=== PATIENT | female | born 1955 | race Caucasian/White ===

== ENCOUNTER 2022-02-05 | Outpatient (REF) | payer OTHER, MEDICARE, SELFPAY ==
--- NOTE | ~2022-02-05 | XR_ITS ---
EXAMINATION: XR HIP, LEFT CLINICAL INFORMATION: Hip pain COMPARISON: None TECHNIQUE: Two views of the left hip. Pelvis one view FINDINGS: Severe left hip arthritis, marked joint space loss, osteophytes, sclerosis. No fracture or dislocation. Right hip joint space is maintained. Bilateral greater trochanteric spurring. No acute pelvic fractures seen. Mild bilateral SI joint arthritis. Mild spondylosis in the visualized lower lumbar spine. No abnormal soft tissue calcification. XR/XR hip LT w PEL1V IMPRESSION: Severe left hip arthritis. Mild bilateral SI joint arthritis.
== END 2022-02-05 00:01 | disposition home or self-care (01) ==
LOC: HO.HOSX
PROVIDERS: Visit Provider Physician Assistant
DX: M25.552 Pain in left hip (principal)
CPT/HCPCS: 73502; 99202

== ENCOUNTER 2023-05-31 11:23 | Inpatient (IN) | payer MEDICARE, SELFPAY ==
--- NOTE | ~2023-05-31 | XR_ITS ---
EXAMINATION: XR CHEST CLINICAL INFORMATION: Shortness of breath COMPARISON: None available. TECHNIQUE: Frontal view of the chest was obtained. FINDINGS: Limited due to patient body habitus. Overall density in the mid to lower lung zone on the right may represent underlying infiltrate. The left lung is grossly clear. There is no convincing evidence for failure. Mild cephalization of the vasculature. No effusion. Cardiac silhouette is prominent but again this is a portable study. Calcification within the aortic arch. XR/XR chest 1V IMPRESSION: Limited exam from patient body habitus and portable study. Indistinct right hilum with opacity in the mid to lower lung zone on the right may represent evolving infiltrate. Follow-up films recommended
[2023-05-31 11:43] VITALS: BP 115/54; BP 122/72; PULSE 94; PULSE 95; RESP 20; TEMP 36.6; O2SAT 96; O2SAT 97; BMI 56.8
--- NOTE | 2023-05-31 13:12 | ECG_ITS ---
Test Reason : CP Blood Pressure : / mmHG Vent. Rate : 091 BPM Atrial Rate : 091 BPM P-R Int : 182 ms QRS Dur : 104 ms QT Int : 370 ms P-R-T Axes : 054 241 051 degrees QTc Int : 455 ms Normal sinus rhythm Right superior axis deviation Pulmonary disease pattern Incomplete right bundle branch block Right ventricular hypertrophy Septal infarct , age undetermined Abnormal ECG No previous ECGs available Referred By: Dona Ryder Electronically Signed By:KAELYN BOWERS MD
--- NOTE | 2023-05-31 13:35 | ED_ITS ---
HPI - General Adult General Chief complaint: General Medical Stated complaint: LOW O2 AND COUGH SINCE MAY 20 Time Seen by Provider: 05/31/23 13:35 Source: patient and family () Mode of arrival: EMS Limitations: no limitations History of Present Illness HPI narrative: 67-year-old female who had a follow-up appointment with her doctor today and was found to have an O2 saturation of 85% on room air, patient was transported by EMS, on 2 L O2 saturation was 97%. Patient states that she has not been feeling well since February of 2023. She states that over a 1 month. She went from 330 lb to 390 lb and had significant peripheral edema and edema of her abdomen. She was started on Lasix 80 mg daily and states that she lost 40 lb. She states that in April of 2023 she developed cellulitis of her lower extremity and was admitted for several days at [facility]. She states she was then in a rehab center and completed 2 weeks of antibiotics. She believes that she has had increased lower extremity peripheral edema as well as edema accumulating in her abdomen. She states that since being discharged from her prison facility, she has had a cough which is occasionally productive of galindo to yellow thick sputum. She initially had fevers but these resolved after 3-4 days and since then she has had no fever or chills. She has had rhinorrhea. She denied sore throat, myalgias arthralgias. She states she does have chest pain with coughing. She complains of shortness of breath and significant dyspnea on exertion. She denied nausea or vomiting. She states that yesterday she developed diarrhea and had 4 orange colored stools with no blood or dark stools. She denied frequency, urgency or dysuria. Related Data Home Medications Medication Instructions Recorded Confirmed bupropion HCl 150 mg 24 hr tablet, 150 mg PO DAILY PRN 02/05/22 02/05/22 extended release furosemide 40 mg tablet 40 mg PO BID 02/05/22 02/05/22 hydrocodone 5 mg-acetaminophen 325 1 tab PO Q6H PRN pain 02/05/22 02/05/22 mg tablet potassium chloride 10 mEq 10 meq PO BID 02/05/22 02/05/22 tablet,extended release(part/cryst) triamcinolone acetonide 0.1 % 1 appl topical BID-TID 02/05/22 02/05/22 topical cream Allergies Allergy/AdvReac Type Severity Reaction Status Date / Time Sulfa (Sulfonamide Allergy Anaphylaxis Verified 02/05/22 10:54 Antibiotics) Review of Systems 2 Review of Systems: Yes all other systems are reviewed and are negative [facility] Past Medical History [facility] Narrative: Past medical history: Cellulitis, peripheral edema-states he has not been worked up for congestive heart failure. Past surgical history: Appendectomy, cholecystectomy, tonsillectomy, uterine ablation. Social history: The patient is a former smoker and states she stop smoking 20 years ago. She states that she smoked 1 pack per day for 31 years. She rarely drinks alcohol. She denies drug use. Onset Date is defined in the Problem List Problems that require an onset date and time if occurred within 24 hrs of arrival to the ED Aortic Dissection and Rupture; Neurologic impairment; Cardiopulmonary Arrest; Endotracheal Intubation; Insertion or Replacement of Mechanical Circulatory Assist Device Medical History (Updated 05/31/23 @ 18:23 by Juan Luis Taveras MD) Degenerative disc disease, lumbar Scoliosis Surgical History (Updated 02/05/22 @ 10:56 by KELSY Peralta) History of cholecystectomy Social History Social History (Updated 02/05/22 @ 10:57 by KELSY Peralta) Patient Tobacco Use Status: Former Tobacco user Smoked in Last 30 Days: No Use of substances other than those prescribed or required for medical reasons: No Advance Directives: No Advance Directives Information Provided: No Current occupational status: unemployed Physical Exam ED Vital Signs: Vital Signs - 24 hr 05/31/23 11:43 05/31/23 14:36 05/31/23 16:29 Temperature 97.8 F Pulse Rate 94 89 94 Respiratory Rate 20 20 14 Blood Pressure 115/54 L 124/64 132/61 Pulse Oximetry 96 94 90 L Oxygen Delivery Method Nasal Cannula Room Air Nasal Cannula Oxygen Flow Rate 2 2 05/31/23 18:07 Temperature Pulse Rate 89 Respiratory Rate 14 Blood Pressure Pulse Oximetry 97 Oxygen Delivery Method Nasal Cannula Oxygen Flow Rate 2 BMI result Body Mass Index 56.8 Vital signs were normal with an O2 saturation of 96% on 3 L of oxygen via nasal cannula Exam: General: Awake, alert in no distress, elevated BMI 56.8. Head: Normocephalic, atraumatic EENT: PERRL, Lids normal, sclera normal, conjunctiva normal, nose normal , ears normal, throat without erythema or exudates Neck: Supple, no adenopathy, no trachea midline or C-spine tenderness Lung: Diffuse rales, vesicular sounds on the right compared to left, slight wheezing at the end of expiration Chest: symmetric movement, nontender Heart: regular rate and rhythm, normal S1, S2 no murmurs or rubs Abdomen: soft, non-tender, nondistended, obese, normal bowel sounds Back: no vertebral tenderness, no CVAT Extremities: no deformities, moves all extremities symmetrically, 1+ pitting edema, symmetric Neuro: Awake, alert, oriented, normal speech, cranial nerves intact, moves all extremities symmetrically Psych: Pleasant, cooperative Medications Administered Discontinued Medications Generic Name Dose Route Start Last Admin Trade Name Freq PRN Reason Stop Dose Admin Furosemide 80 mg 05/31/23 14:11 05/31/23 14:44 Furosemide 100 Mg/10 Ml Vial IVPUSH 05/31/23 14:12 80 mg ONCE ONE Administration Protocol Furosemide 80 mg 05/31/23 16:57 05/31/23 17:59 Furosemide 100 Mg/10 Ml Vial IVPUSH 05/31/23 16:58 80 mg ONCE ONE Administration Protocol Ceftriaxone Sodium 1 gm/ 50 mls @ 100 mls/hr 05/31/23 14:11 05/31/23 15:23 Sodium Chloride IV 05/31/23 14:40 Infused ONCE ONE Infusion Azithromycin 500 mg/ Sodium 250 mls @ 125 mls/hr 05/31/23 14:11 05/31/23 17:28 Chloride IV 05/31/23 16:10 Infused ONCE ONE Infusion Medical Decision Making Medical Decision Making [facility] Narrative: 67-year-old female with a history of peripheral edema, possibly CHF, cellulitis who was following up with her PCP today after being admitted to [facility] for cellulitis (April 2023-2 weeks his prison facility for antibiotics) and for severe peripheral edema/fluid over in March and April of 2023. At her doctor's office, she was found to have low O2 saturation of 85% on room. Patient was then sent to the emergency department on 2 L via nasal cannula her O2 saturation increased to 97%. Patient states the last 2 weeks she has had a intermittent productive cough, shortness of breath, dyspnea on exertion, chest pain with coughing and increased peripheral edema in her abdomen and lower extremities. Vital signs did reveal normal O2 saturation on 2 L of oxygen via nasal cannula otherwise were unremarkable. Examination did reveal elevated BMI 56.8, wheezing and rales on her exam with vesicular sounds on the right lung. She also has 1+ pitting edema in her lower extremities. Following evaluation was ordered: CBC, CMP, PT/INR, PTT, venous blood gas, BNP, lactic acid, blood cultures x2, C diff, urinalysis, COVID-19, influenza Patient was treated with the following medicines: Lasix 80 mg IV, ceftriaxone 1 g IV and Zithromax 500 mg IV. 18:19 Patient put out approximately 800 cc of urine with the above treatment, she was given a 2nd dose of Lasix 80 mg IV My independent interpretation patient's laboratory evaluation is as follows: Potassium elevated 5.2. BUN elevated 35. First troponin 39.7, 3 hour troponin 37.8-less than 50% delta. Venous pH was normal at 7.41. Influenza was positive. Patient was given Tamiflu 75 mg orally Patient's 12 EKG did not reveal evidence for myocardial infarction or ischemic changes Patient may have pulmonary edema versus pneumonia. I I did discuss admission with the covering hospitalist, Dr. Leo Blas. Differential Diagnosis Differential Diagnoses: The differential diagnosis associated with the presentation includes Differential diagnosis includes was not limited to bacterial pneumonia, viral pneumonia, pulmonary edema, anemia, electrolyte abnormality, C difficile Admission/Observation Consideration of admission/observation: Escalation of care including admission/observation considered Lab Data 05/31/23 14:31 05/31/23 14:31 Labs: Lab Results 05/31/23 05/31/23 05/31/23 Range/Units 14:30 14:31 14:35 WBC 8.7 (4.8-10.8) X10*3/uL RBC 4.96 (4.20-5.50) X10*6/uL Hgb 12.2 (12.0-16.0) g/dl Hct 41.5 (37.0-47.0) % MCV 83.7 (80.0-98.0) fL MCH 24.6 L (27.0-33.0) pg MCHC 29.4 L (31.0-35.0) g/dl RDW 18.6 H (11.0-16.0) % Plt Count 251 (160-400) X10*3/uL MPV 10.5 (9.4-12.3) fL Immature Gran % (Auto) 0.6 H (0.0-0.4) % Neut % (Auto) 75.1 H (45-73) % Lymph % (Auto) 16.0 L (20-40) % [place] % (Auto) 7.4 (2-11) % Eos % (Auto) 0.6 (0-4) % Baso % (Auto) 0.3 (0-2) % Lymph # (Auto) 1.4 (1.2-4.9) X10*3/uL [place] # (Auto) 0.6 (0.1-1.2) X10*3/uL Eos # (Auto) 0.1 (0.0-0.4) X10*3/uL Baso # (Auto) 0.0 (0.0-0.2) X10*3/uL Abs Immat Gran (auto) 0.05 H (0.00-0.03) X10*3/uL Absolute Neuts (auto) 6.5 (2.0-8.3) x10*3/uL Absolute Nucleated RBC 0.000 (0.0-0.012) X10*3/uL Nucleated RBC % (auto) 0.0 (0.0-0.2) /100WBC PT 12.4 (11.1-13.3) SEC INR 1.0 (0.9-1.1) APTT 28.1 (26.0-36.4) SEC VBG pH 7.41 (7.32-7.43) VBG pCO2 56 mmHg VBG pO2 48 mmHg VBG HCO3 36 H (22-26) mmol/L VBG O2 Saturation 74.0 % VBG Base Excess 9.4 mmol/L Sodium 141 (135-145) mmol/L Potassium 5.2 H (3.3-5.1) mmol/L Chloride 102 (96-108) mmol/L Carbon Dioxide 30 H (22-29) mmol/L Anion Gap 14 (12-20) BUN 35 H (9-16) mg/dL Creatinine 0.99 (0.5-1.4) mg/dL Estim Creat Clear Calc 87.0 Estimated GFR 56 Random Glucose 115 (60-115) mg/dL Lactic Acid 0.7 (0.5-2.0) mmol/L Calcium 9.9 (8.4-10.2) mg/dL Magnesium 2.2 (1.6-2.6) mg/dL Total Bilirubin 0.5 (0.0-1.0) mg/dL AST 28 (5-31) U/L ALT 18 (0-31) U/L Alkaline Phosphatase 90 (39-117) U/L Troponin I High Sens 39.7 H (<3.5-17.0) ng/L B-Natriuretic Peptide 608 H (<100) pg/mL Total Protein 7.9 (6.5-8.0) g/dL Albumin 3.6 (3.5-5.0) g/dL Urine Color Urine Appearance Urine pH (5.0-9.0) Ur Specific [place] (1.005-1.025) Urine Protein (Neg-Trace) mg/dL Urine Glucose (UA) (Negative) mg/dL Urine Ketones (Negative) mg/dL Urine Blood (Negative) Urine Nitrite (Negative) Ur Leukocyte Esterase (Negative) Urine RBC (0-2) /HPF Urine WBC (0-5) /HPF Ur Squamous Epith Cells (0-2) /HPF Urine Bacteria (None Seen) Hyaline Casts (0-2) /LPF COVID-19 (JELLY) Negative (Negative) COVID-19 Clin Com See Note Influenza Type A (NEHA) Positive A (Negative) Influenza Type B (NEHA) Negative (Negative) Influenza A & B Note See Note 05/31/23 05/31/23 Range/Units 15:30 17:33 WBC (4.8-10.8) X10*3/uL RBC (4.20-5.50) X10*6/uL Hgb (12.0-16.0) g/dl Hct (37.0-47.0) % MCV (80.0-98.0) fL MCH (27.0-33.0) pg MCHC (31.0-35.0) g/dl RDW (11.0-16.0) % Plt Count (160-400) X10*3/uL MPV (9.4-12.3) fL Immature Gran % (Auto) (0.0-0.4) % Neut % (Auto) (45-73) % Lymph % (Auto) (20-40) % [place] % (Auto) (2-11) % Eos % (Auto) (0-4) % Baso % (Auto) (0-2) % Lymph # (Auto) (1.2-4.9) X10*3/uL [place] # (Auto) (0.1-1.2) X10*3/uL Eos # (Auto) (0.0-0.4) X10*3/uL Baso # (Auto) (0.0-0.2) X10*3/uL Abs Immat Gran (auto) (0.00-0.03) X10*3/uL Absolute Neuts (auto) (2.0-8.3) x10*3/uL Absolute Nucleated RBC (0.0-0.012) X10*3/uL Nucleated RBC % (auto) (0.0-0.2) /100WBC PT (11.1-13.3) SEC INR (0.9-1.1) APTT (26.0-36.4) SEC VBG pH (7.32-7.43) VBG pCO2 mmHg VBG pO2 mmHg VBG HCO3 (22-26) mmol/L VBG O2 Saturation % VBG Base Excess mmol/L Sodium (135-145) mmol/L Potassium (3.3-5.1) mmol/L Chloride (96-108) mmol/L Carbon Dioxide (22-29) mmol/L Anion Gap (12-20) BUN (9-16) mg/dL Creatinine (0.5-1.4) mg/dL Estim Creat Clear Calc Estimated GFR Random Glucose (60-115) mg/dL Lactic Acid (0.5-2.0) mmol/L Calcium (8.4-10.2) mg/dL Magnesium (1.6-2.6) mg/dL Total Bilirubin (0.0-1.0) mg/dL AST (5-31) U/L ALT (0-31) U/L Alkaline Phosphatase (39-117) U/L Troponin I High Sens 37.8 H (<3.5-17.0) ng/L B-Natriuretic Peptide (<100) pg/mL Total Protein (6.5-8.0) g/dL Albumin (3.5-5.0) g/dL Urine Color Yellow Urine Appearance Clear Urine pH 5.5 (5.0-9.0) Ur Specific [place] 1.010 (1.005-1.025) Urine Protein Negative (Neg-Trace) mg/dL Urine Glucose (UA) Negative (Negative) mg/dL Urine Ketones Negative (Negative) mg/dL Urine Blood Negative (Negative) Urine Nitrite Positive H (Negative) Ur Leukocyte Esterase Large (3+) H (Negative) Urine RBC 0-2 (0-2) /HPF Urine WBC 21-50 H (0-5) /HPF Ur Squamous Epith Cells 0-2 (0-2) /HPF Urine Bacteria 4+ (None Seen) Hyaline Casts 3-5 (0-2) /LPF COVID-19 (JELLY) (Negative) COVID-19 Clin Com Influenza Type A (NEHA) (Negative) Influenza Type B (NEHA) (Negative) Influenza A & B Note Independent Interpretation Interpretation: My interpretation patient's chest x-ray one view is as follows: Right sided increased infiltrates concerning for pneumonia My interpretation patient's 12 EKG done at 14:02 hours is as follows: Normal sinus rhythm with a rate of 91, normal NE interval, prolonged QRS duration of 104 milliseconds, normal QTC interval, incomplete right bundle-branch block, no ST segment elevation, no ST segment depression, no significant T-wave abnormalities Radiology Impression Discussion of test interpretation with radiology: I have reviewed the radiologist's reading. Radiologist Impression: XR chest 1V IMPRESSION: Limited exam from patient body habitus and portable study. Indistinct right hilum with opacity in the mid to lower lung zone on the right may represent evolving infiltrate. Follow-up films recommended Dictated By: Erick Mcbride MD Critical Care Time Critical Care Time Critical Care Time: Yes Total Critical Care Time: 35 Attestation: Critical Care: The patient was critically ill with a high probability of imminent or life threatening deterioration. I spent greater than 30 minutes of discontinuous time evaluating the patient,delivering critical care at the bedside, discussing and evaluating pertinent data with consultants. Critical care time does not include time spent performing separately billable procedures or teaching. Total time spent performing critical care was 35 minutes. Discharge Plan Discharge Clinical Impression: Pneumonia, Pulmonary edema, Edema, peripheral Patient Disposition: Admitted As Inpatient
[2023-05-31 14:36] VITALS: BP 124/64; PULSE 89; RESP 20; O2SAT 94
[2023-05-31 14:41] LABS: MANUAL DIFF FLAG NO
[2023-05-31 14:42] LABS: Basophils Percent Auto 0.3 % (0-2); Eosinophils Absolute Auto 0.1 X10*3/uL (0.0-0.4); Eosinophils Percent Auto 0.6 % (0-4); Hematocrit 41.5 % (37.0-47.0); Hemoglobin 12.2 g/dl (12.0-16.0); Imm Gran Abs Auto 0.05 X10*3/uL (0.00-0.03); Imm Gran Pct Auto 0.6 % (0.0-0.4); Lymphocytes Absolute Auto 1.4 X10*3/uL (1.2-4.9); Mean Corpuscular HGB Conc 29.4 g/dl (31.0-35.0); Mean Corpuscular Hemoglobin 24.6 pg (27.0-33.0); Mean Corpuscular Volume 83.7 fL (80.0-98.0); Mean Platelet Volume 10.5 fL (9.4-12.3); Monocytes Absolute Auto 0.6 X10*3/uL (0.1-1.2); Monocytes Percent Auto 7.4 % (2-11); Neutrophils Absolute Auto 6.5 x10*3/uL (2.0-8.3); Neutrophils Percent Auto 75.1 % (45-73); Platelet Count 251 X10*3/uL (160-400); Red Blood Count 4.96 X10*6/uL (4.20-5.50); Red Cell Distribution Width 18.6 % (11.0-16.0); White Blood Count 8.7 X10*3/uL (4.8-10.8)
[2023-05-31 14:42] LABS: Venous Blood Gas Refer to POC result
[2023-05-31 14:44] LABS: VBG Base Excess 9.4 mmol/L; VBG HCO3 36 mmol/L (22-26); VBG pCO2 56 mmHg; VBG pH 7.41 (7.32-7.43); VBG pO2 48 mmHg
[2023-05-31] MEDS: Furosemide 100 MG/10 ML VIAL 80 MG IVPUSH ×2 (14:44→17:59)
[2023-05-31] MEDS: cefTRIAXone sodium 1 GM in 0.9 % Sodium Chloride 50 ML IV (14:47)
[2023-05-31 14:48] LABS: Prothrombin Time 12.4 SEC (11.1-13.3)
[2023-05-31 14:50] LABS: Partial Thromboplastin Time 28.1 SEC (26.0-36.4)
[2023-05-31 14:54] LABS: Lactic Acid 0.7 mmol/L (0.5-2.0)
[2023-05-31 14:57] LABS: Alanine Aminotransferase 18 U/L (0-31); Albumin Level 3.6 g/dL (3.5-5.0); Alkaline Phosphatase 90 U/L (39-117); Anion Gap 14 (12-20); Aspartate Amino Transferase 28 U/L (5-31); Bilirubin Total 0.5 mg/dL (0.0-1.0); Blood Urea Nitrogen 35 mg/dL (9-16); Calcium 9.9 mg/dL (8.4-10.2); Carbon Dioxide 30 mmol/L (22-29); Chloride 102 mmol/L (96-108); Estimated Glomerular Filt Rate 56; Glucose Random 115 mg/dL (60-115); Magnesium 2.2 mg/dL (1.6-2.6); Potassium 5.2 mmol/L (3.3-5.1); Sodium 141 mmol/L (135-145); Total Protein 7.9 g/dL (6.5-8.0)
[2023-05-31 15:00] LABS: COVID-19 Test Negative (Negative); IDNOW Serial# 08D9AD1C; IDNOW Serial# 152EDE1D; Influenza A Positive (Negative); Influenza B2 Negative (Negative)
[2023-05-31 15:02] LABS: B Type Natriuretic Peptide 608 pg/mL (<100)
[2023-05-31] MEDS: Azithromycin 500 MG in 0.9 % Sodium Chloride 250 ML 125 MG IV (15:25)
[2023-05-31 15:26] LABS: Troponin-I High Sensitivity 39.7 ng/L (<3.5-17.0)
--- NOTE | 2023-05-31 15:35 | PC.NURSE ---
assumed care of pt at 1500, pt 1 assist to bedside commode for urine sample, 650ml urine output post lasix, urine sent to lab. medicated per JUL. no new orders at this time.
[2023-05-31 15:40] LABS: Appearance Urine Clear; Color Urine Yellow; Glucose Urine UA Negative (Negative); Leukocyte Esterase Urine Large (3+) (Negative); Nitrite Urine Positive (Negative); PH 5.5 (5.0-9.0); UMIC TRIGGER UACC YES; Urine Blood Negative (Negative); Urine Ketones Negative (Negative); Urine Protein Negative (Neg-Trace)
[2023-05-31 16:15] LABS: Bacteria Urine 4+ (None Seen); RBC Urine 0-2 /HPF (0-2); Squamous Epithelial Cell Urine 0-2 /HPF (0-2); UACC Culture Trigger YES; WBC Urine 21-50 /HPF (0-5)
[2023-05-31 16:29] VITALS: BP 132/61; PULSE 94; RESP 14; O2SAT 90
[2023-05-31 17:57] LABS: Troponin-I High Sensitivity 37.8 ng/L (<3.5-17.0)
[2023-05-31 18:07] VITALS: PULSE 89; RESP 14; O2SAT 97
--- NOTE | 2023-05-31 18:09 | PC.NURSE ---
pt medicated per JUL. pt requesting food - cardiac diet ordered. 1275ml urine output.
[2023-05-31] MEDS: Oseltamivir Phosphate 75 MG CAPSULE PO (19:06)
--- NOTE | 2023-05-31 19:09 | PC.NURSE ---
pt medicated per JUL. 600ml urine output in bedside commode.
--- NOTE | 2023-05-31 20:05 | PHA.MEDREC ---
Pharmacy Consult ? Medication Reconciliation Pharmacy has completed the medication reconciliation. Patient had list from provider's office. Patient takes a plethora of supplements as well as Lasix. Cindi Ghosh, Chaim[facility]
[2023-05-31 20:23] VITALS: BP 140/65; PULSE 100; RESP 17; TEMP 36.7; O2SAT 98
--- NOTE | 2023-05-31 20:55 | P.HPHOSP_ITS ---
History of Present Illness Date of Service: 05/31/23 Attending physician on admission: Misha Gomez Chief Complaint: Hypoxia, cough Pt is a 67-year-old female with a PMH significant for?peripheral edema, obesity class III, and hx of appendectomy and cholecystectomy who presents to the ED from PCP office for evaluation of low O2 saturation. Patient was visiting her PCP for follow-up appointment for abdominal cellulitis where she was hospitalized for several days at [facility] in April. While at doctor's office was found to be satting at 85% on RA. Patient with remote hx of smoking (quit 30 years ago), does not have any pulmonary diagnosis, and is not on home O2. Patient reports symptoms began approximately 2 weeks ago when she experienced fever, chills, and developed a constant cough and had congestion. Fever and chills resolved after 5 days, but cough persisted and was productive of galindo to yellow thick sputum. Patient with chronic fatigue, shortness of breath, and dyspnea, reports these being at baseline. Patient denies myalgias or arthralgias. Also complains of chest tightness and lower abdominal pain associated with cough. Patient also reports increasing peripheral edema and at least 10 lb weight gain over these past 2 weeks. Patient states she last February she experienced significant weight gain of 60 lb and had increasing lower leg edema. Was evaluated by her PCP and placed on Lasix 40 mg p.o. b.i.d. and has subsequently lost 40 lbs of weight. 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 Patient denies chest pain/pressure, palpitations. No nausea, vomiting. In the ED pt was afebrile but tachycardic up to 100, satting at 85% on room air. Labs were significant for initial troponin 39.7 with repeat flat at 37.8, BNP elevated at 608. Patient tested positive for influenza type A. UA was also positive for UTI. CXR limited due to body habitus, but did show opacity in the mid to lower lung zone on the right which may represent evolving infiltrate. EKG demonstrated normal sinus rhythm with pulmonary disease pattern but no evidence of significant ST elevations or depressions. Pt was treated with IV Lasix, ceftriaxone, azithromycin, and Tamiflu. Pt will be admitted to the hospital for treatment and further evaluation multiple issues, including acute hypoxic respiratory failure in the setting of influenza infection and superimposed pneumonia, UTI, and possible new onset CHF. Review of Systems 2 Review of Systems: Fever, chills Productive cough Chest tightness and lower abdominal pain associated with cough Increasing weight gain Lower leg edema Chronic shortness of breath, dyspnea Chronic fatigue [facility] Medical History Degenerative disc disease, lumbar Scoliosis Surgical History History of cholecystectomy Social History Patient Tobacco Use Status: Former Tobacco user Current occupational status: unemployed Meds Allergies Allergy/AdvReac Type Severity Reaction Status Date / Time Sulfa (Sulfonamide Allergy Anaphylaxis Verified 02/05/22 10:54 Antibiotics) Home Medications Medication Instructions Recorded Confirmed Last Taken Type furosemide 40 mg tablet 40 mg PO BID 02/05/22 05/31/23 05/30/23 History Bacillus coagulans-inulin 1 1 cap PO DAILY 05/31/23 05/31/23 05/30/23 History billion cell-250 mg capsule ashwagandha extract 1 cap PO DAILY 05/31/23 05/31/23 05/30/23 History berberine-herbal comb no.18 capsule 1 cap PO DAILY 05/31/23 05/31/23 05/30/23 History krill oil 1 cap PO DAILY 05/31/23 05/31/23 05/30/23 History multivitamin with minerals 1 tab PO DAILY 05/31/23 05/31/23 05/30/23 History nlompjxxc-yadjrfj-lokahdjcy capsule 1 cap PO DAILY 05/31/23 05/31/23 05/30/23 History vit C-vit J-rnppgr-tkgtywbk capsule 1 cap PO DAILY 05/31/23 05/31/23 05/30/23 History vitamin D3 25 mcg (1,000 unit)-vit 1 tab PO DAILY 05/31/23 05/31/23 05/30/23 History K2 90 mcg disintegrating tablet (D3 Plus K2 Dots) Physical Exam 2 Vital Signs and Narrative: Vital Signs: Last Vital Signs Temp 98.1 F 05/31/23 20:23 Pulse 100 05/31/23 20:23 Resp 17 05/31/23 20:23 BP 140/65 H 05/31/23 20:23 Pulse Ox 98 05/31/23 20:23 O2 Del Method Nasal Cannula 05/31/23 20:23 O2 Flow Rate 2 05/31/23 20:23 Oxygen Flow Rate 2 05/31/23 11:43 BMI result Body Mass Index 56.8 Constitutional: Alert, audibly wheezing, with constant wet sounding cough. In no acute distress. Mental Status: Oriented to person, place and time. Eyes: Pupils are equal, round, and reactive to light. Ear, Nose, and Throat: Oropharynx clear, mucous membranes moist. Ears and nose without deformities. Trachea midline. Respiratory: Significant diffuse expiratory wheezing bilaterally. Cardiovascular: S1, S2 regular. No murmurs, rubs, or gallops. Gastrointestinal: Abdomen soft, non-tender, non-distended, obese. Normal bowel sounds. Neurologic: Cranial nerves II-XII are grossly intact bilaterally. No focal neurological deficits. Moves all extremities spontaneously. Skin: Warm, dry. Musculoskeletal: No cyanosis or clubbing. Extremities: 2+ bilateral pitting edema. Psychiatric: Normal mood and affect. Results Labs 05/31/23 14:31 05/31/23 14:31 Labs: Laboratory Results - last 24 hr 05/31/23 05/31/23 05/31/23 14:30 14:31 14:35 MCV 83.7 MCH 24.6 L MCHC 29.4 L RDW 18.6 H Plt Count 251 MPV 10.5 Immature Gran % (Auto) 0.6 H Neut % (Auto) 75.1 H Lymph % (Auto) 16.0 L [place] % (Auto) 7.4 Eos % (Auto) 0.6 Baso % (Auto) 0.3 Lymph # (Auto) 1.4 [place] # (Auto) 0.6 Eos # (Auto) 0.1 Baso # (Auto) 0.0 Abs Immat Gran (auto) 0.05 H Absolute Neuts (auto) 6.5 Absolute Nucleated RBC 0.000 Nucleated RBC % (auto) 0.0 PT 12.4 INR 1.0 APTT 28.1 VBG pH 7.41 VBG pCO2 56 VBG pO2 48 VBG HCO3 36 H VBG O2 Saturation 74.0 VBG Base Excess 9.4 Anion Gap 14 Estim Creat Clear Calc 87.0 Estimated GFR 56 Random Glucose 115 Lactic Acid 0.7 Calcium 9.9 Magnesium 2.2 Total Bilirubin 0.5 AST 28 ALT 18 Alkaline Phosphatase 90 B-Natriuretic Peptide 608 H Total Protein 7.9 Albumin 3.6 Urine Color Urine Appearance Urine pH Ur Specific [place] Urine Protein Urine Glucose (UA) Urine Ketones Urine Blood Urine Nitrite Ur Leukocyte Esterase Urine RBC Urine WBC Ur Squamous Epith Cells Urine Bacteria Hyaline Casts COVID-19 (JELLY) Negative COVID-19 Clin Com See Note Influenza Type A (NEHA) Positive A Influenza Type B (NEHA) Negative Influenza A & B Note See Note 05/31/23 15:30 MCV MCH MCHC RDW Plt Count MPV Immature Gran % (Auto) Neut % (Auto) Lymph % (Auto) [place] % (Auto) Eos % (Auto) Baso % (Auto) Lymph # (Auto) [place] # (Auto) Eos # (Auto) Baso # (Auto) Abs Immat Gran (auto) Absolute Neuts (auto) Absolute Nucleated RBC Nucleated RBC % (auto) PT INR APTT VBG pH VBG pCO2 VBG pO2 VBG HCO3 VBG O2 Saturation VBG Base Excess Anion Gap Estim Creat Clear Calc Estimated GFR Random Glucose Lactic Acid Calcium Magnesium Total Bilirubin AST ALT Alkaline Phosphatase B-Natriuretic Peptide Total Protein Albumin Urine Color Yellow Urine Appearance Clear Urine pH 5.5 Ur Specific [place] 1.010 Urine Protein Negative Urine Glucose (UA) Negative Urine Ketones Negative Urine Blood Negative Urine Nitrite Positive H Ur Leukocyte Esterase Large (3+) H Urine RBC 0-2 Urine WBC 21-50 H Ur Squamous Epith Cells 0-2 Urine Bacteria 4+ Hyaline Casts 3-5 COVID-19 (JELLY) COVID-19 Clin Com Influenza Type A (NEHA) Influenza Type B (NEHA) Influenza A & B Note Imaging Radiologist's Impressions: Impressions Chest X-Ray 05/31/23 13:32 IMPRESSION: Limited exam from patient body habitus and portable study. Indistinct right hilum with opacity in the mid to lower lung zone on the right may represent evolving infiltrate. Follow-up films recommended Assessment and Plan (1) Hypoxia: Status: Acute (2) Influenza A: Status: Acute Plan Pt is a 67-year-old female with a PMH significant for?peripheral edema, obesity class III, and hx of appendectomy and cholecystectomy who presents to the ED from PCP office for evaluation of low O2 saturation. Pt will be admitted to the hospital for treatment and further evaluation multiple issues, including acute hypoxic respiratory failure in the setting of influenza infection and superimposed pneumonia, UTI, and possible new onset CHF. Acute hypoxic respiratory failure in the setting of influenza infection Pt desatting as low as 88% on RA; no previous pulmonary diagnosis, not on home O2 Patient with productive cough, SOB, fever and chills x2 weeks Pt with significant diffuse expiratory wheezing bilaterally Will treat with Tamiflu, Duonebs, Solu-Medrol, Mucinex Titrate supplemental O2>92, wean as tolerated Monitor respiratory status Superimposed community-acquired pneumonia In the setting of influenza infection CXR with opacity in the mid to lower lung zone on the right that may represent evolving infiltrate Patient with 2 week cough productive of galindo to yellowish sputum Patient does not meet sepsis criteria: Tachycardia, but no tachypnea, fever, or leukocytosis; lactic acid 0.7 Will treat with ceftriaxone and azithromycin, started 05/31/2023 Treat cough, hypoxia, and wheezing as above UTI UA positive for nitrites, leukocyte esterase, 21-50 wbc's, 4+ bacteria Pt being covered by ceftriaxone above Lower leg edema 2+ bilateral pitting edema, elevated BNP Question of undiagnosed CHF Patient has been on Lasix 40 mg p.o. b.i.d. since last February but no cardiac workup Patient given Lasix 80 mg IV x2 doses in ED Will currently treat with Lasix 40 mg IV b.i.d. starting tomorrow Will get echocardiogram Follow lytes, mg, I/O Daily weights, low-salt diet Cardiology consult Monitor on telemetry Obesity Class III Weight loss encouraged Full Code Attending:?Dr. Mackenzie DVT Prophylaxis: Lovenox Pt will require a hospitalization of at least two nights for treatment of?acute hypoxic respiratory failure in the setting of influenza infection with likely superimposed pneumonia, as well as new onset CHF. Patient will be treated with IV antibiotics, IV steroids, breathing treatments, supplemental oxygen, as well as specialist consultation and additional cardiac workup. Quality Stroke Does the patient have a stroke diagnosis?: No VTE Prior VTE?: No VTE Risk Level:: Medical - moderate - high VTE Device Contraindication: Treatment Not Indicated VTE Drug Contraindication: N/A - Med Ordered
[2023-05-31] MEDS: methylPREDNISolone Sod Succ 40 MG/ML VIAL IVPUSH (22:43)
[2023-05-31] MEDS: Enoxaparin Sodium 40 MG/0.4 ML SYRINGE SUBCUT (22:43)
--- NOTE | 2023-05-31 22:47 | PC.NURSE ---
pt medicated per JUL, desatting to 70s on NC while sleeping - pt open mouth breathing. changed to oxymask w O2 improvement to 92-93% on 5L.
[2023-05-31 22:50] VITALS: O2SAT 77; O2SAT 92
[2023-06-01] VITALS (10 sets, daily range): BP systolic 124–142; BP diastolic 58–68; PULSE 85–99; RESP 16–20; TEMP 36.2–36.8; O2SAT 87–98
[2023-06-01] MEDS: 0.9 % Sodium Chloride Flush 3 ML SYRINGE IVFLUSH ×4 (01:00→22:01)
[2023-06-01] MEDS: Acetaminophen 325 MG TABLET 650 MG PO ×2 (04:37→18:31)
[2023-06-01 06:44] LABS: Anion Gap 13 (12-20); Blood Urea Nitrogen 37 mg/dL (9-16); Calcium 9.5 mg/dL (8.4-10.2); Carbon Dioxide 33 mmol/L (22-29); Chloride 102 mmol/L (96-108); Creatinine Clr Calc Pharmacy 66.7; Estimated Glomerular Filt Rate 41; Glucose Random 187 mg/dL (60-115); Magnesium 2.1 mg/dL (1.6-2.6); Potassium 5.4 mmol/L (3.3-5.1); Sodium 143 mmol/L (135-145)
[2023-06-01] MEDS: Albuterol/Iprat 2.5/0.5MG 3 ML AMPUL.NEB INHALE ×4 (08:10→20:25)
[2023-06-01 08:38] LABS: B Type Natriuretic Peptide 749 pg/mL (<100)
[2023-06-01] MEDS: Multivitamin TABLET 1 TAB PO (09:20)
[2023-06-01] MEDS: Oseltamivir Phosphate 75 MG CAPSULE PO ×2 (09:20→18:33)
--- NOTE | 2023-06-01 09:33 | PM.CNCAR ---
History of Present Illness History of Present Illness Date of Service: 06/01/23 Requesting physician: Leo Blas Consult reason: congestive heart failure Chief complaint: Hypoxia,Flu+,Pnu,CHF,Uti Narrative: I was consulted to see Rosa in cardiology consultation today if hypoxic respiratory failure related to congestive heart failure. She has a pleasant 67-year-old female prior history of obesity, possible sleep apnea although not diagnose, CAD status post stenting 20 years ago, borderline diabetes, present hospital after being referred by primary care physician due to hypoxemia. Patient noted to be in hypoxemic respiratory failure with elevated BNP and diffuse fluid gain consistent with congestive heart failure. She is received diuretics and overnight has a negative balance of about 2.8 L. patient is feeling better. She came to the hospital in saw primary care physician because she was having ongoing fever and chills couple weeks ago and the lead to congestion and cough productive of yellowish sputum. She thought she was having trouble breathing because of the same. She has been getting progressively short of breath and has been gaining weight. She said the problem with gaining weight and fluid gain started in February when she would gained 60 lb. She was then started on Lasix 40 mg b.i.d. and said lost about 40 lb will continue with fluid gain and had never had complete resolution. She subsequently developed cellulitis and was in a half-way facility till end of April. She complains of abdominal distension leg edema orthopnea and worsening shortness of breath. She denies any wheezing. Denies any prolonged palpitation irregular heartbeat. Denies any lightheadedness, syncope. A troponin is borderline elevated but flat Review of Systems Constitutional: Constitutional: Reports weakness and Reports weight gain Eyes: Eyes: Reports no additional eye complaints Cardiovascular: Cardiovascular: Reports Abdominal Distension, Denies chest pain, Reports leg edema, Denies lightheadedness, Denies Loss of Consciousness, Denies palpitations, Reports dyspnea on exertion and Reports orthopnea Respiratory: Respiratory: Reports chest congestion, Reports cough, Reports excessive phlegm production and Reports dyspnea on exertion Genitourinary: Genitourinary: Reports no additional female genitourinary complaints Musculoskeletal: Musculoskeletal: Reports no additional musculoskeletal complaints Neurologic: Reports system reviewed and no additional complaints, except as documented and Reports weakness Endocrine: Endocrine: Denies palpitations PMFSH Past Medical History Medical History CAD (coronary artery disease) Degenerative disc disease, lumbar Scoliosis Surgical History Surgical History History of cholecystectomy Social History Social History Household Members: Spouse Housing: House Do you presently have visiting nurse or other home services: No Patient Tobacco Use Status: Former Tobacco user Smoked in Last 30 Days: No Use of substances other than those prescribed or required for medical reasons: No Currently Displaying Signs/Symptoms of Drug Intoxication Withdrawal: No Have you been hit, kicked, punched, or otherwise hurt by someone within the past year? If so, by whom?: No Do you feel safe in your current relationship?: Yes Is there a partner from a previous relationship who is making you feel unsafe now?: No Are you made to feel afraid or neglected: No Advance Directives: No Advance Directives Information Provided: No Do you have thoughts of harming others: None Do you have a plan to hurt others: No Plan Recently lost weight without trying: No Eating poorly because of decreased appetite: No Nutrition Risks: No Nutritional Risk Patient : No : No Poor oral hygiene: No Current occupational status: unemployed Meds Allergies Allergy/AdvReac Type Severity Reaction Status Date / Time Sulfa (Sulfonamide Allergy Anaphylaxis Verified 02/05/22 10:54 Antibiotics) Active Medications: Current Medications Acetaminophen (Acetaminophen 325 Mg Tablet) 650 mg PO Q6H PRN PRN Reason: Pain, Mild (Pain Scale 1-3) Last Admin: 06/01/23 04:37 Dose: 650 mg Albuterol/Ipratropium (Albuterol/Iprat 2.5/0.5mg 3 Ml Ampul.Neb) 3 ml INHALE RQ4H WHILE AWAKE YASSINE Last Admin: 06/01/23 08:10 Dose: 3 ml Docusate Sodium (Docusate Sodium 100 Mg Capsule) 100 mg PO DAILY PRN PRN Reason: Constipation Doxycycline Monohydrate (Doxycycline Monohydrate 100 Mg Capsule) 100 mg PO Q12H YASSINE Enoxaparin Sodium (Enoxaparin Sodium 40 Mg/0.4 Ml Syringe) 40 mg SUBCUT Q24H YASSINE Last Admin: 05/31/23 22:43 Dose: 40 mg Guaifenesin/Dextromethorphan (Guaifenesin Dm 600/30 1 Tab Tab.Er.12h) 1 tab PO BID PRN PRN Reason: Cough Ceftriaxone Sodium 1 gm/ (Sodium Chloride) 50 mls @ 100 mls/hr IV Q24H YASSINE Azithromycin 500 mg/ Sodium (Chloride) 250 mls @ 125 mls/hr IV Q24H YASSINE Furosemide 200 mg/ Sodium (Chloride) 100 mls @ 2.5 mls/hr IVCONT .Q24H [facility] Melatonin (Melatonin 3 Mg Tablet) 6 mg PO BEDTIME PRN PRN Reason: Insomnia Multivitamins/Vitamin C (Multivitamin Tablet) 1 tab PO DAILY [facility] Last Admin: 06/01/23 09:20 Dose: 1 tab Ondansetron HCl (Ondansetron Hcl 4 Mg/2 Ml Vial) 4 mg IVPUSH Q8H PRN PRN Reason: Nausea and Vomiting Oseltamivir Phosphate (Oseltamivir Phosphate 75 Mg Capsule) 75 mg PO Q12H [facility] Stop: 06/05/23 07:01 Last Admin: 06/01/23 09:20 Dose: 75 mg Sodium Chloride (0.9 % Sodium Chloride Flush 3 Ml Syringe) 3 ml IVFLUSH QSHIFT [facility] Last Admin: 06/01/23 01:00 Dose: 3 ml Home Medications Medication Instructions Recorded Confirmed Last Taken Type furosemide 40 mg tablet 40 mg PO BID 02/05/22 05/31/23 05/30/23 History Bacillus coagulans-inulin 1 1 cap PO DAILY 05/31/23 05/31/23 05/30/23 History billion cell-250 mg capsule ashwagandha extract 1 cap PO DAILY 05/31/23 05/31/23 05/30/23 History berberine-herbal comb no.18 capsule 1 cap PO DAILY 05/31/23 05/31/23 05/30/23 History krill oil 1 cap PO DAILY 05/31/23 05/31/23 05/30/23 History multivitamin with minerals 1 tab PO DAILY 05/31/23 05/31/23 05/30/23 History bzvroighx-hrbtxwx-lzvlrvglx capsule 1 cap PO DAILY 05/31/23 05/31/23 05/30/23 History vit C-vit S-cqriej-xgdcrbvo capsule 1 cap PO DAILY 05/31/23 05/31/23 05/30/23 History vitamin D3 25 mcg (1,000 unit)-vit 1 tab PO DAILY 05/31/23 05/31/23 05/30/23 History K2 90 mcg disintegrating tablet (D3 Plus K2 Dots) Physical Exam Vital Signs: Vital Signs: Last Vital Signs Temp 97.1 F 06/01/23 07:52 Pulse 96 06/01/23 08:14 Resp 18 06/01/23 08:14 BP 141/68 H 06/01/23 07:52 Pulse Ox 96 06/01/23 07:52 O2 Del Method Oxymask 06/01/23 07:52 O2 Flow Rate 5 06/01/23 07:52 Oxygen Flow Rate 2 05/31/23 11:43 BMI result Body Mass Index 56.8 Const: General: cooperative, alert, awake and in distress mild and respiratory Nutritional Appearance: obese morbidly obese Orientation/consciousness: patient oriented x3 Limitations: no limitations HEENT: Head: Yes normocephalic and Yes atraumatic Neck: Neck: Yes trachea midline, Yes supple and Yes JVD Resp: Effort & Inspection: normal respiratory effort Auscultation: crackles and no wheezes Cardio: Jugular venous distension: JVD Rate: regular rate Rhythm: regular rhythm Heart sounds: S1 normal heart sound present, S2 normal heart sound present, no click, no gallops, no murmurs and no rubs GI: Inspection: Yes distended Auscultation: normal bowel sounds Skin: General skin exam: no rashes or lesions noted Neuro: General: patient oriented x3 and no focal motor deficits Extrem: General: No clubbing, No cyanosis and Yes edema Objective Labs and Meds 05/31/23 14:31 06/01/23 06:10 Lab results: Laboratory Results - last 24 hr 05/31/23 05/31/23 05/31/23 14:30 14:31 14:35 WBC 8.7 RBC 4.96 Hgb 12.2 Hct 41.5 MCV 83.7 MCH 24.6 L MCHC 29.4 L RDW 18.6 H Plt Count 251 MPV 10.5 Immature Gran % (Auto) 0.6 H Neut % (Auto) 75.1 H Lymph % (Auto) 16.0 L [place] % (Auto) 7.4 Eos % (Auto) 0.6 Baso % (Auto) 0.3 Lymph # (Auto) 1.4 [place] # (Auto) 0.6 Eos # (Auto) 0.1 Baso # (Auto) 0.0 Abs Immat Gran (auto) 0.05 H Absolute Neuts (auto) 6.5 Absolute Nucleated RBC 0.000 Nucleated RBC % (auto) 0.0 Hold Purple Top PT 12.4 INR 1.0 APTT 28.1 VBG pH 7.41 VBG pCO2 56 VBG pO2 48 VBG HCO3 36 H VBG O2 Saturation 74.0 VBG Base Excess 9.4 Sodium 141 Potassium 5.2 H Chloride 102 Carbon Dioxide 30 H Anion Gap 14 BUN 35 H Creatinine 0.99 Estim Creat Clear Calc 87.0 Estimated GFR 56 Random Glucose 115 Lactic Acid 0.7 Calcium 9.9 Magnesium 2.2 Total Bilirubin 0.5 AST 28 ALT 18 Alkaline Phosphatase 90 Troponin I High Sens 39.7 H B-Natriuretic Peptide 608 H Total Protein 7.9 Albumin 3.6 Urine Color Urine Appearance Urine pH Ur Specific [place] Urine Protein Urine Glucose (UA) Urine Ketones Urine Blood Urine Nitrite Ur Leukocyte Esterase Urine RBC Urine WBC Ur Squamous Epith Cells Urine Bacteria Hyaline Casts COVID-19 (JELLY) Negative COVID-19 Clin Com See Note Influenza Type A (NEHA) Positive A Influenza Type B (NEHA) Negative Influenza A & B Note See Note 05/31/23 05/31/23 06/01/23 15:30 17:33 06:10 WBC RBC Hgb Hct MCV MCH MCHC RDW Plt Count MPV Immature Gran % (Auto) Neut % (Auto) Lymph % (Auto) [place] % (Auto) Eos % (Auto) Baso % (Auto) Lymph # (Auto) [place] # (Auto) Eos # (Auto) Baso # (Auto) Abs Immat Gran (auto) Absolute Neuts (auto) Absolute Nucleated RBC Nucleated RBC % (auto) Hold Purple Top SEE NOTE PT INR APTT VBG pH VBG pCO2 VBG pO2 VBG HCO3 VBG O2 Saturation VBG Base Excess Sodium 143 Potassium 5.4 H Chloride 102 Carbon Dioxide 33 H Anion Gap 13 BUN 37 H Creatinine 1.29 Estim Creat Clear Calc 66.7 Estimated GFR 41 Random Glucose 187 H Lactic Acid Calcium 9.5 Magnesium 2.1 Total Bilirubin AST ALT Alkaline Phosphatase Troponin I High Sens 37.8 H B-Natriuretic Peptide 749 H Total Protein Albumin Urine Color Yellow Urine Appearance Clear Urine pH 5.5 Ur Specific [place] 1.010 Urine Protein Negative Urine Glucose (UA) Negative Urine Ketones Negative Urine Blood Negative Urine Nitrite Positive H Ur Leukocyte Esterase Large (3+) H Urine RBC 0-2 Urine WBC 21-50 H Ur Squamous Epith Cells 0-2 Urine Bacteria 4+ Hyaline Casts 3-5 COVID-19 (JELLY) COVID-19 Clin Com Influenza Type A (NEHA) Influenza Type B (NEHA) Influenza A & B Note EKG shows normal sinus rhythm with rightward axis with right ventricular hypertrophy and pulmonary disease pattern Imaging Radiologist's impression: Impressions Chest X-Ray 05/31/23 13:32 IMPRESSION: Limited exam from patient body habitus and portable study. Indistinct right hilum with opacity in the mid to lower lung zone on the right may represent evolving infiltrate. Follow-up films recommended Assessment and Plan (1) Decompensated heart failure: Status: Acute Decompensated congestive heart failure, new onset in this elderly woman with prior history of CAD long time ago. No recent cardiac evaluation. She still appears significantly fluid overloaded. Continue IV diuresis with Lasix drip at 5 mg an hour. Continue strict intake and output chart. Continue monitor renal function and BNP every day. Will require an echocardiogram to evaluate LV systolic and diastolic function to evaluate for pulmonary hypertension right-sided function. High likelihood of underlying obstructive sleep apnea will need workup for the same as soon as possible after hospitalization and will also require ischemic evaluation which can be done as outpatient. For now given high potassium will avoid Aldactone therapy. Can consider Jardiance therapy. Blood pressure is optimally control at this point in time. Will follow with her Procedures Date of Service Date of Service: 06/01/23
[2023-06-01] MEDS: Doxycycline Monohydrate 100 MG CAPSULE PO (11:19)
[2023-06-01] MEDS: Furosemide 200 MG in 0.9 % Sodium Chloride 80 ML IVCONT (11:19)
[2023-06-01] MEDS: Sodium Zirconium Cyclosilicate 5 GM POWD.PACK PO (11:19)
--- NOTE | 2023-06-01 11:54 | CA_ITS ---
Transthoracic Echocardiogram Patient (Last, First, Middle): Cory Tomas Ora G Gender: Female Date of : 1955 Age: 67 Procedure Date: 06/01/2023 Procedure Type: Transthoracic Echocardiogram Location[place] [facility] [place] Height: 170.18 cm Weight: 164.2 kg BSA: 2.60 m2 Heart Rate: bpm BP: 141 / 68 mmHg Corporate Coordinator: PAM Referring MD: Milad BEASLEY Polygraph Operator: Buddy Allred MD Symptoms: Increasing LLE, weight gain, elevated BNP Study Quality: Technically Difficult, contrast ECG Rhythm: Sinus Conclusions: - 1. Technically limited study despite use of contrast agent 2. [id number] LV systolic dysfunction with mild LVH with impaired relaxation filling pattern and elevated filling pressures 3. Mild mitral regurgitation with poorly visualized cardiac valves 4. Elevated right atrial pressures, RV systolic pressure was not calculated Findings Procedure Information Contrast agent, definity, is being given per protocol without apparent complications. Left Ventricle The left ventricle was not well visualized. Normal left ventricular cavity size. There is mildly increased left ventricular wall thickness. The left ventricular systolic function is mild to moderately decreased. The visually estimated ejection fraction is between 40-45%. Spectral Doppler is indicative of an impaired relaxation filling pattern. Elevated filling pressures. E/E prime ratio is >15, consistent with elevated filling pressures. Right Ventricle The right ventricle was not well visualized. Atria The left atrium is mildly dilated. Interatrial shunt cannot be excluded. The right atrium was not well visualized. Aortic Valve The aortic valve was not well visualized. There is mild calcification of the aortic valve. There is no aortic valve stenosis. There is no aortic valve regurgitation. Mitral Valve The mitral valve was not well visualized. There is mild anterior mitral leaflet thickening. There is mild mitral valve regurgitation. There is no mitral valve stenosis. Pulmonic Valve The pulmonic valve was not well visualized. Tricuspid Valve The tricuspid valve was not well visualized. Significantly elevated right atrial pressure. Great Vessels The aorta was not well visualized. The pulmonary artery was not well visualized. Venous The inferior vena cava is moderately dilated and collapses less than 50% with inspiration. Pericardium/Pleural The pericardium was not well visualized. Prior Study Comparison No prior study available for comparison. Measurements 2D Linear Measurements IVSd: 1.30 0.6-0.9/0.6-1.0 cm LVIDd: 5.70 3.9-5.3/4.2-5.9 cm LVIDd Index: 2.19 2.4-3.2/2.2-3.1 cm/m2 LVIDs: 4.08 2.0-3.6 cm LVPWd: 1.44 0.7-1.1 cm LA Diam: 4.70 2.7-3.8/3.0-4.0 cm LAIDs Index: 1.81 1.5-2.3 cm/m2 LV Mass: 432.66 67-162/88-224 g LV Mass Index: 166.41 43-95/49-115 g/m2 LVOT Diam: 2.30 3.0+(-)1.3 cm 2D Systolic Function EF 4C: 43.50 >55% EF 2C: 46.70 >55% EF BiP: 44.40 >55% Mitral Valve MV Pk E: 1.01 MV PK A: 1.22 MV Decel Time: 161.00 E/A: 0.80 E'Lateral: 6.53 E'Medial: 4.68 E/E' Med: 21.60 E/E' Lat: 15.50 PHT: 47.00 MVA PHT: 4.68 Decel Bolivar: 6.28 Aortic Valve AoV Pk Alexander: 1.72 AoV Mn Alexander: 1.21 AoV VTI: 0.36 AoV Pk Grad: 12.00 Aov Mn Grad: 7.00 VANESSA Cont.VTI: 2.78 LVOT LVOT Pk Alexander: 1.11 LVOT Mn Alexander: 0.76 LVOT VTI: 0.24 LVOT Pk Grad: 5.00 LVOT Mn Grad: 3.00 LVOT Diam: 2.30 LVOT Area: 4.15 Diastolic Function MV Pk E: 1.01 MV Pk A: 1.22 E/A: 0.80 E'Medial: 4.68 E/E' Med: 21.60 E' Laterial: 6.53 E/E' Lat: 15.50 Right Ventricle TAPSE (mm): 20.10 TVS' Alexander: 9.79 Great Vessels Aorta Sinus of Valsalva: 3.63 2.0-3.5 cm Ao Asc: 3.40 2.1-3.4 cm Updated in Other Vendor System with Status of Final Buddy Allred MD electronically signed on 06/02/2023 10:15:35 AM with status of Final
--- NOTE | 2023-06-01 14:17 | HO.PM.IMPN ---
Subjective Subjective Date of Service: 06/01/23 Interval History: Hypoxia, cough Review of Systems no chest pain has leg swelling sob improving Physical Exam Vital Signs: Vital Signs: Last Vital Signs Temp 97.1 F 06/01/23 12:00 Pulse 85 06/01/23 12:00 Resp 16 06/01/23 12:00 BP 124/66 06/01/23 12:00 Pulse Ox 98 06/01/23 12:00 O2 Del Method Nasal Cannula 06/01/23 12:00 O2 Flow Rate 5 06/01/23 12:00 Oxygen Flow Rate 2 05/31/23 11:43 BMI result Body Mass Index 56.8 Appearance: Alert.? Oriented X3.? cvs: rrr, [id number] ,jvd equivocal res: air entry fair but diminshed at bases ,has few scattered rhonchii abd: no rebound or guarding ,nt, bs present. ext pulses present , no cyanosis ,leg 2+ edema. neuro: axo3 , nonfocal. Objective Data Active Medications Acetaminophen (Acetaminophen 325 Mg Tablet) 650 mg PO Q6H PRN PRN Reason: Pain, Mild (Pain Scale 1-3) Last Admin: 06/01/23 04:37 Dose: 650 mg Documented By: ANTOIC Albuterol/Ipratropium (Albuterol/Iprat 2.5/0.5mg 3 Ml Ampul.Neb) 3 ml INHALE RQ4H WHILE AWAKE [facility] Last Admin: 06/01/23 11:36 Dose: 3 ml Documented By: EMMETT Docusate Sodium (Docusate Sodium 100 Mg Capsule) 100 mg PO DAILY PRN PRN Reason: Constipation Doxycycline Monohydrate (Doxycycline Monohydrate 100 Mg Capsule) 100 mg PO Q12H [facility] Last Admin: 06/01/23 11:19 Dose: 100 mg Documented By: PODMORP Enoxaparin Sodium (Enoxaparin Sodium 40 Mg/0.4 Ml Syringe) 40 mg SUBCUT Q24H [facility] Last Admin: 05/31/23 22:43 Dose: 40 mg Documented By: MADDENL Guaifenesin/Dextromethorphan (Guaifenesin Dm 600/30 1 Tab Tab.Er.12h) 1 tab PO BID PRN PRN Reason: Cough Ceftriaxone Sodium 1 gm/ (Sodium Chloride) 50 mls @ 100 mls/hr IV Q24H [facility] Azithromycin 500 mg/ Sodium (Chloride) 250 mls @ 125 mls/hr IV Q24H [facility] Furosemide 200 mg/ Sodium (Chloride) 100 mls @ 2.5 mls/hr IVCONT .Q24H [facility] Last Admin: 06/01/23 11:19 Dose: 5 mg/hr, 2.5 mls/hr Documented By: PODMORP Melatonin (Melatonin 3 Mg Tablet) 6 mg PO BEDTIME PRN PRN Reason: Insomnia Multivitamins/Vitamin C (Multivitamin Tablet) 1 tab PO DAILY [facility] Last Admin: 06/01/23 09:20 Dose: 1 tab Documented By: PODMORP Ondansetron HCl (Ondansetron Hcl 4 Mg/2 Ml Vial) 4 mg IVPUSH Q8H PRN PRN Reason: Nausea and Vomiting Oseltamivir Phosphate (Oseltamivir Phosphate 75 Mg Capsule) 75 mg PO Q12H [facility] Stop: 06/05/23 07:01 Last Admin: 06/01/23 09:20 Dose: 75 mg Documented By: PODMORP Sodium Chloride (0.9 % Sodium Chloride Flush 3 Ml Syringe) 3 ml IVFLUSH QSHIFT [facility] Last Admin: 06/01/23 11:27 Dose: 3 ml Documented By: AKILAHMORP Labs 05/31/23 14:31 06/01/23 06:10 Labs: Laboratory Results - last 24 hr 05/31/23 05/31/23 05/31/23 14:30 14:31 14:35 MCV 83.7 MCH 24.6 L MCHC 29.4 L RDW 18.6 H Plt Count 251 MPV 10.5 Immature Gran % (Auto) 0.6 H Neut % (Auto) 75.1 H Lymph % (Auto) 16.0 L Gibson % (Auto) 7.4 Eos % (Auto) 0.6 Baso % (Auto) 0.3 Lymph # (Auto) 1.4 Gibson # (Auto) 0.6 Eos # (Auto) 0.1 Baso # (Auto) 0.0 Abs Immat Gran (auto) 0.05 H Absolute Neuts (auto) 6.5 Absolute Nucleated RBC 0.000 Nucleated RBC % (auto) 0.0 Hold Purple Top PT 12.4 INR 1.0 APTT 28.1 VBG pH 7.41 VBG pCO2 56 VBG pO2 48 VBG HCO3 36 H VBG O2 Saturation 74.0 VBG Base Excess 9.4 Anion Gap 14 Estim Creat Clear Calc 87.0 Estimated GFR 56 Random Glucose 115 Lactic Acid 0.7 Calcium 9.9 Magnesium 2.2 Total Bilirubin 0.5 AST 28 ALT 18 Alkaline Phosphatase 90 B-Natriuretic Peptide 608 H Total Protein 7.9 Albumin 3.6 Urine Color Urine Appearance Urine pH Ur Specific Ribera Urine Protein Urine Glucose (UA) Urine Ketones Urine Blood Urine Nitrite Ur Leukocyte Esterase Urine RBC Urine WBC Ur Squamous Epith Cells Urine Bacteria Hyaline Casts COVID-19 (JELLY) Negative COVID-19 Clin Com See Note Influenza Type A (NEHA) Positive A Influenza Type B (NEHA) Negative Influenza A & B Note See Note 05/31/23 06/01/23 15:30 06:10 MCV MCH MCHC RDW Plt Count MPV Immature Gran % (Auto) Neut % (Auto) Lymph % (Auto) Gibson % (Auto) Eos % (Auto) Baso % (Auto) Lymph # (Auto) Gibson # (Auto) Eos # (Auto) Baso # (Auto) Abs Immat Gran (auto) Absolute Neuts (auto) Absolute Nucleated RBC Nucleated RBC % (auto) Hold Purple Top SEE NOTE PT INR APTT VBG pH VBG pCO2 VBG pO2 VBG HCO3 VBG O2 Saturation VBG Base Excess Anion Gap 13 Estim Creat Clear Calc 66.7 Estimated GFR 41 Random Glucose 187 H Lactic Acid Calcium 9.5 Magnesium 2.1 Total Bilirubin AST ALT Alkaline Phosphatase B-Natriuretic Peptide 749 H Total Protein Albumin Urine Color Yellow Urine Appearance Clear Urine pH 5.5 Ur Specific Ribera 1.010 Urine Protein Negative Urine Glucose (UA) Negative Urine Ketones Negative Urine Blood Negative Urine Nitrite Positive H Ur Leukocyte Esterase Large (3+) H Urine RBC 0-2 Urine WBC 21-50 H Ur Squamous Epith Cells 0-2 Urine Bacteria 4+ Hyaline Casts 3-5 COVID-19 (JELLY) COVID-19 Clin Com Influenza Type A (NEHA) Influenza Type B (NEHA) Influenza A & B Note Microbiology Microbiology Results: Microbiology 05/31/23 Unknown Urine Culture - Preliminary Urine clean catch - Urine galindo top Gram negative ryan Assessment and Plan (1) Influenza A: Status: Acute (2) Decompensated heart failure: Status: Acute (3) Hypoxia: Status: Acute Plan 67-year-old female with a PMH significant for?peripheral edema, obesity class III, and hx of appendectomy and cholecystectomy who presents to the ED from PCP office for evaluation of low O2 saturation. Pt will be admitted to the hospital for treatment and further evaluation multiple issues, including acute hypoxic respiratory failure in the setting of influenza infection and superimposed pneumonia, UTI, and possible new onset CHF. Acute hypoxic respiratory failure multifactorial chf and in the setting of influenza infection Pt desatting as low as 88% on RA; no previous pulmonary diagnosis, not on home O2 has productive cough, SOB, fever and chills x2 weeks sob imrpoving Will treat with Tamiflu, Duonebs, Mucinex,iv lasix,Titrate supplemental O2>92, wean as tolerated Monitor respiratory status Superimposed community-acquired pneumonia In the setting of influenza infection CXR with opacity in the mid to lower lung zone on the right that may represent evolving infiltrate. continue ceftriaxone and azithromycin, started 05/31/2023. UTI UA positive for nitrites, leukocyte esterase, 21-50 wbc's, 4+ bacteria Pt being covered by ceftriaxone above. Decompensated congestive heart failure:etiology unclear Lower leg edema 2+ bilateral pitting edema, elevated BNP Follow lytes, mg, I/O: neg 3.4 liter Daily weights, low-salt diet echocardiogram switched to iv lasix drip. cardiology following Obesity Class III Weight loss encouraged Full Code DVT Prophylaxis: Lovenox ongoing hospitalization need for 48-72 hrs for : treatment of?acute hypoxic respiratory failure in the setting of influenza infection with likely superimposed pneumonia, as well as new onset CHF. Patient will be treated with IV antibiotics, IV steroids, breathing treatments, supplemental oxygen, as well as specialist consultation and additional cardiac workup. Quality Stroke Does the patient have a stroke diagnosis?: No VTE Prior VTE?: No VTE Risk Level:: Medical - moderate - high VTE Device Contraindication: Treatment Not Indicated VTE Drug Contraindication: N/A - Med Ordered
--- NOTE | 2023-06-01 14:33 | MHC.CM.PN ---
IMM 06/01/23, Pt lives with her , she does not have home health services, she has medical equipment of cane, and walker. She was recently at [facility], and she complained about the food. HCP form was completed and added to her chart, it is her , Gallo Tomas. PCP confirmedL Kobi Cornejo. CM to follow and assist with DC planning.
[2023-06-01] MEDS: cefTRIAXone sodium 1 GM in 0.9 % Sodium Chloride 50 ML IV (15:59)
[2023-06-01] MEDS: Azithromycin 500 MG in 0.9 % Sodium Chloride 250 ML 125 MG IV (16:08)
[2023-06-01] MEDS: Enoxaparin Sodium 40 MG/0.4 ML SYRINGE SUBCUT (22:01)
[2023-06-01] MEDS: Ibuprofen 200 MG TABLET PO (22:59)
[2023-06-02] VITALS (10 sets, daily range): BP systolic 118–125; BP diastolic 53–61; PULSE 85–104; RESP 18–20; TEMP 36.3–37; O2SAT 92–99
[2023-06-02] MEDS: Oseltamivir Phosphate 75 MG CAPSULE PO ×2 (05:33→19:20)
[2023-06-02 07:09] LABS: Anion Gap 14 (12-20); Blood Urea Nitrogen 44 mg/dL (9-16); Carbon Dioxide 33 mmol/L (22-29); Chloride 99 mmol/L (96-108); Creatinine Clr Calc Pharmacy 57.8; Estimated Glomerular Filt Rate 35; Glucose Random 141 mg/dL (60-115); Magnesium 2.1 mg/dL (1.6-2.6); Potassium 4.6 mmol/L (3.3-5.1); Sodium 141 mmol/L (135-145)
[2023-06-02 07:10] LABS: B Type Natriuretic Peptide 625 pg/mL (<100)
[2023-06-02] MEDS: Albuterol/Iprat 2.5/0.5MG 3 ML AMPUL.NEB INHALE ×4 (07:57→19:45)
[2023-06-02] MEDS: Multivitamin TABLET 1 TAB PO (08:44)
--- NOTE | 2023-06-02 08:46 | PC.NURSE ---
pt c/o b/l feet pain 01/27 stating tylenol has no effect. informed
[2023-06-02 10:41] LABS: Uric Acid 13.2 mg/dL (2.4-5.7)
--- NOTE | 2023-06-02 11:49 | PM.PNCARD ---
Subjective Subjective Date of Service: 06/02/23 Principal diagnosis: CHF Interval history: Patient complains of pain in the outside the left ankle. Continues to be fluid overloaded. Total negative balance listed in the chart is about 3.2 L. Her BNP is only marginally reduced. Creatinine has gone up. Echocardiogram shows [id number] LV systolic dysfunction with elevated right atrial pressures. Review of Systems Constitutional: Reports no additional constitutional complaints Eyes: Reports no additional eye complaints Cardiovascular: Reports leg edema, Denies lightheadedness, Denies Loss of Consciousness, Denies palpitations and Reports dyspnea Respiratory: Reports no additional respiratory complaints and Reports dyspnea Gastrointestinal: Reports no additional gastrointestinal complaints Musculoskeletal: Reports other (Left ankle pain) Endocrine: Denies palpitations Physical Exam Vital Signs: Last Vital Signs Temp 97.5 F 06/02/23 07:08 Pulse 94 06/02/23 11:36 Resp 18 06/02/23 11:36 BP 125/61 06/02/23 07:08 Pulse Ox 99 06/02/23 07:08 O2 Del Method Nasal Cannula 06/02/23 07:08 O2 Flow Rate 4 06/02/23 07:08 Oxygen Flow Rate 2 05/31/23 11:43 BMI result Body Mass Index 56.8 Const General: cooperative, alert, awake and in distress mild and respiratory Nutritional Appearance: obese morbidly obese Orientation/consciousness: patient oriented x3 Limitations: no limitations HEENT Head: Yes normocephalic and Yes atraumatic Neck Neck: Yes trachea midline, Yes supple and Yes JVD Resp Effort & Inspection: normal respiratory effort Auscultation: crackles and no wheezes Cardio Jugular venous distension: JVD Rate: regular rate Rhythm: regular rhythm Heart sounds: S1 normal heart sound present, S2 normal heart sound present, no click, no gallops, no murmurs and no rubs GI Inspection: Yes distended Auscultation: normal bowel sounds Skin General skin exam: no rashes or lesions noted Neuro General: patient oriented x3 and no focal motor deficits Extrem General: No clubbing, No cyanosis and Yes edema Objective Labs and Meds 05/31/23 14:31 06/02/23 06:30 Lab results: Laboratory Results - last 24 hr 06/02/23 06:30 Sodium 141 Potassium 4.6 Chloride 99 Carbon Dioxide 33 H Anion Gap 14 BUN 44 H Creatinine 1.49 H Estim Creat Clear Calc 57.8 Estimated GFR 35 Random Glucose 141 H Uric Acid 13.2 H Calcium 9.0 Magnesium 2.1 B-Natriuretic Peptide 625 H Progress Note: A&P Assessment and plan (1) Decompensated heart failure: Status: Acute Assessment and Plan: Decompensated congestive heart failure with [id number] LV systolic dysfunction this elderly woman. High likelihood of underlying obstructive sleep apnea. Clinically still appears to be volume overloaded. BNP is only marginally reduced and intake and output seems to have stagnated. Her creatinine is going up. I would consider diuresing her more aggressively. Continue Lasix drip. Strict intake and output chart needs to be pursued. Continue monitor renal function closely. Can add Jardiance 10 mg to regimen for management of heart failure. Can also add vasodilators therapy with valsartan 40 mg b.i.d. for afterload reduction. Will continue monitor closely. Will follow with you Time Spent With Patient Time: Total time managing care of this patient today ____ minutes. Progress Note: Quality Stroke Does the patient have a stroke diagnosis?: No Procedures Date of Service Date of Service: 06/02/23
[2023-06-02] MEDS: Furosemide 200 MG in 0.9 % Sodium Chloride 80 ML IVCONT (11:56)
[2023-06-02] MEDS: oxyCODONE HCl Immed Release 5 MG TABLET PO (12:34)
[2023-06-02] MEDS: Acetaminophen 325 MG TABLET 650 MG PO (12:34)
[2023-06-02] MEDS: predniSONE 20 MG TABLET 40 MG PO (12:34)
[2023-06-02] MEDS: cefTRIAXone sodium 1 GM in 0.9 % Sodium Chloride 50 ML IV (14:19)
--- NOTE | 2023-06-02 15:46 | HO.PM.IMPN ---
Subjective Subjective Date of Service: 06/02/23 Interval History: Hypoxia, cough Review of Systems sob and leg edema somewhat improving has some cough left ankle pain Physical Exam Vital Signs: Vital Signs: Last Vital Signs Temp 97.4 F 06/02/23 14:55 Pulse 88 06/02/23 15:23 Resp 18 06/02/23 15:23 BP 119/55 L 06/02/23 14:55 Pulse Ox 92 06/02/23 14:55 O2 Del Method Oxymask 06/02/23 14:55 O2 Flow Rate 4 06/02/23 14:55 Oxygen Flow Rate 2 05/31/23 11:43 BMI result Body Mass Index 56.8 Appearance: Alert.? Oriented X3.? cvs: rrr, [id number] ,jvd equivocal res: air entry fair but diminshed at bases ,has few scattered rhonchii abd: no rebound or guarding ,nt, bs present. ext pulses present , no cyanosis ,leg 2+ edema. neuro: axo3 , nonfocal. Objective Data Active Medications Acetaminophen (Acetaminophen 325 Mg Tablet) 650 mg PO Q6H PRN PRN Reason: Pain, Mild (Pain Scale 1-3) Last Admin: 06/02/23 12:34 Dose: 650 mg Documented By: YRN Albuterol/Ipratropium (Albuterol/Iprat 2.5/0.5mg 3 Ml Ampul.Neb) 3 ml INHALE RQ4H WHILE AWAKE [facility] Last Admin: 06/02/23 15:21 Dose: 3 ml Documented By: ART Docusate Sodium (Docusate Sodium 100 Mg Capsule) 100 mg PO DAILY PRN PRN Reason: Constipation Enoxaparin Sodium (Enoxaparin Sodium 40 Mg/0.4 Ml Syringe) 40 mg SUBCUT Q24H [facility] Last Admin: 06/01/23 22:01 Dose: 40 mg Documented By: JOSE Guaifenesin/Dextromethorphan (Guaifenesin Dm 600/30 1 Tab Tab.Er.12h) 1 tab PO BID PRN PRN Reason: Cough Ceftriaxone Sodium 1 gm/ (Sodium Chloride) 50 mls @ 100 mls/hr IV Q24H [facility] Last Infusion: 06/02/23 14:55 Dose: Infused Documented By: YRN Azithromycin 500 mg/ Sodium (Chloride) 250 mls @ 125 mls/hr IV Q24H [facility] Last Infusion: 06/01/23 22:03 Dose: Infused Documented By: JOSE Furosemide 200 mg/ Sodium (Chloride) 100 mls @ 2.5 mls/hr IVCONT .Q24H [facility] Last Admin: 06/02/23 11:56 Dose: 5 mg/hr, 2.5 mls/hr Documented By: YRN Melatonin (Melatonin 3 Mg Tablet) 6 mg PO BEDTIME PRN PRN Reason: Insomnia Multivitamins/Vitamin C (Multivitamin Tablet) 1 tab PO DAILY [facility] Last Admin: 06/02/23 08:44 Dose: 1 tab Documented By: YRN Ondansetron HCl (Ondansetron Hcl 4 Mg/2 Ml Vial) 4 mg IVPUSH Q8H PRN PRN Reason: Nausea and Vomiting Oseltamivir Phosphate (Oseltamivir Phosphate 75 Mg Capsule) 75 mg PO Q12H [facility] Stop: 06/05/23 07:01 Last Admin: 06/02/23 05:33 Dose: 75 mg Documented By: JOSE Sodium Chloride (0.9 % Sodium Chloride Flush 3 Ml Syringe) 3 ml IVFLUSH QSHIFT [facility] Last Admin: 06/02/23 13:24 Dose: Not Given Documented By: YRN Non-Admin Reason: See Note Labs 05/31/23 14:31 06/02/23 06:30 Labs: Laboratory Results - last 24 hr 06/02/23 06:30 Anion Gap 14 Estim Creat Clear Calc 57.8 Estimated GFR 35 Random Glucose 141 H Uric Acid 13.2 H Calcium 9.0 Magnesium 2.1 B-Natriuretic Peptide 625 H Microbiology Microbiology Results: Microbiology 05/31/23 Unknown Urine Culture - Preliminary Urine clean catch - Urine galindo top Klebsiella pneumoniae 05/31/23 14:37 Blood Culture - Preliminary Blood - Venous No growth after 24 hours. 05/31/23 14:30 Blood Culture - Preliminary Blood - Venous No growth after 24 hours. Assessment and Plan (1) Decompensated heart failure: Status: Acute (2) Influenza A: Status: Acute Plan Day -3 : 67-year-old female with a PMH significant for?peripheral edema, obesity class III, and hx of appendectomy and cholecystectomy who presents to the ED from PCP office for evaluation of low O2 saturation. Pt will be admitted to the hospital for treatment and further evaluation multiple issues, including acute hypoxic respiratory failure in the setting of influenza infection and superimposed pneumonia, UTI, and possible new onset CHF. Acute hypoxic respiratory failure multifactorial chf and in the setting of influenza infection Pt desatting as low as 88% on RA; no previous pulmonary diagnosis, not on home O2 has productive cough, SOB, fever and chills x2 weeks sob imrpoving Will treat with Tamiflu, Duonebs, Mucinex,iv lasix,Titrate supplemental O2>92, wean as tolerated Monitor respiratory status Superimposed community-acquired pneumonia In the setting of influenza infection CXR with opacity in the mid to lower lung zone on the right that may represent evolving infiltrate. continue ceftriaxone and azithromycin, started 05/31/2023. UTI UA positive for nitrites, leukocyte esterase, 21-50 wbc's, 4+ bacteria Pt being covered by ceftriaxone above. Decompensated congestive heart failure:etiology unclear Lower leg edema 2+ bilateral pitting edema, elevated BNP Follow lytes, mg, I/O: neg 3.4 liter Daily weights, low-salt diet echocardiogram switched to iv lasix drip. cardiology following acute Gout of left ankle uric acid 13 added predisone and oxycodone. Obesity Class III Weight loss encouraged Full Code DVT Prophylaxis: Lovenox ongoing hospitalization need : treatment of?acute hypoxic respiratory failure in the setting of influenza infection with likely superimposed pneumonia, as well as new onset CHF. Patient will be treated with IV antibiotics, IV steroids, breathing treatments, supplemental oxygen, as well as specialist consultation and additional cardiac workup. Quality Stroke Does the patient have a stroke diagnosis?: No VTE Prior VTE?: No VTE Risk Level:: Medical - moderate - high VTE Device Contraindication: Treatment Not Indicated VTE Drug Contraindication: N/A - Med Ordered
[2023-06-02] MEDS: Azithromycin 500 MG in 0.9 % Sodium Chloride 250 ML 125 MG IV (17:04)
[2023-06-02] MEDS: Valsartan 40 MG TABLET PO (17:04)
[2023-06-02] MEDS: Colchicine 0.6 MG TABLET PO (19:19)
[2023-06-02] MEDS: traMADoL HCL 50 MG TABLET 25 MG PO (19:20)
[2023-06-02] MEDS: 0.9 % Sodium Chloride Flush 3 ML SYRINGE IVFLUSH (19:20)
[2023-06-02] MEDS: Enoxaparin Sodium 40 MG/0.4 ML SYRINGE SUBCUT (22:35)
[2023-06-03] VITALS (10 sets, daily range): BP systolic 110–137; BP diastolic 53–68; PULSE 82–102; RESP 15–20; TEMP 37.1–37.6; O2SAT 92–99
[2023-06-03 00:09] LABS: CDiff Gene PCR NEGATIVE (Negative)
[2023-06-03] MEDS: Oseltamivir Phosphate 75 MG CAPSULE PO ×2 (05:39→18:02)
[2023-06-03] MEDS: traMADoL HCL 50 MG TABLET 25 MG PO ×2 (05:44→18:22)
[2023-06-03 07:10] LABS: Anion Gap 12 (12-20); Blood Urea Nitrogen 44 mg/dL (9-16); Carbon Dioxide 36 mmol/L (22-29); Chloride 98 mmol/L (96-108); Creatinine Clr Calc Pharmacy 59.4; Estimated Glomerular Filt Rate 36; Glucose Random 131 mg/dL (60-115); Potassium 4.7 mmol/L (3.3-5.1); Sodium 141 mmol/L (135-145)
[2023-06-03] MEDS: Albuterol/Iprat 2.5/0.5MG 3 ML AMPUL.NEB INHALE ×4 (08:12→19:40)
[2023-06-03] MEDS: 0.9 % Sodium Chloride Flush 3 ML SYRINGE IVFLUSH ×3 (08:41→22:47)
[2023-06-03] MEDS: ondansetron HCL 4 MG/2 ML VIAL IVPUSH (08:41)
[2023-06-03] MEDS: Multivitamin TABLET 1 TAB PO (08:41)
--- NOTE | 2023-06-03 09:24 | PM.PNCARD ---
Subjective Subjective Date of Service: 06/03/23 Principal diagnosis: CHF Interval history: She states that she is feeling better. Shortness of breath is improved. No chest pain. Review of Systems Review of Systems Yes all other systems are reviewed and are negative Constitutional: Reports as per HPI and Reports no additional constitutional complaints Eyes: Reports as per HPI and Denies no additional eye complaints Denies system reviewed and no additional complaints, except as documented and Reports as per HPI Cardiovascular: Reports as per HPI, Reports no additional cardiovascular complaints, Denies acrocyanosis, Denies cool extremities, Denies chest pain, Reports leg edema, Denies lightheadedness, Denies palpitations and Reports dyspnea Respiratory: Reports as per HPI, Denies no additional respiratory complaints and Reports dyspnea Gastrointestinal: Reports as per HPI and Denies no additional gastrointestinal complaints Genitourinary: Reports as per HPI Musculoskeletal: Reports no additional musculoskeletal complaints and Reports as per HPI Skin/Breast: Reports system reviewed and no additional complaints, except as docu Reports system reviewed and no additional complaints, except as documented and Reports as per HPI Psychiatric: Reports no additional psychiatric complaints and Reports as per HPI Endocrine: Reports no additional endocrine complaints, Reports as per HPI and Denies palpitations Hematologic/Lymphatic: Reports no additional hematologic/lymphatic complaints and Reports as per HPI Allergic/Immunologic: Reports no additional allergic/immunologic complaints and Reports as per HPI Physical Exam Vital Signs: Last Vital Signs Temp 98.9 F 06/03/23 07:18 Pulse 82 06/03/23 08:11 Resp 18 06/03/23 08:11 BP 137/68 06/03/23 07:18 Pulse Ox 96 06/03/23 07:18 O2 Del Method Nasal Cannula 06/03/23 07:18 O2 Flow Rate 4 06/03/23 04:00 Oxygen Flow Rate 2 05/31/23 11:43 BMI result Body Mass Index 56.8 Const General: comfortable and no acute distress Orientation/consciousness: patient oriented x3 HEENT Other: Unremarkable Head: Yes normal to inspection Neck Neck: Yes normal visual inspection Chest Chest palpation & inspection: normal inspection of the chest Resp Auscultation: wheezes and diminished lung sounds Cardio Palpation: normal PMI Heart sounds: S1 normal heart sound present, S2 normal heart sound present, no gallops, no murmurs and no rubs GI Palpation (GI): Soft to palpation Back/Spine/Pelvis Other: unremarkable Skin General skin exam: no rashes or lesions noted Neuro General: patient oriented x3 Extrem Other: 2+ edema Psych Mental Status: mental status grossly normal Objective Labs and Meds 05/31/23 14:31 06/03/23 06:21 Lab results: Laboratory Results - last 24 hr 06/02/23 06/02/23 06/03/23 06:30 21:00 06:21 Hold Purple Top SEE NOTE Sodium 141 Potassium 4.7 Chloride 98 Carbon Dioxide 36 H Anion Gap 12 BUN 44 H Creatinine 1.45 H Estim Creat Clear Calc 59.4 Estimated GFR 36 Random Glucose 131 H Uric Acid 13.2 H Calcium 9.0 Magnesium 2.0 C. difficile Tox B Gene NEGATIVE Progress Note: A&P Assessment and plan (1) Acute on chronic diastolic (congestive) heart failure: Status: Acute (2) Influenza A: Status: Acute Plan Cardiac studies reviewed. EKG with sinus rhythm at 91/Min; right superior axis with incomplete right bundle-branch block/RVH. Can not exclude septal infarct. Echocardiogram with LVEF of 40-45% with elevated filling pressures. Increased right atrial pressures. High sensitivity troponin are slightly abnormal at 39 and 37. Cardiac BNP 608, 749 and 625. Influenza type A positive. Overall, some combination of congestive heart failure/influenza infection. Clinically, she still seems volume overloaded. Continue with diuretics. Listed to be on Lasix drip. Add metolazone. Per input output data, she is negative 3.[address] Blas. Time Spent With Patient Time: Total time managing care of this patient today ____ minutes. Progress Note: Quality Stroke Does the patient have a stroke diagnosis?: No Procedures Date of Service Date of Service: 06/03/23
[2023-06-03] MEDS: Furosemide 200 MG in 0.9 % Sodium Chloride 80 ML IVCONT (11:17)
[2023-06-03] MEDS: metOLazone 5 MG TABLET PO (11:17)
--- NOTE | 2023-06-03 12:17 | HO.PM.IMPN ---
Subjective Subjective Date of Service: 06/03/23 Interval History: Hypoxia, cough Review of Systems still sob and has edema foot pain mproving mild nausea ,no abd pain Physical Exam Vital Signs: Vital Signs: Last Vital Signs Temp 99.6 F 06/03/23 11:24 Pulse 94 06/03/23 11:24 Resp 18 06/03/23 11:24 BP 114/55 L 06/03/23 11:24 Pulse Ox 94 06/03/23 11:24 O2 Del Method Nasal Cannula 06/03/23 11:24 O2 Flow Rate 4 06/03/23 04:00 Oxygen Flow Rate 2 05/31/23 11:43 BMI result Body Mass Index 56.8 Appearance: Alert.? Oriented X3.? cvs: rrr, [id number] ,jvd equivocal res: air entry fair but diminshed at bases ,has few scattered rhonchii abd: no rebound or guarding ,nt, bs present. ext pulses present , no cyanosis ,leg 2+ edema. neuro: axo3 , nonfocal. Objective Data Active Medications Acetaminophen (Acetaminophen 325 Mg Tablet) 650 mg PO Q6H PRN PRN Reason: Pain, Mild (Pain Scale 1-3) Last Admin: 06/02/23 12:34 Dose: 650 mg Documented By: YRN Albuterol/Ipratropium (Albuterol/Iprat 2.5/0.5mg 3 Ml Ampul.Neb) 3 ml INHALE RQ4H WHILE AWAKE [facility] Last Admin: 06/03/23 08:12 Dose: 3 ml Documented By: SHAINA Docusate Sodium (Docusate Sodium 100 Mg Capsule) 100 mg PO DAILY PRN PRN Reason: Constipation Enoxaparin Sodium (Enoxaparin Sodium 40 Mg/0.4 Ml Syringe) 40 mg SUBCUT Q24H [facility] Last Admin: 06/02/23 22:35 Dose: 40 mg Documented By: JOSE Guaifenesin/Dextromethorphan (Guaifenesin Dm 600/30 1 Tab Tab.Er.12h) 1 tab PO BID PRN PRN Reason: Cough Ceftriaxone Sodium 1 gm/ (Sodium Chloride) 50 mls @ 100 mls/hr IV Q24H [facility] Last Infusion: 06/02/23 14:55 Dose: Infused Documented By: YRN Azithromycin 500 mg/ Sodium (Chloride) 250 mls @ 125 mls/hr IV Q24H [facility] Last Infusion: 06/02/23 19:20 Dose: Infused Documented By: JOSE Furosemide 200 mg/ Sodium (Chloride) 100 mls @ 2.5 mls/hr IVCONT .Q24H [facility] Last Admin: 06/03/23 11:17 Dose: 5 mg/hr, 2.5 mls/hr Documented By: GONZALO Melatonin (Melatonin 3 Mg Tablet) 6 mg PO BEDTIME PRN PRN Reason: Insomnia Multivitamins/Vitamin C (Multivitamin Tablet) 1 tab PO DAILY [facility] Last Admin: 06/03/23 08:41 Dose: 1 tab Documented By: GONZALO Ondansetron HCl (Ondansetron Hcl 4 Mg/2 Ml Vial) 4 mg IVPUSH Q8H PRN PRN Reason: Nausea and Vomiting Last Admin: 06/03/23 08:41 Dose: 4 mg Documented By: GONZALO Oseltamivir Phosphate (Oseltamivir Phosphate 75 Mg Capsule) 75 mg PO Q12H [facility] Stop: 06/05/23 07:01 Last Admin: 06/03/23 05:39 Dose: 75 mg Documented By: JOSE Sodium Chloride (0.9 % Sodium Chloride Flush 3 Ml Syringe) 3 ml IVFLUSH QSHIFT [facility] Last Admin: 06/03/23 08:41 Dose: 3 ml Documented By: GONZALO Tramadol HCl (Tramadol Hcl 50 Mg Tablet) 25 mg PO Q6H PRN PRN Reason: Pain, Severe (Pain Scale 7-10) Last Admin: 06/03/23 05:44 Dose: 25 mg Documented By: JOSE Labs 05/31/23 14:31 06/03/23 06:21 Labs: Laboratory Results - last 24 hr 06/02/23 06/03/23 21:00 06:21 Hold Purple Top SEE NOTE Anion Gap 12 Estim Creat Clear Calc 59.4 Estimated GFR 36 Random Glucose 131 H Calcium 9.0 Magnesium 2.0 C. difficile Tox B Gene NEGATIVE Microbiology Microbiology Results: Microbiology 05/31/23 Unknown Urine Culture - Final Urine clean catch - Urine galindo top Klebsiella pneumoniae 05/31/23 14:37 Blood Culture - Preliminary Blood - Venous No growth after 48 hours. 05/31/23 14:30 Blood Culture - Preliminary Blood - Venous No growth after 48 hours. Assessment and Plan (1) Decompensated heart failure: Status: Acute (2) Influenza A: Status: Acute Plan Day 4 : 67-year-old female with a PMH significant for?peripheral edema, obesity class III, and hx of appendectomy and cholecystectomy who presents to the ED from PCP office for evaluation of low O2 saturation. Pt will be admitted to the hospital for treatment and further evaluation multiple issues, including acute hypoxic respiratory failure in the setting of influenza infection and superimposed pneumonia, UTI, and possible new onset CHF. Acute hypoxic respiratory failure multifactorial chf and in the setting of influenza infection Pt desatting as low as 88% on RA; no previous pulmonary diagnosis, not on home O2 has productive cough, SOB, fever and chills x2 weeks sob imrpoving Will treat with Tamiflu, Duonebs, Mucinex,iv lasix,Titrate supplemental O2>92, wean as tolerated Monitor respiratory status Superimposed community-acquired pneumonia In the setting of influenza infection CXR with opacity in the mid to lower lung zone on the right that may represent evolving infiltrate. continue ceftriaxone and azithromycin, started 05/31/2023. UTI UA positive for nitrites, leukocyte esterase, 21-50 wbc's, 4+ bacteria Pt being covered by ceftriaxone above. Decompensated congestive heart failure:etiology unclear:HF with reduced EF. Lower leg edema 2+ bilateral pitting edema, elevated BNP Follow lytes, mg, I/O: neg 3.5 liter Daily weights, low-salt diet echocardiogram: ef 40-45% adjusted iv lasix dripand added metolazone cardiology following acute Gout of left ankle uric acid 13 added predisone and oxycodone. Obesity Class III Weight loss encouraged Full Code DVT Prophylaxis: Lovenox ongoing hospitalization need : treatment of?acute hypoxic respiratory failure in the setting of influenza infection with likely superimposed pneumonia, as well as new onset CHF. Patient will be treated with IV antibiotics, IV steroids, breathing treatments, supplemental oxygen, as well as specialist consultation and additional cardiac workup. Quality Stroke Does the patient have a stroke diagnosis?: No VTE Prior VTE?: No VTE Risk Level:: Medical - moderate - high VTE Device Contraindication: Treatment Not Indicated VTE Drug Contraindication: N/A - Med Ordered
--- NOTE | 2023-06-03 14:00 | MHC.CM.PN ---
EMR reviewed and per MD rounds, pt is not medically cleared for D/C due to management of CHF exacerbation, pt on a lasix drip. CM will continue to follow.
[2023-06-03] MEDS: cefTRIAXone sodium 1 GM in 0.9 % Sodium Chloride 50 ML IV (14:21)
--- NOTE | 2023-06-03 16:00 | P.CDIM_ITS ---
PROVIDER RESPONSE TEXT: To clarify, the appropriate diagnosis supported by the clinical indicators: Other QUERY TEXT: PHYSICIAN'S DOCUMENTATION REQUEST Date of Query: 06/03/2023 09:47 AM EST Patient Name: Cory Tomas Admit Date: 06/01/2023 Dear Leo Blas, A review of the medical record indicates additional documentation may be needed. Please review below and update the documentation accordingly. Clinical Indicators: BMI: 56.8 5ft 7in 164.6kg Progress note - Obesity class III If possible, please provide an associated diagnosis related to the abnormal BMI, such as: Severe or Morbid Obesity With alveolar hypoventilation Severe or Morbid Obesity Without alveolar hypoventilation Other Other (explain) Clinically unable to determine (explain) Thank you, Kaylin Munson, CCS, CDIS Use of terms such as suspected, likely, concern for, or probable (associated with a specific diagnosi s that is being evaluated, monitored, or treated as if it exists) are acceptable and can be coded in the inpatient se tting, when documented at the time of discharge. Please use your independent medical judgment in providing your response. THIS QUERY IS PART OF THE PERMANENT MEDICAL RECORD
[2023-06-03] MEDS: Azithromycin 500 MG in 0.9 % Sodium Chloride 250 ML 125 MG IV (18:01)
[2023-06-03] MEDS: Acetaminophen 325 MG TABLET 650 MG PO (20:11)
[2023-06-03] MEDS: guaiFENesin DM 600/30 1 TAB TAB.ER.12H PO (20:12)
[2023-06-03] MEDS: Melatonin 3 MG TABLET 6 MG PO (22:30)
[2023-06-03] MEDS: Enoxaparin Sodium 40 MG/0.4 ML SYRINGE SUBCUT (22:30)
[2023-06-04] VITALS (12 sets, daily range): BP systolic 113–131; BP diastolic 50–86; PULSE 90–95; RESP 18–20; TEMP 36.2–37.6; O2SAT 76–97
[2023-06-04] MEDS: Acetaminophen 325 MG TABLET 650 MG PO (04:18)
[2023-06-04] MEDS: Oseltamivir Phosphate 75 MG CAPSULE PO ×2 (06:19→18:15)
[2023-06-04 07:20] LABS: Hematocrit 38.5 % (37.0-47.0); Hemoglobin 10.8 g/dl (12.0-16.0); Mean Corpuscular HGB Conc 28.1 g/dl (31.0-35.0); Mean Corpuscular Hemoglobin 24.7 pg (27.0-33.0); Mean Corpuscular Volume 87.9 fL (80.0-98.0); Mean Platelet Volume 10.5 fL (9.4-12.3); Platelet Count 242 X10*3/uL (160-400); Red Blood Count 4.38 X10*6/uL (4.20-5.50); Red Cell Distribution Width 18.9 % (11.0-16.0); White Blood Count 7.3 X10*3/uL (4.8-10.8)
[2023-06-04 07:51] LABS: Anion Gap 13 (12-20); B Type Natriuretic Peptide 666 pg/mL (<100); Blood Urea Nitrogen 52 mg/dL (9-16); Carbon Dioxide 36 mmol/L (22-29); Chloride 93 mmol/L (96-108); Creatinine Clr Calc Pharmacy 62.4; Estimated Glomerular Filt Rate 38; Glucose Random 198 mg/dL (60-115); Potassium 4.8 mmol/L (3.3-5.1); Sodium 137 mmol/L (135-145)
[2023-06-04] MEDS: Albuterol/Iprat 2.5/0.5MG 3 ML AMPUL.NEB INHALE ×2 (08:01→11:33)
[2023-06-04 08:13] LABS: Calcium 9.5 mg/dL (8.4-10.2)
[2023-06-04] MEDS: predniSONE 20 MG TABLET PO (08:26)
[2023-06-04] MEDS: Valsartan 40 MG TABLET PO (08:26)
[2023-06-04] MEDS: Multivitamin TABLET 1 TAB PO (08:26)
[2023-06-04] MEDS: traMADoL HCL 50 MG TABLET 25 MG PO (08:26)
[2023-06-04] MEDS: 0.9 % Sodium Chloride Flush 3 ML SYRINGE IVFLUSH ×3 (08:27→21:18)
[2023-06-04] MEDS: ondansetron HCL 4 MG/2 ML VIAL IVPUSH ×2 (11:53→21:18)
[2023-06-04] MEDS: Furosemide 200 MG in 0.9 % Sodium Chloride 80 ML IVCONT (11:53)
--- NOTE | 2023-06-04 13:37 | HO.PM.IMPN ---
Subjective Subjective Date of Service: 06/04/23 Interval History: Being followed for influenza a, pneumonia, CHF, UTI and gout. Patient complaining of headache, nausea, cough productive of grayish phlegm, denies fever, no chills ,feels less short of breath, improvement in left ankle pain No acute issues overnight. Review of Systems All other system reviewed and negative. Physical Exam Vital Signs: Vital Signs: Last Vital Signs Temp 99.6 F 06/04/23 12:00 Pulse 95 06/04/23 12:00 Resp 18 06/04/23 12:00 BP 116/86 06/04/23 12:00 Pulse Ox 86 L 06/04/23 12:00 O2 Del Method Nasal Cannula 06/04/23 12:00 O2 Flow Rate 2 06/04/23 12:00 Oxygen Flow Rate 2 05/31/23 11:43 BMI result Body Mass Index 56.8 Const: Other: General awake alert x3, in no acute distress. Anicteric sclera Neck no JVD. CVS regular rate rhythm, Respiratory lungs clear to auscultation, no respiratory distress, no wheeze, no rales Gastrointestinal abdomen soft, non tender, bowel sounds audible, no no guarding , no rigidity. Extremities chronic nonpitting edema. Left ankle, no redness, no swelling, no tenderness to palpation, pain with range of motion Neuro nonfocal Skin no rash Psych appropriate affect Objective Data Active Medications Acetaminophen (Acetaminophen 325 Mg Tablet) 650 mg PO Q6H PRN PRN Reason: Pain, Mild (Pain Scale 1-3) Last Admin: 06/04/23 04:18 Dose: 650 mg Documented By: TABITHA Albuterol/Ipratropium (Albuterol/Iprat 2.5/0.5mg 3 Ml Ampul.Neb) 3 ml INHALE RQ4H WHILE AWAKE [facility] Last Admin: 06/04/23 11:33 Dose: 3 ml Documented By: MELLISSA Docusate Sodium (Docusate Sodium 100 Mg Capsule) 100 mg PO DAILY PRN PRN Reason: Constipation Enoxaparin Sodium (Enoxaparin Sodium 40 Mg/0.4 Ml Syringe) 40 mg SUBCUT Q24H [facility] Last Admin: 06/03/23 22:30 Dose: 40 mg Documented By: TABITHA Guaifenesin/Dextromethorphan (Guaifenesin Dm 600/30 1 Tab Tab.Er.12h) 1 tab PO BID PRN PRN Reason: Cough Last Admin: 06/03/23 20:12 Dose: 1 tab Documented By: TABITHA Ceftriaxone Sodium 1 gm/ (Sodium Chloride) 50 mls @ 100 mls/hr IV Q24H [facility] Last Infusion: 06/03/23 14:53 Dose: Infused Documented By: GONZALO Azithromycin 500 mg/ Sodium (Chloride) 250 mls @ 125 mls/hr IV Q24H [facility] Last Infusion: 06/03/23 20:30 Dose: Infused Documented By: TABITHA Furosemide 200 mg/ Sodium (Chloride) 100 mls @ 2.5 mls/hr IVCONT .Q24H [facility] Last Admin: 06/04/23 11:53 Dose: 5 mg/hr, 2.5 mls/hr Documented By: GONZALO Melatonin (Melatonin 3 Mg Tablet) 6 mg PO BEDTIME PRN PRN Reason: Insomnia Last Admin: 06/03/23 22:30 Dose: 6 mg Documented By: TABITHA Multivitamins/Vitamin C (Multivitamin Tablet) 1 tab PO DAILY [facility] Last Admin: 06/04/23 08:26 Dose: 1 tab Documented By: GONZALO Ondansetron HCl (Ondansetron Hcl 4 Mg/2 Ml Vial) 4 mg IVPUSH Q8H PRN PRN Reason: Nausea and Vomiting Last Admin: 06/04/23 11:53 Dose: 4 mg Documented By: GONZALO Oseltamivir Phosphate (Oseltamivir Phosphate 75 Mg Capsule) 75 mg PO Q12H [facility] Stop: 06/05/23 07:01 Last Admin: 06/04/23 06:19 Dose: 75 mg Documented By: TABITHA Prednisone (Prednisone 20 Mg Tablet) 20 mg PO DAILY [facility] Last Admin: 06/04/23 08:26 Dose: 20 mg Documented By: GONZALO Sodium Chloride (0.9 % Sodium Chloride Flush 3 Ml Syringe) 3 ml IVFLUSH QSHIFT [facility] Last Admin: 06/04/23 08:27 Dose: 3 ml Documented By: GONZALO Tramadol HCl (Tramadol Hcl 50 Mg Tablet) 25 mg PO Q6H PRN PRN Reason: Pain, Severe (Pain Scale 7-10) Last Admin: 06/04/23 08:26 Dose: 25 mg Documented By: GONZALO Valsartan (Valsartan 40 Mg Tablet) 40 mg PO DAILY [facility]; Protocol Last Admin: 06/04/23 08:26 Dose: 40 mg Documented By: GONZALO Labs 06/04/23 06:38 06/04/23 06:38 Labs: Laboratory Results - last 24 hr 06/04/23 06:38 MCV 87.9 MCH 24.7 L MCHC 28.1 L RDW 18.9 H Plt Count 242 MPV 10.5 Absolute Nucleated RBC 0.000 Nucleated RBC % (auto) 0.0 Anion Gap 13 Estim Creat Clear Calc 62.4 Estimated GFR 38 Random Glucose 198 H Calcium 9.5 B-Natriuretic Peptide 666 H Assessment and Plan (1) Decompensated heart failure: Status: Acute (2) Influenza A: Status: Acute Plan 67-year-old female with a PMH significant for?peripheral edema, obesity class III, and hx of appendectomy and cholecystectomy who presents to the ED from PCP office for evaluation of low O2 saturation. Pt will be admitted to the hospital for treatment and further evaluation multiple issues, including acute hypoxic respiratory failure in the setting of influenza infection and superimposed pneumonia, UTI, and possible new onset CHF. Acute hypoxic respiratory failure multifactorial due to heart failure with reduced EF and influenza A infection Wean oxygen as tolerated, not on home O2 Shortness of breath improving, persistent productive cough Continue Tamiflu end date 06/05, change Duonebs to as needed, continue Mucinex, on iv lasix drip 5 mg/hour-3.5 L appears euvolemic, at home on 40 mg b.i.d. Lasix ,and potassium supplements Will transition to by mouth Lasix echocardiogram: ef 40-45% Monitor respiratory status Superimposed community-acquired pneumonia CXR with opacity in the mid to lower lung zone on the right that may represent evolving infiltrate. Will DC iv ceftriaxone and azithromycin, started 05/31/2023, since started on ertapenem for UTI. UTI Urine culture grew Klebsiella pneumonia ESBL positive sensitive to ertapenem Will consult ID/will place on ertapenem. acute Gout of left ankle improving uric acid 13, Continue on predisone and oxycodone, wean prednisone over course of 1 week Obesity Class III Weight loss encouraged Full Code DVT Prophylaxis: Lovenox Disposition obtain PT eval ongoing hospitalization need : treatment of?acute hypoxic respiratory failure in the setting of influenza infection with likely superimposed pneumonia, as well as new onset CHF. Patient will be treated with IV antibiotics, IV steroids, breathing treatments, supplemental oxygen. Quality Stroke Does the patient have a stroke diagnosis?: No VTE Prior VTE?: No VTE Risk Level:: Medical - moderate - high VTE Device Contraindication: Treatment Not Indicated VTE Drug Contraindication: N/A - Med Ordered
[2023-06-04] MEDS: Ertapenem Sodium 1 GM in 0.9 % Sodium Chloride 50 ML IV (14:29)
[2023-06-04] MEDS: Furosemide 40 MG TABLET PO (18:15)
[2023-06-04] MEDS: Docusate Sodium 100 MG CAPSULE PO (18:17)
[2023-06-04] MEDS: Melatonin 3 MG TABLET 6 MG PO (21:17)
[2023-06-05] VITALS (9 sets, daily range): BP systolic 106–132; BP diastolic 50–61; PULSE 83–88; RESP 18–20; TEMP 36.1–36.7; O2SAT 92–96
[2023-06-05] MEDS: Enoxaparin Sodium 40 MG/0.4 ML SYRINGE SUBCUT (00:08)
[2023-06-05] MEDS: Acetaminophen 325 MG TABLET 650 MG PO ×2 (03:50→10:49)
[2023-06-05] MEDS: Oseltamivir Phosphate 75 MG CAPSULE PO (06:38)
[2023-06-05 08:03] LABS: Anion Gap 11 (12-20); Blood Urea Nitrogen 62 mg/dL (9-16); Calcium 9.4 mg/dL (8.4-10.2); Carbon Dioxide 36 mmol/L (22-29); Chloride 93 mmol/L (96-108); Creatinine Clr Calc Pharmacy 54.1; Estimated Glomerular Filt Rate 32; Glucose Random 134 mg/dL (60-115); Potassium 4.5 mmol/L (3.3-5.1); Sodium 135 mmol/L (135-145)
[2023-06-05] MEDS: 0.9 % Sodium Chloride Flush 3 ML SYRINGE IVFLUSH ×2 (08:37→21:03)
[2023-06-05] MEDS: predniSONE 10 MG TABLET PO (08:37)
[2023-06-05] MEDS: Multivitamin TABLET 1 TAB PO (08:37)
[2023-06-05] MEDS: guaiFENesin DM 600/30 1 TAB TAB.ER.12H PO (10:53)
--- NOTE | 2023-06-05 11:56 | HO.PM.IMPN ---
Subjective Subjective Date of Service: 06/05/23 Interval History: Complaining of back pain, persistent intermittent nausea, productive cough, chest pressure with coughing,, not on home oxygen has been in bed since admission, Has chronic left hip pain, denies fever, no chills tolerating diet, no urinary symptoms, takes uric acid tablets at home to help with gout. Denies shortness of breath, no orthopnea, no PND. Review of Systems All other system reviewed and negative. Physical Exam Vital Signs: Vital Signs: Last Vital Signs Temp 98.0 F 06/05/23 10:59 Pulse 84 06/05/23 10:59 Resp 20 06/05/23 10:59 BP 123/59 L 06/05/23 10:59 Pulse Ox 95 06/05/23 10:59 O2 Del Method Nasal Cannula 06/05/23 10:59 O2 Flow Rate 1 06/05/23 10:59 Oxygen Flow Rate 2 05/31/23 11:43 BMI result Body Mass Index 56.8 Const: Other: General awake alert x3, in no acute distress. Anicteric sclera Neck no JVD. CVS regular rate rhythm, Respiratory lungs clear to auscultation, no respiratory distress, no wheeze, no rales Gastrointestinal abdomen soft, non tender, bowel sounds audible, no no guarding , no rigidity. Extremities chronic edema. Left ankle, no redness, no swelling, no tenderness to palpation, good range of motion Neuro non focal Skin no rash Psych appropriate affect Objective Data Active Medications Acetaminophen (Acetaminophen 325 Mg Tablet) 650 mg PO Q6H PRN PRN Reason: Pain, Mild (Pain Scale 1-3) Last Admin: 06/05/23 10:49 Dose: 650 mg Documented By: ROSLYN Albuterol/Ipratropium (Albuterol/Iprat 2.5/0.5mg 3 Ml Ampul.Neb) 3 ml INHALE Q6H PRN PRN Reason: shortness of breath Benzonatate (Benzonatate 100 Mg Capsule) 100 mg PO TID YASSINE Docusate Sodium (Docusate Sodium 100 Mg Capsule) 100 mg PO DAILY PRN PRN Reason: Constipation Last Admin: 06/04/23 18:17 Dose: 100 mg Documented By: GONZALO Enoxaparin Sodium (Enoxaparin Sodium 40 Mg/0.4 Ml Syringe) 40 mg SUBCUT Q24H [facility] Last Admin: 06/05/23 00:08 Dose: 40 mg Documented By: TABITHA Guaifenesin/Dextromethorphan (Guaifenesin Dm 600/30 1 Tab Tab.Er.12h) 1 tab PO BID PRN PRN Reason: Cough Last Admin: 06/05/23 10:53 Dose: 1 tab Documented By: ROSLYN Melatonin (Melatonin 3 Mg Tablet) 6 mg PO BEDTIME PRN PRN Reason: Insomnia Last Admin: 06/04/23 21:17 Dose: 6 mg Documented By: TABITHA Multivitamins/Vitamin C (Multivitamin Tablet) 1 tab PO DAILY [facility] Last Admin: 06/05/23 08:37 Dose: 1 tab Documented By: ROSLYN Ondansetron HCl (Ondansetron Hcl 4 Mg/2 Ml Vial) 4 mg IVPUSH Q8H PRN PRN Reason: Nausea and Vomiting Last Admin: 06/04/23 21:18 Dose: 4 mg Documented By: TABITHA Prednisone (Prednisone 10 Mg Tablet) 10 mg PO DAILY [facility] Last Admin: 06/05/23 08:37 Dose: 10 mg Documented By: ROSLYN Sodium Chloride (0.9 % Sodium Chloride Flush 3 Ml Syringe) 3 ml IVFLUSH QSHIFT [facility] Last Admin: 06/05/23 08:37 Dose: 3 ml Documented By: ROSLYN Tramadol HCl (Tramadol Hcl 50 Mg Tablet) 25 mg PO Q6H PRN PRN Reason: Pain, Severe (Pain Scale 7-10) Last Admin: 06/04/23 08:26 Dose: 25 mg Documented By: GONZALO Labs 06/04/23 06:38 06/05/23 07:32 Labs: Laboratory Results - last 24 hr 06/05/23 07:32 Hold Purple Top SEE NOTE Anion Gap 11 L Estim Creat Clear Calc 54.1 Estimated GFR 32 Random Glucose 134 H Calcium 9.4 Assessment and Plan (1) Decompensated heart failure: Status: Acute (2) Influenza A: Status: Acute Plan 67-year-old female with a PMH significant for?peripheral edema, obesity class III, and hx of appendectomy and cholecystectomy who presents to the ED from PCP office for evaluation of low O2 saturation. Pt will be admitted to the hospital for treatment and further evaluation multiple issues, including acute hypoxic respiratory failure in the setting of influenza infection and superimposed pneumonia, UTI, and possible new onset CHF. Acute hypoxic respiratory failure multifactorial due to heart failure with reduced EF and influenza A infection Wean oxygen as tolerated, not on home O2, currently on 2 L finger oximetry 94% Shortness of breath improved, persistent productive cough Continue Tamiflu end date 06/05, Duonebs as needed, added Tessalon t.i.d. continue Mucinex, Hold Lasix due to worsening creatinine echocardiogram: ef 40-45% Monitor respiratory status Acute kidney injury likely due to over-diuresis,will hold Lasix, gentle IV fluids follow BMP Superimposed community-acquired pneumonia CXR with opacity in the mid to lower lung zone on the right that may represent evolving infiltrate. s/p iv ceftriaxone and azithromycin finish 5 day course of antibiotics UTI Urine culture grew Klebsiella pneumonia ESBL positive sensitive to ertapenem Will consult ID/will place on ertapenem. acute Gout of left ankle improving uric acid 13, patient take uric acid supplements, will wean prednisone strongly recommend to avoid using uric acid tablets Obesity Class III Weight loss encouraged Full Code DVT Prophylaxis: Lovenox Disposition obtain PT eval ongoing hospitalization need : treatment of?acute hypoxic respiratory failure in the setting of influenza infection with likely superimposed pneumonia, as well as new onset CHF. Patient will be treated with IV antibiotics, breathing treatments, supplemental oxygen. Quality Stroke Does the patient have a stroke diagnosis?: No VTE Prior VTE?: No VTE Risk Level:: Medical - moderate - high VTE Device Contraindication: Treatment Not Indicated VTE Drug Contraindication: N/A - Med Ordered
--- NOTE | 2023-06-05 11:57 | MHC.CM.PN ---
PER MR ROUNDS, PLAN IS FOR P.T. EVALUATION AND POTENTIAL DC ON 05/1823. CM FOLLOWING
[2023-06-05] MEDS: 0.9 % Sodium Chloride 1,000 ML 100 ML IVCONT (12:59)
[2023-06-05] MEDS: Benzonatate 100 MG CAPSULE PO ×2 (14:12→21:00)
--- NOTE | 2023-06-05 15:12 | W.PM.IDCN ---
History of Present Illness Data of Consult Service Date: 06/05/23 Requesting physician: Nedra Romero Primary Care Provider: Kobi Cornejo MD HPI Reason for consult: urine positive ESBL She presents with shortness of breath since 05/20. She had a cough as well as felt chilled. She was treated with Tamiflu for flu A. She reports no dysuria on admission and now. Somehow urine culture sent and is ESBL Klebsiella. Review of Systems Review of Systems: Yes all other systems are reviewed and are negative [facility] Past Medical History Medical History CAD (coronary artery disease) Degenerative disc disease, lumbar Scoliosis Family History Family history: reviewed and not pertinent Surgical History Surgical History History of cholecystectomy Social History Social History Household Members: Spouse Housing: House Do you presently have visiting nurse or other home services: No Patient Tobacco Use Status: Former Tobacco user Smoked in Last 30 Days: No Use of substances other than those prescribed or required for medical reasons: No Currently Displaying Signs/Symptoms of Drug Intoxication Withdrawal: No Have you been hit, kicked, punched, or otherwise hurt by someone within the past year? If so, by whom?: No Do you feel safe in your current relationship?: Yes Is there a partner from a previous relationship who is making you feel unsafe now?: No Are you made to feel afraid or neglected: No Advance Directives: No Advance Directives Information Provided: No Do you have thoughts of harming others: None Do you have a plan to hurt others: No Plan Recently lost weight without trying: No Eating poorly because of decreased appetite: No Nutrition Risks: No Nutritional Risk Patient : No : No Poor oral hygiene: No service: No Current occupational status: unemployed Meds Allergies Allergy/AdvReac Type Severity Reaction Status Date / Time Sulfa (Sulfonamide Allergy Anaphylaxis Verified 02/05/22 10:54 Antibiotics) Active Medications: Current Medications Acetaminophen (Acetaminophen 325 Mg Tablet) 650 mg PO Q6H PRN PRN Reason: Pain, Mild (Pain Scale 1-3) Last Admin: 06/05/23 10:49 Dose: 650 mg Albuterol/Ipratropium (Albuterol/Iprat 2.5/0.5mg 3 Ml Ampul.Neb) 3 ml INHALE Q6H PRN PRN Reason: shortness of breath Benzonatate (Benzonatate 100 Mg Capsule) 100 mg PO TID [facility] Last Admin: 06/05/23 14:12 Dose: 100 mg Docusate Sodium (Docusate Sodium 100 Mg Capsule) 100 mg PO DAILY PRN PRN Reason: Constipation Last Admin: 06/04/23 18:17 Dose: 100 mg Enoxaparin Sodium (Enoxaparin Sodium 40 Mg/0.4 Ml Syringe) 40 mg SUBCUT Q24H [facility] Last Admin: 06/05/23 00:08 Dose: 40 mg Guaifenesin/Dextromethorphan (Guaifenesin Dm 600/30 1 Tab Tab.Er.12h) 1 tab PO BID PRN PRN Reason: Cough Last Admin: 06/05/23 10:53 Dose: 1 tab Sodium Chloride (Ns) 1,000 mls @ 100 mls/hr IVCONT .Q10H [facility] Stop: 06/05/23 22:14 Last Admin: 06/05/23 12:59 Dose: 100 mls/hr Melatonin (Melatonin 3 Mg Tablet) 6 mg PO BEDTIME PRN PRN Reason: Insomnia Last Admin: 06/04/23 21:17 Dose: 6 mg Multivitamins/Vitamin C (Multivitamin Tablet) 1 tab PO DAILY [facility] Last Admin: 06/05/23 08:37 Dose: 1 tab Ondansetron HCl (Ondansetron Hcl 4 Mg/2 Ml Vial) 4 mg IVPUSH Q8H PRN PRN Reason: Nausea and Vomiting Last Admin: 06/04/23 21:18 Dose: 4 mg Prednisone (Prednisone 10 Mg Tablet) 10 mg PO DAILY [facility] Last Admin: 06/05/23 08:37 Dose: 10 mg Sodium Chloride (0.9 % Sodium Chloride Flush 3 Ml Syringe) 3 ml IVFLUSH QSHIFT [facility] Last Admin: 06/05/23 15:09 Dose: Not Given Tramadol HCl (Tramadol Hcl 50 Mg Tablet) 25 mg PO Q6H PRN PRN Reason: Pain, Severe (Pain Scale 7-10) Last Admin: 06/04/23 08:26 Dose: 25 mg Home Medications Medication Instructions Recorded Confirmed Last Taken Type furosemide 40 mg tablet 40 mg PO BID 02/05/22 05/31/23 05/30/23 History Bacillus coagulans-inulin 1 1 cap PO DAILY 05/31/23 05/31/23 05/30/23 History billion cell-250 mg capsule ashwagandha extract 1 cap PO DAILY 05/31/23 05/31/23 05/30/23 History berberine-herbal comb no.18 capsule 1 cap PO DAILY 05/31/23 05/31/23 05/30/23 History krill oil 1 cap PO DAILY 05/31/23 05/31/23 05/30/23 History multivitamin with minerals 1 tab PO DAILY 05/31/23 05/31/23 05/30/23 History fkgkjbbog-cbuqyzk-uvntrgyct capsule 1 cap PO DAILY 05/31/23 05/31/23 05/30/23 History vit C-vit U-xlxzvg-pyvwujzd capsule 1 cap PO DAILY 05/31/23 05/31/23 05/30/23 History vitamin D3 25 mcg (1,000 unit)-vit 1 tab PO DAILY 05/31/23 05/31/23 05/30/23 History K2 90 mcg disintegrating tablet (D3 Plus K2 Dots) Physical Exam Vital Signs: Vital Signs: Last Vital Signs Temp 97.5 F 06/05/23 15:00 Pulse 86 06/05/23 15:00 Resp 20 06/05/23 15:00 BP 132/59 L 06/05/23 15:00 Pulse Ox 95 06/05/23 15:00 O2 Del Method Nasal Cannula 06/05/23 15:00 O2 Flow Rate 6 06/05/23 15:00 Oxygen Flow Rate 2 05/31/23 11:43 BMI result Body Mass Index 56.8 Const: General: cooperative Eyes: General: appearance normal, both eyes and all related structures Resp: Effort & Inspection: normal respiratory effort Cardio: Rate: regular rate Rhythm: regular rhythm GI: Inspection: Yes normal to inspection Results Labs 06/04/23 06:38 06/05/23 07:32 Labs: BMP 06/05/23 07:32 Sodium 135 Potassium 4.5 Chloride 93 L Carbon Dioxide 36 H BUN 62 H Creatinine 1.59 H Calcium 9.4 Microbiology Microbiology Results: Microbiology 05/31/23 Unknown Urine clean catch - Urine galindo top Urine Culture - Final Klebsiella pneumoniae 05/31/23 14:37 Blood - Venous Blood Culture - Preliminary No growth after 48 hours. 05/31/23 14:30 Blood - Venous Blood Culture - Preliminary No growth after 48 hours. Assessment and Plan (1) Acute on chronic diastolic (congestive) heart failure: Status: Acute (2) Decompensated heart failure: Status: Acute (3) Influenza A: Status: Acute Plan There is no evidence UTI,colonized with ESBL Klebsiella likely Stop IV Ertapenem No followup culture.
[2023-06-06] VITALS (9 sets, daily range): BP systolic 105–128; BP diastolic 57–72; PULSE 78–116; RESP 16–20; TEMP 36.1–37; O2SAT 73–99
[2023-06-06] MEDS: Acetaminophen 325 MG TABLET 650 MG PO ×2 (00:33→10:50)
[2023-06-06] MEDS: Enoxaparin Sodium 40 MG/0.4 ML SYRINGE SUBCUT ×2 (00:34→23:08)
[2023-06-06] MEDS: Albuterol/Iprat 2.5/0.5MG 3 ML AMPUL.NEB INHALE (03:22)
[2023-06-06 07:08] LABS: Anion Gap 10 (12-20); Blood Urea Nitrogen 65 mg/dL (9-16); Calcium 9.5 mg/dL (8.4-10.2); Carbon Dioxide 36 mmol/L (22-29); Chloride 96 mmol/L (96-108); Creatinine Clr Calc Pharmacy 65.7; Estimated Glomerular Filt Rate 40; Glucose Random 118 mg/dL (60-115); Potassium 4.1 mmol/L (3.3-5.1); Sodium 138 mmol/L (135-145)
[2023-06-06] MEDS: predniSONE 10 MG TABLET PO (09:21)
[2023-06-06] MEDS: Multivitamin TABLET 1 TAB PO (09:21)
[2023-06-06] MEDS: Benzonatate 100 MG CAPSULE PO ×3 (09:21→23:08)
[2023-06-06] MEDS: 0.9 % Sodium Chloride Flush 3 ML SYRINGE IVFLUSH ×3 (09:21→23:08)
--- NOTE | 2023-06-06 15:13 | P.PNIM_ITS ---
Subjective Subjective Date of Service: 06/06/23 Interval History: Feeling better this morning no complain of back pain, no nausea, persistent productive cough but improving, no shortness of breath, no PND, no orthopnea, noted to have hypoxia at rest and with activity without oxygen, no headache, no fevers, no chills, sleeping good, refusing short-term rehab, Review of Systems All other system reviewed and negative. Physical Exam 2 Vital Signs: Vital Signs: Last Vital Signs Temp 98.6 F 06/06/23 11:33 Pulse 88 06/06/23 11:33 Resp 20 06/06/23 11:33 BP 105/70 06/06/23 11:33 Pulse Ox 94 06/06/23 11:33 O2 Del Method Nasal Cannula 06/06/23 11:33 O2 Flow Rate 2 06/06/23 11:33 Oxygen Flow Rate 2 05/31/23 11:43 BMI result Body Mass Index 56.8 Const: Other: General awake alert x3, in no acute distress. Anicteric sclera Neck no JVD. CVS regular rate rhythm, Respiratory lungs diminished, no respiratory distress, no wheeze, no rales Gastrointestinal abdomen soft, non tender, bowel sounds audible, no guarding , no rigidity. Extremities chronic edema, Left ankle, no redness, no swelling, no tenderness to palpation, good range of motion Neuro non focal Skin no rash Psych appropriate affect Objective Data Active Medications Acetaminophen (Acetaminophen 325 Mg Tablet) 650 mg PO Q6H PRN PRN Reason: Pain, Mild (Pain Scale 1-3) Last Admin: 06/06/23 10:50 Dose: 650 mg Documented By: GUERO Albuterol/Ipratropium (Albuterol/Iprat 2.5/0.5mg 3 Ml Ampul.Neb) 3 ml INHALE Q6H PRN PRN Reason: shortness of breath Last Admin: 06/06/23 03:22 Dose: 3 ml Documented By: BRIE Benzonatate (Benzonatate 100 Mg Capsule) 100 mg PO TID [facility] Last Admin: 06/06/23 09:21 Dose: 100 mg Documented By: GUERO Docusate Sodium (Docusate Sodium 100 Mg Capsule) 100 mg PO DAILY PRN PRN Reason: Constipation Last Admin: 06/04/23 18:17 Dose: 100 mg Documented By: GONZALO Enoxaparin Sodium (Enoxaparin Sodium 40 Mg/0.4 Ml Syringe) 40 mg SUBCUT Q24H [facility] Last Admin: 06/06/23 00:34 Dose: 40 mg Documented By: AMBER Guaifenesin/Dextromethorphan (Guaifenesin Dm 600/30 1 Tab Tab.Er.12h) 1 tab PO BID PRN PRN Reason: Cough Last Admin: 06/05/23 10:53 Dose: 1 tab Documented By: ROSLYN Melatonin (Melatonin 3 Mg Tablet) 6 mg PO BEDTIME PRN PRN Reason: Insomnia Last Admin: 06/04/23 21:17 Dose: 6 mg Documented By: TABITHA Multivitamins/Vitamin C (Multivitamin Tablet) 1 tab PO DAILY [facility] Last Admin: 06/06/23 09:21 Dose: 1 tab Documented By: GUERO Ondansetron HCl (Ondansetron Hcl 4 Mg/2 Ml Vial) 4 mg IVPUSH Q8H PRN PRN Reason: Nausea and Vomiting Last Admin: 06/04/23 21:18 Dose: 4 mg Documented By: TABITHA Prednisone (Prednisone 10 Mg Tablet) 10 mg PO DAILY [facility] Last Admin: 06/06/23 09:21 Dose: 10 mg Documented By: GUERO Sodium Chloride (0.9 % Sodium Chloride Flush 3 Ml Syringe) 3 ml IVFLUSH QSHIFT [facility] Last Admin: 06/06/23 09:21 Dose: 3 ml Documented By: GUERO Tramadol HCl (Tramadol Hcl 50 Mg Tablet) 25 mg PO Q6H PRN PRN Reason: Pain, Severe (Pain Scale 7-10) Last Admin: 06/04/23 08:26 Dose: 25 mg Documented By: GONZALO Labs 06/04/23 06:38 06/06/23 06:42 Labs: Laboratory Results - last 24 hr 06/06/23 06:42 Anion Gap 10 L Estim Creat Clear Calc 65.7 Estimated GFR 40 Random Glucose 118 H Calcium 9.5 Microbiology Microbiology Results: Microbiology 05/31/23 14:37 Blood Culture - Final Blood - Venous No growth after 5 days. 05/31/23 14:30 Blood Culture - Final Blood - Venous No growth after 5 days. Assessment and Plan (1) Decompensated heart failure: Status: Acute (2) Influenza A: Status: Acute Plan 67-year-old female with a PMH significant for?peripheral edema, obesity class III, and hx of appendectomy and cholecystectomy who presents to the ED from PCP office for evaluation of low O2 saturation. Pt will be admitted to the hospital for treatment and further evaluation multiple issues, including acute hypoxic respiratory failure in the setting of influenza infection and superimposed pneumonia, UTI, and possible new onset CHF. Acute hypoxic respiratory failure multifactorial due to heart failure with reduced EF and influenza A infection Shortness of breath improved, persistent productive cough s/p Tamiflu , Duonebs as needed, on Tessalon t.i.d. continue Mucinex prn, echocardiogram: ef 40-45% patient qualifies for 2 L of oxygen at rest and with activity. Does have chronic bilateral lower extremity edema, not in overt heart failure, hold Lasix today, Monitor respiratory status. Acute kidney injury likely due to over-diuresis, resolved, follow BMP. Superimposed community-acquired pneumonia CXR with opacity in the mid to lower lung zone on the right that may represent evolving infiltrate. s/p iv ceftriaxone and azithromycin finish 5 day course of antibiotics UTI Urine culture grew Klebsiella pneumonia ESBL positive sensitive to ertapenem , seen by ID she recommend no antibiotics, likely colonization with ESBL Klebsiella acute Gout of left ankle improving uric acid 13, patient take uric acid supplements, will wean prednisone strongly recommend to avoid using uric acid tablets Obesity Class III Weight loss encouraged Full Code DVT Prophylaxis: Lovenox Disposition PT recommend short-term rehab ongoing hospitalization need : For monitoring of respiratory status and safe disposition to rehab. Quality Stroke Does the patient have a stroke diagnosis?: No VTE Prior VTE?: No VTE Risk Level:: Medical - moderate - high VTE Device Contraindication: Treatment Not Indicated VTE Drug Contraindication: N/A - Med Ordered
--- NOTE | 2023-06-06 15:13 | MHC.CM.PN ---
EMR reviewed and per MD rounds, pt is medically cleared for D/C. PT recommends STR, pt is declining stating she wants to go home with [facility]NA. This CM called pts Edwin to discuss D/C plan. Edwin is not able to provide the amount of care that she will need. Edwin states he will be coming in this evening to speak with his about her going to STR. MD aware.
[2023-06-07 03:58] VITALS: BP 134/75; PULSE 84; RESP 20; TEMP 36.1; O2SAT 92
[2023-06-07 07:32] VITALS: BP 146/71; PULSE 90; RESP 16; TEMP 36.9; O2SAT 93
[2023-06-07 07:58] LABS: Hematocrit 39.9 % (37.0-47.0); Hemoglobin 11.5 g/dl (12.0-16.0); Mean Corpuscular HGB Conc 28.8 g/dl (31.0-35.0); Mean Corpuscular Volume 83.3 fL (80.0-98.0); Mean Platelet Volume 10.5 fL (9.4-12.3); Platelet Count 228 X10*3/uL (160-400); Red Blood Count 4.79 X10*6/uL (4.20-5.50); Red Cell Distribution Width 18.3 % (11.0-16.0); White Blood Count 5.6 X10*3/uL (4.8-10.8)
[2023-06-07 08:06] LABS: Anion Gap 11 (12-20); Blood Urea Nitrogen 49 mg/dL (9-16); Calcium 9.9 mg/dL (8.4-10.2); Carbon Dioxide 36 mmol/L (22-29); Chloride 98 mmol/L (96-108); Creatinine Clr Calc Pharmacy 90.7; Estimated Glomerular Filt Rate 58; Glucose Random 119 mg/dL (60-115); Potassium 4.3 mmol/L (3.3-5.1); Sodium 141 mmol/L (135-145)
[2023-06-07] MEDS: Multivitamin TABLET 1 TAB PO (08:07)
[2023-06-07] MEDS: Acetaminophen 325 MG TABLET 650 MG PO (08:07)
[2023-06-07] MEDS: Benzonatate 100 MG CAPSULE PO (08:07)
--- NOTE | 2023-06-07 11:01 | MHC.CM.PN ---
Addendum entered by Luciana De La O 06/07/23 11:02: Pt in agreement with plan. Original Note: Second IMM given 06/07. Pt is medically cleared for D/C to [facility] for STR, facility has auth. Pt will transport via BLS at 1pm today.
[2023-06-07 11:29] VITALS: BP 116/52; PULSE 83; RESP 20; TEMP 36.7; O2SAT 96
--- NOTE | 2023-06-07 11:58 | PM.DS ---
DS: Providers Provider Date of Service: 06/07/23 Date of admission: 05/31/23 22:11 Primary care physician: Kobi Cornejo MD Consults: 05/31/23 22:24 Consult to Cardiology Routine Consulting Provider: [facility] Cardiovascular Services Reason for consultation: Pt with LLE, weight gain, elevated BNP, ?undiagnosed CHF 06/04/23 13:56 Consult to Infectious Diseases Routine Consulting Provider: Nae Ledesma Reason for consultation: esbl + uti Has provider been notified: No DS: Diagnosis Discharge Diagnosis (1) Decompensated heart failure: Status: Acute (2) Influenza A: Status: Acute DS: Summary Hospital Course Hospital Course: history of presenting illness: Date of Service: 05/31/23 Attending physician on admission: Misha Gomez Chief Complaint: Hypoxia, cough Pt is a 67-year-old female with a PMH significant for?peripheral edema, obesity class III, and hx of appendectomy and cholecystectomy who presents to the ED from PCP office for evaluation of low O2 saturation. Patient was visiting her PCP for follow-up appointment for abdominal cellulitis where she was hospitalized for several days at [facility] in April. While at doctor's office was found to be satting at 85% on RA. Patient with remote hx of smoking (quit 30 years ago), does not have any pulmonary diagnosis, and is not on home O2. Patient reports symptoms began approximately 2 weeks ago when she experienced fever, chills, and developed a constant cough and had congestion. Fever and chills resolved after 5 days, but cough persisted and was productive of galindo to yellow thick sputum. Patient with chronic fatigue, shortness of breath, and dyspnea, reports these being at baseline. Patient denies myalgias or arthralgias. Also complains of chest tightness and lower abdominal pain associated with cough. Patient also reports increasing peripheral edema and at least 10 lb weight gain over these past 2 weeks. Patient states she last February she experienced significant weight gain of 60 lb and had increasing lower leg edema. Was evaluated by her PCP and placed on Lasix 40 mg p.o. b.i.d. and has subsequently lost 40 lbs of weight. She has not been to a environmental services aide or had any cardiac workup completed, including echocardiogram. Patient denies chest pain/pressure, palpitations. No nausea, vomiting. In the ED pt was afebrile but tachycardic up to 100, satting at 85% on room air. Labs were significant for initial troponin 39.7 with repeat flat at 37.8, BNP elevated at 608. Patient tested positive for influenza type A. UA was also positive for UTI. CXR limited due to body habitus, but did show opacity in the mid to lower lung zone on the right which may represent evolving infiltrate. EKG demonstrated normal sinus rhythm with pulmonary disease pattern but no evidence of significant ST elevations or depressions. Pt was treated with IV Lasix, ceftriaxone, azithromycin, and Tamiflu. Pt will be admitted to the hospital for treatment and further evaluation multiple issues, including acute hypoxic respiratory failure in the setting of influenza infection and superimposed pneumonia, UTI, and possible new onset CHF. Hospital course: 67-year-old female with a PMH significant for?peripheral edema, obesity class III, and hx of appendectomy and cholecystectomy who presents to the ED from PCP office for evaluation of low O2 saturation. admitted to the hospital for treatment and further evaluation multiple issues, including acute hypoxic respiratory failure in the setting of influenza A infection and superimposed pneumonia, UTI, and possible new onset CHF. Acute hypoxic respiratory failure multifactorial due to heart failure with reduced EF , community-acquired pneumonia and influenza A infection, chest x-ray showed opacity in the mid to lower lung zone on the right may representing evolving infiltrate, patient treated with 5 day course of Tamiflu, iv ceftriaxone and iv azithromycin, DuoNeb updraft treatment and IV Lasix, and supportive care with cough medications and analgesics, patient responded well to above treatment she finished course of Tamiflu and antibiotics, due to persistent hypoxia home O2 eval was obtained patient qualifies for 2 L of oxygen at rest and with activity, at present she appears euvolemic and has been continued on Lasix 40 mg daily patient has chronic lower extremity edema left greater than right she denies orthopnea, PND or shortness of breath. She is now being discharged home to rehab facility, recommend to continue cough medication as needed. echocardiogram showed: ef 40-45% and impaired relaxation filling pattern. Acute kidney injury likely due to over-diuresis, resolved. UTI Urine culture grew Klebsiella pneumonia ESBL positive seen by ID she recommend no antibiotics, likely colonization with ESBL Klebsiella. acute Gout of left ankle resolved with steroids patient recommended not to use uric acid supplements. Obesity Class III Weight loss encouraged, Chronic left hip pain recommend PT and ambulation. Time Attestation Discharge coordination time: Greater than 30 minutes Quality: Safe Use of Opioids Does Pt have an Active Cancer Diagnosis on the Problem List?: No Quality: Stroke Does the patient have a stroke diagnosis?: No Physical Exam Vital Signs: Vital Signs: Last Vital Signs Temp 98.0 F 06/07/23 11:29 Pulse 83 06/07/23 11:29 Resp 20 06/07/23 11:29 BP 116/52 L 06/07/23 11:29 Pulse Ox 96 06/07/23 11:29 O2 Del Method Nasal Cannula 06/07/23 11:29 O2 Flow Rate 2 06/07/23 11:29 Oxygen Flow Rate 2 05/31/23 11:43 BMI result Body Mass Index 56.8 Const: Other: General awake alert x3, in no acute distress. Anicteric sclera Neck no JVD. CVS regular rate rhythm, Respiratory lungs diminished, no respiratory distress, no wheeze, no rales Gastrointestinal abdomen soft, non tender, bowel sounds audible, no guarding , no rigidity. Extremities chronic edema,L>RT Left ankle, no redness, no swelling, no tenderness to palpation, good range of motion Neuro non focal. Skin no rash Psych appropriate affect DS: Data Data Completed and Pending Labs on day of discharge: Laboratory Results - last 24 hr 06/07/23 06:51 WBC 5.6 RBC 4.79 Hgb 11.5 L Hct 39.9 MCV 83.3 MCH 24.0 L MCHC 28.8 L RDW 18.3 H Plt Count 228 MPV 10.5 Absolute Nucleated RBC 0.000 Nucleated RBC % (auto) 0.0 Sodium 141 Potassium 4.3 Chloride 98 Carbon Dioxide 36 H Anion Gap 11 L BUN 49 H Creatinine 0.95 Estim Creat Clear Calc 90.7 Estimated GFR 58 Random Glucose 119 H Calcium 9.9 Discharge Plan Discharge Anticipated Discharge Date/Time: 06/07/23 11:52 Patient Disposition: Xfer SNF Discharge Diagnosis: Acute hypoxic respiratory failure due to CHF with reduced EF Influenza a infection Community-acquired pneumonia Acute kidney injury Referrals: [facility] [Outside] - 1 Week Kobi Cornejo MD [Primary Care Provider] - 1 Week Discharge Medications: New ipratropium-albuterol 0.5 mg-3 mg(2.5 mg base)/3 mL Solution For Nebulization 3 ml inhalation Q6H PRN (Reason: shortness of breath) Qty: 90 0RF docusate sodium 100 mg Capsule 100 mg PO DAILY PRN (Reason: Constipation) Qty: 30 0RF Mucus DM 30-600 mg Tablet Extended Release 12 Hr 1 tab PO BID PRN (Reason: Cough) Qty: 12 0RF tramadol 50 mg Tablet 25 mg PO Q6H PRN (Reason: Pain, Severe (Pain Scale 7-10)) Qty: 30 0RF Continued multivitamin with minerals Tablet 1 tab PO DAILY vit C-vit F-eeldkr-lwtsmjgd Capsule 1 cap PO DAILY berberine-herbal comb no.18 Capsule 1 cap PO DAILY dozytrxhs-ghnngrj-ukryicppi Capsule 1 cap PO DAILY D3 Plus K2 Dots 25 mcg (1,000 unit)-90 mcg Tablet,Disintegrating 1 tab PO DAILY Bacillus coagulans-inulin 1 billion-250 cell-mg Capsule 1 cap PO DAILY ashwagandha extract 1 cap PO DAILY krill oil 1 cap PO DAILY Changed furosemide 40 mg tablet 40 mg PO DAILY Qty: 20 0RF Discharge Orders: Discharge Order (Routine); Ordered 06/07/23 Ordered By: Nedra Romero Diet: Advance to usual diet Activity on Discharge: As tolerated Stand Alone Forms: Patient Portal Discharge page Care Plan Goals: Acute hypoxic respiratory failure due to influenza a infection finished course of Tamiflu Acute CHF resolved JUAN C resolved Use oxygen 2 L at rest and with activity Physical therapy Health Concerns: Continue all medications as ordered Plan of Treatment: Follow-up with primary care physician. Assessment: As above
== END 2023-06-07 13:04 | disposition skilled nursing facility (03) | DRG 193 ==
LOC: HO.ED 18:23 → HO.EDOVER 22:21 → HO.IMC 06-01 01:01
PROVIDERS: Internal Medicine; Physician Assistant Medical; Admitting Provider Student in an Organized Health Care Education/Training Program; Emergency Provider Emergency Medicine Emergency Medical Services; PCP Internal Medicine; Visit Provider Hospitalist
DX: J10.00 Influenza due to other identified influenza virus with unspecified type of pneumonia (principal); I50.21 Acute systolic (congestive) heart failure; J96.01 Acute respiratory failure with hypoxia; Z68.43 Body mass index [BMI] 50.0-59.9, adult; N39.0 Urinary tract infection, site not specified; Z16.12 Extended spectrum beta lactamase (ESBL) resistance; M25.552 Pain in left hip; M10.9 Gout, unspecified; B96.1 Klebsiella pneumoniae [K. pneumoniae] as the cause of diseases classified elsewhere; G89.29 Other chronic pain; G47.33 Obstructive sleep apnea (adult) (pediatric); E66.01 Morbid (severe) obesity due to excess calories; I25.10 Atherosclerotic heart disease of native coronary artery without angina pectoris; Z71.3 Dietary counseling and surveillance; Z20.822 Contact with and (suspected) exposure to COVID-19; Z87.891 Personal history of nicotine dependence; Z79.899 Other long term (current) drug therapy
CPT/HCPCS: 36415; 71045; 80048; 80053; 81001; 82803; 83605; 83735; 83880; 84484; 84550; 85025; 85027; 85610; 85730; 87040; 87086; 87088; 87186; 87493; 87502; 87635; 93005; 93306; 94640; 97162; 97530; 99285; J0456; J0696; J1335; J1650; J1940; J2405; J2920; Q9957

== ENCOUNTER → 2023-05-31 13:12 | Outpatient (BNV) | payer MEDICARE, SELFPAY | PROVIDERS: Emergency Provider Emergency Medicine Emergency Medical Services; PCP Internal Medicine; Visit Provider Internal Medicine Cardiovascular Disease | DX: R94.31 Abnormal electrocardiogram [ECG] [EKG] (principal) | CPT/HCPCS: 93010 ==

== ENCOUNTER 2023-05-31 22:11 | Outpatient (BNV) | payer MEDICARE, SELFPAY | END 2023-06-01 11:54 | PROVIDERS: Admitting Provider Student in an Organized Health Care Education/Training Program; Emergency Provider Emergency Medicine Emergency Medical Services; PCP Internal Medicine; Visit Provider Internal Medicine Cardiovascular Disease | DX: I50.9 Heart failure, unspecified (principal) | CPT/HCPCS: 93306 ==

== ENCOUNTER → 2023-05-31 22:11 | Outpatient (BNV) | payer MEDICARE, SELFPAY | PROVIDERS: Admitting Provider Student in an Organized Health Care Education/Training Program; Emergency Provider Emergency Medicine Emergency Medical Services; PCP Internal Medicine; Visit Provider Student in an Organized Health Care Education/Training Program | DX: I50.9 Heart failure, unspecified (principal); J10.1 Influenza due to other identified influenza virus with other respiratory manifestations | CPT/HCPCS: 99223; 99232; 99233; 99239 ==

== ENCOUNTER → 2023-05-31 22:11 | Outpatient (BNV) | payer MEDICARE, SELFPAY | PROVIDERS: Admitting Provider Student in an Organized Health Care Education/Training Program; Emergency Provider Emergency Medicine Emergency Medical Services; PCP Internal Medicine; Visit Provider Internal Medicine Cardiovascular Disease | DX: I50.33 Acute on chronic diastolic (congestive) heart failure (principal); J10.1 Influenza due to other identified influenza virus with other respiratory manifestations | CPT/HCPCS: 99222; 99233 ==

== ENCOUNTER → 2023-05-31 22:11 | Outpatient (BNV) | payer MEDICARE, SELFPAY | PROVIDERS: Admitting Provider Student in an Organized Health Care Education/Training Program; Emergency Provider Emergency Medicine Emergency Medical Services; PCP Internal Medicine; Visit Provider Internal Medicine | DX: I50.33 Acute on chronic diastolic (congestive) heart failure (principal); I50.9 Heart failure, unspecified; J10.1 Influenza due to other identified influenza virus with other respiratory manifestations | CPT/HCPCS: 99222 ==

== ENCOUNTER 2023-07-19 16:54 | Outpatient (REF) | payer MEDICARE, SELFPAY ==
[2023-07-19 18:03] LABS: Anion Gap 16 (12-20); Blood Urea Nitrogen 41 mg/dL (9-16); Calcium 9.6 mg/dL (8.4-10.2); Carbon Dioxide 32 mmol/L (22-29); Chloride 99 mmol/L (96-108); Estimated Glomerular Filt Rate 44; Glucose Random 153 mg/dL (60-115); Potassium 3.9 mmol/L (3.3-5.1); Sodium 143 mmol/L (135-145)
[2023-07-20 04:48] LABS: Estimated Average Glucose 160 mg/dL; Hemoglobin A1c % 7.2 % (<6.0)
== END 2023-07-19 16:55 | disposition home or self-care (01) ==
LOC: HO.LAB 16:54
PROVIDERS: PCP Internal Medicine; Visit Provider Internal Medicine
DX: E11.638 Type 2 diabetes mellitus with other oral complications (principal); I50.89 Other heart failure
CPT/HCPCS: 36415; 80048; 83036

== ENCOUNTER 2023-07-30 16:18 | Outpatient (REF) | payer MEDICARE, SELFPAY ==
[2023-07-30 18:32] LABS: Anion Gap 18 (12-20); Carbon Dioxide 36 mmol/L (22-29); Chloride 91 mmol/L (96-108); Potassium 3.4 mmol/L (3.3-5.1); Sodium 142 mmol/L (135-145)
== END 2023-07-30 16:19 | disposition home or self-care (01) ==
LOC: HO.LAB 16:18
PROVIDERS: PCP Internal Medicine; Visit Provider Internal Medicine
DX: R60.0 Localized edema (principal)
CPT/HCPCS: 36415; 80051

== ENCOUNTER 2023-08-27 09:00 | Outpatient (REF) | payer MEDICARE, SELFPAY ==
[2023-08-27 11:37] LABS: Anion Gap 13 (12-20); Blood Urea Nitrogen 58 mg/dL (9-16); Calcium 9.3 mg/dL (8.4-10.2); Carbon Dioxide 32 mmol/L (22-29); Chloride 101 mmol/L (96-108); Cholesterol 143 mg/dL (<200); Estimated Glomerular Filt Rate 45; Glucose Random 182 mg/dL (60-115); HDL Cholesterol 49 mg/dL (>40); LDL Cholesterol Calculated 79 mg/dL (<100); Potassium 3.8 mmol/L (3.3-5.1); Sodium 142 mmol/L (135-145); Triglycerides 75 mg/dL (<150)
[2023-08-30 11:42] LABS: NT-proBNP 4221 pg/mL (<125)
== END 2023-08-27 09:01 | disposition home or self-care (01) ==
LOC: HO.LAB 09:00
PROVIDERS: PCP Internal Medicine; Visit Provider Internal Medicine Cardiovascular Disease
DX: Z13.6 Encounter for screening for cardiovascular disorders (principal); R06.02 Shortness of breath
CPT/HCPCS: 36415; 80048; 80061; 83880

== ENCOUNTER → 2023-09-17 10:25 | Outpatient (BNVA) | payer MEDICARE, SELFPAY | PROVIDERS: PCP Internal Medicine; Visit Provider Physician Assistant Surgical ==

== ENCOUNTER 2023-10-02 14:43 | Inpatient (IN) | payer MEDICARE, SELFPAY ==
--- NOTE | ~2023-10-02 | XR_ITS ---
EXAMINATION: XR CHEST CLINICAL INFORMATION: Congestive heart failure COMPARISON: Chest x-ray on 10/02/2023 TECHNIQUE: Frontal view of the chest was obtained. FINDINGS: pulmonary vascularity. LUNGS: Diffuse vascular and interstitial prominence is seen in bilateral lungs. No pneumothorax is seen. BONES: Bony skeleton is intact. XR/XR chest 1V IMPRESSION: Unchanged prominent cardiomegaly and pulmonary venous congestion.
--- NOTE | ~2023-10-02 | XR_ITS ---
EXAMINATION: PORTABLE CHEST 1 VIEW CLINICAL INFORMATION: hypoxia. COMPARISON: 05/31/2023. TECHNIQUE: Portable frontal view of the chest was obtained. FINDINGS: The lungs are well expanded. No focal infiltrate, effusion, or pneumothorax. Central vascular prominence is seen I cannot exclude a component of mild edema, although they. This is similar to the prior study. Cardiac silhouette is prominent but unchanged. No acute bony abnormality seen. XR/XR chest 1V IMPRESSION: Central vascular prominence and prominent cardiac silhouette similar to the prior study. I cannot exclude a component of mild edema in this setting.
[2023-10-02 15:15] VITALS: BP 116/64; BP 118/56; PULSE 97; PULSE 99; RESP 20; TEMP 36.3; O2SAT 84; O2SAT 91; BMI 64.6
--- NOTE | 2023-10-02 15:49 | ED_ITS ---
HPI - General Adult General Chief complaint: General Medical Stated complaint: ABD PAIN,F/C ISSUE W/[facility] PER EMS Time Seen by Provider: 10/02/23 15:44 History of Present Illness HPI narrative: This is a 68-year-old woman with a past medical history obesity, peripheral edema, appendectomy, cholecystectomy, recent admission May 2023 for hypoxia found to have influenza a and heart failure with reduced ejection fraction (LVEF 40-45%) who presents for evaluation. She states that over the last couple of weeks she has developed incontinence. She states that when she feels the urge to use the restroom to urinate by the time she goes to get up to go to the commode she will inadvertently urinate on herself. She states no associated dysuria or urinary frequency/urgency. She states no fevers, chills or flank pain. She states no abdominal pain, nausea or vomiting. She states no chest pain or dyspnea. She reports discussing with her primary care doctor who ordered a Lozano catheter to be placed, but states that the visiting nurse was unable to place Lozano catheter after 3 attempts and so she was instructed to come to the emergency room for Lozano catheter placement. She states no previous urogynecological surgical history. Related Data Home Medications ?Medication ?Instructions ?Recorded ?Confirmed Bacillus coagulans-inulin 1 1 cap PO DAILY 05/31/23 05/31/23 billion cell-250 mg capsule ashwagandha extract 1 cap PO DAILY 05/31/23 05/31/23 berberine-herbal comb no.18 capsule 1 cap PO DAILY 05/31/23 05/31/23 krill oil 1 cap PO DAILY 05/31/23 05/31/23 multivitamin with minerals 1 tab PO DAILY 05/31/23 05/31/23 vglorsesj-agwwkpy-oyniqlnos capsule 1 cap PO DAILY 05/31/23 05/31/23 vit C-vit C-sbprqw-wcygbvxz capsule 1 cap PO DAILY 05/31/23 05/31/23 vitamin D3 25 mcg (1,000 unit)-vit 1 tab PO DAILY 05/31/23 05/31/23 K2 90 mcg disintegrating tablet (D3 Plus K2 Dots) Previous Rx's ?Medication ?Instructions ?Recorded dextromethorphan-guaifenesin 30 1 tab PO BID PRN Cough #12 tabs 01/19/24 mg-600 mg tablet extended [id number] hr (Mucus DM) docusate sodium 100 mg capsule 100 mg PO DAILY PRN Constipation 06/07/23 #30 caps furosemide 40 mg tablet 40 mg PO DAILY #20 tabs 06/07/23 ipratropium 0.5 mg-albuterol 3 mg 3 ml inhalation Q6H PRN shortness 06/07/23 (2.5 mg base)/3 mL nebulization of breath #90 mL soln tramadol 50 mg tablet 25 mg (1/2 x 50 mg) PO Q6H PRN 06/07/23 Pain, Severe (Pain Scale 7-10) #30 tabs Allergies Allergy/AdvReac Type Severity Reaction Status Date / Time Penicillins Allergy Anaphylaxis Verified 10/02/23 15:19 Sulfa (Sulfonamide Allergy Anaphylaxis Verified 10/02/23 15:19 Antibiotics) Review of Systems 2 Review of Systems: ROS as per HPI [facility] Past Medical History Medical History CAD (coronary artery disease) Degenerative disc disease, lumbar Scoliosis Surgical History History of cholecystectomy Social History Social History Household Members: Spouse Housing: House Do you presently have visiting nurse or other home services: No Patient Tobacco Use Status: Former Tobacco user Smoked in Last 30 Days: No Use of substances other than those prescribed or required for medical reasons: No Advance Directives: Yes Advance Directives Information Provided: No Advance Directives on File: No service: No Current occupational status: unemployed Physical Exam ED Vital Signs: Vital Signs - 24 hr 10/02/23 15:15 10/02/23 18:11 10/02/23 18:15 Temperature 97.4 F 97.8 F Pulse Rate 97 100 105 H Respiratory Rate 20 22 H Blood Pressure 118/56 L 120/56 L Pulse Oximetry 91 L 89 L 84 L Oxygen Delivery Method Room Air Room Air Room Air Oxygen Flow Rate 10/02/23 18:39 10/02/23 19:42 Temperature 97.5 F Pulse Rate 97 94 Respiratory Rate 18 25 H Blood Pressure 109/58 L Pulse Oximetry 95 94 Oxygen Delivery Method Nasal Cannula Nasal Cannula Oxygen Flow Rate 2 2 BMI result Body Mass Index 64.6 Gen: NAD, AOx3 HEENT: NCAT, EOMI, normal conjunctiva CV: diminished heart sounds, RRR Pulm: CTAB, diminished lung sounds GI: Soft, NTND, no rebound, guarding or rigidity, no bilateral CVA tenderness Neuro: Grossly non focal Medications Administered Discontinued Medications Generic Name Dose Route Start Last Admin Trade Name Nany PRN Reason Stop Dose Admin Furosemide 40 mg 10/02/23 18:33 10/02/23 18:54 Furosemide 40 Mg/4 Ml Vial IVPUSH 10/02/23 18:34 40 mg ONCE ONE Administration Protocol Medical Decision Making Medical Decision Making MDM Narrative: Differential diagnosis includes, but is not limited to stress incontinence, deconditioning. Considered urinary tract infection, patient states she has no dysuria or urinary frequency/urgency. Further, she states no fevers, chills or flank pain to suggest ascending urinary tract infection such as pyelonephritis. For these reasons, this is a very low clinical suspicion. On reexamination at 1814 - patient found to have hypoxia to 85% on room air. She states no dyspnea or chest pain. However, she is certainly tachypneic at this time. Given this new finding, will expand work up to include screening labs including BNP, EKG and chest x-ray. Differential diagnosis is broadened at this time to include exacerbation of her congestive heart failure, pneumothorax. Anticipate admission for acute hypoxic respiratory failure. Further history reveals that patient has not been taking her Lasix for the last 8 days and reports taking an herbal supplement called fluid away. Labs are notable for stable anemia with hemoglobin of 11.7 (previous 11.5), BUN 93 (previous 58), Cr 1.97 (previous 1.19), BNP 1192. I reviewed and interpreted EKG, which demonstrates normal sinus rhythm 97 beats per minute, MT 192, QRS 110, QTC 467, no ST/T-wave changes, no STEMI (there are no diagnostic ischemic changes when compared to previous EKG May 31, 2023). Patient states that she has no chest pain and really does not even complain of dyspnea. For these reasons, I have very low clinical suspicion for ACS and otherwise EKG demonstrates no ischemic changes. I reviewed and interpreted her chest x-ray which demonstrates pulmonary edema and otherwise demonstrates no focal consolidation or pneumothorax. Given the aforementioned constellation of findings, history of a high clinical suspicion for exacerbation of her congestive heart failure. Patient is provided 40 mg IV Lasix. I discussed case and management with admitting hospitalist. Patient is admitted to hospitalist service under care of Dr. Mackenzie for further workup and management. Admission/Observation Consideration of admission/observation: Escalation of care including admission/observation considered Consult Healthcare Provider Management of the patient was discussed with: Hospitalist Lab Data MDM Lab Attestation statement: I reviewed the patient's lab results. 10/02/23 18:45 10/02/23 18:45 Labs: Lab Results 10/02/23 Range/Units 18:45 WBC 7.6 (4.8-10.8) X10*3/uL RBC 5.34 (4.20-5.50) X10*6/uL Hgb 11.7 L (12.0-16.0) g/dl Hct 39.2 (37.0-47.0) % MCV 73.4 L (80.0-98.0) fL MCH 21.9 L (27.0-33.0) pg MCHC 29.8 L (31.0-35.0) g/dl RDW 21.5 H (11.0-16.0) % Plt Count 367 D (160-400) X10*3/uL MPV 10.0 (9.4-12.3) fL Immature Gran % (Auto) 1.1 H (0.0-0.4) % Neut % (Auto) 77.0 H (45-73) % Lymph % (Auto) 11.7 L (20-40) % [place] % (Auto) 9.1 (2-11) % Eos % (Auto) 0.4 (0-4) % Baso % (Auto) 0.7 (0-2) % Lymph # (Auto) 0.9 L (1.2-4.9) X10*3/uL [place] # (Auto) 0.7 (0.1-1.2) X10*3/uL Eos # (Auto) 0.0 (0.0-0.4) X10*3/uL Baso # (Auto) 0.1 (0.0-0.2) X10*3/uL Abs Immat Gran (auto) 0.08 H (0.00-0.03) X10*3/uL Absolute Neuts (auto) 5.9 (2.0-8.3) x10*3/uL Absolute Nucleated RBC 0.030 H (0.0-0.012) X10*3/uL Nucleated RBC % (auto) 0.4 H (0.0-0.2) /100WBC Sodium 135 (135-145) mmol/L Potassium 4.7 D (3.3-5.1) mmol/L Chloride 94 L (96-108) mmol/L Carbon Dioxide 28 (22-29) mmol/L Anion Gap 18 (12-20) BUN 93 H (9-16) mg/dL Creatinine 1.97 H (0.5-1.4) mg/dL Estim Creat Clear Calc 45.3 Estimated GFR 25 Random Glucose 196 H (60-115) mg/dL Calcium 9.4 (8.4-10.2) mg/dL B-Natriuretic Peptide 1192 H (<100) pg/mL Independent Interpretation I performed an independent interpretation of an: EKG and Plain X-Ray Interpretation: EKG demonstrates normal sinus rhythm 97 beats per minute, MT 192, QRS 110, QTC 467, no ST/T-wave changes, no STEMI (there are no diagnostic ischemic changes when compared to previous EKG May 31, 2023). I reviewed and interpreted her chest x-ray which demonstrates pulmonary edema and otherwise demonstrates no focal consolidation or pneumothorax. Radiology Impression Discussion of test interpretation with radiology: I have reviewed the radiologist's reading. Discharge Plan Discharge Clinical Impression: Hypoxia, Acute kidney injury, Elevated brain natriuretic peptide (BNP) level, Acute exacerbation of CHF (congestive heart failure) Patient Disposition: Admitted As Inpatient Print Language: Cypriot
[2023-10-02 18:11] VITALS: BP 120/56; PULSE 100; RESP 22; TEMP 36.6; O2SAT 89
--- NOTE | 2023-10-02 18:13 | PC.NURSE ---
pt took a few steps with walker - very unsteady. Pt had a hard time getting back into bed. pt satts dipped to low 80s with ambulation. At rest. Saturation jumped back up to 88%. MD aware and pt placed on 2l O2 pt says that O2 in the 80s is her baseline and that she does not use oxygen. no COPD
--- NOTE | 2023-10-02 18:14 | ECG_ITS ---
Test Reason : HYPOXIA Blood Pressure : / mmHG Vent. Rate : 097 BPM Atrial Rate : 097 BPM P-R Int : 192 ms QRS Dur : 110 ms QT Int : 368 ms P-R-T Axes : 053 239 060 degrees QTc Int : 467 ms Normal sinus rhythm Right superior axis deviation Pulmonary disease pattern Incomplete right bundle branch block Right ventricular hypertrophy Septal infarct (cited on or before 31-MAY-2023) Abnormal ECG When compared with ECG of 31-MAY-2023 14:02, QRS voltage has decreased Questionable change in initial forces of Septal leads Referred By: Larry Osborne Electronically Signed By:KAELYN BOWERS MD
[2023-10-02 18:15] VITALS: PULSE 105; O2SAT 84
[2023-10-02 18:39] VITALS: PULSE 97; RESP 18; O2SAT 95
[2023-10-02 18:53] LABS: MANUAL DIFF FLAG NO
[2023-10-02] MEDS: Furosemide 40 MG/4 ML VIAL IVPUSH (18:54)
[2023-10-02 19:14] LABS: Anion Gap 18 (12-20); Blood Urea Nitrogen 93 mg/dL (9-16); Calcium 9.4 mg/dL (8.4-10.2); Carbon Dioxide 28 mmol/L (22-29); Chloride 94 mmol/L (96-108); Creatinine Clr Calc Pharmacy 45.3; Estimated Glomerular Filt Rate 25; Glucose Random 196 mg/dL (60-115); Potassium 4.7 mmol/L (3.3-5.1); Sodium 135 mmol/L (135-145)
--- NOTE | 2023-10-02 19:18 | PC.NURSE ---
Assumed care of pt. pt lying on stretcher, upright,m denies acute concerns at this time, supplemental O2 in place, serrano in place. Continuing plan of care.
[2023-10-02 19:19] LABS: B Type Natriuretic Peptide 1192 pg/mL (<100)
[2023-10-02 19:36] LABS: Basophils Absolute Auto 0.1 X10*3/uL (0.0-0.2); Basophils Percent Auto 0.7 % (0-2); Eosinophils Percent Auto 0.4 % (0-4); Hematocrit 39.2 % (37.0-47.0); Hemoglobin 11.7 g/dl (12.0-16.0); Imm Gran Abs Auto 0.08 X10*3/uL (0.00-0.03); Imm Gran Pct Auto 1.1 % (0.0-0.4); Lymphocytes Absolute Auto 0.9 X10*3/uL (1.2-4.9); Lymphocytes Percent Auto 11.7 % (20-40); Mean Corpuscular HGB Conc 29.8 g/dl (31.0-35.0); Mean Corpuscular Hemoglobin 21.9 pg (27.0-33.0); Mean Corpuscular Volume 73.4 fL (80.0-98.0); Monocytes Absolute Auto 0.7 X10*3/uL (0.1-1.2); Monocytes Percent Auto 9.1 % (2-11); NRBC Pct Auto 0.4 /100WBC (0.0-0.2); Neutrophils Absolute Auto 5.9 x10*3/uL (2.0-8.3); Platelet Count 367 X10*3/uL (160-400); Red Blood Count 5.34 X10*6/uL (4.20-5.50); Red Cell Distribution Width 21.5 % (11.0-16.0); White Blood Count 7.6 X10*3/uL (4.8-10.8)
[2023-10-02 19:42] VITALS: BP 109/58; PULSE 94; RESP 25; TEMP 36.4; O2SAT 94
[2023-10-02 20:51] LABS: Troponin-I High Sensitivity 46.2 ng/L (<3.5-17.0)
--- NOTE | 2023-10-02 20:51 | PHA.MEDREC ---
Pharmacy Consult ? Medication Reconciliation Pharmacy has completed the medication reconciliation.
--- NOTE | 2023-10-02 21:25 | P.HPHOSP_ITS ---
History of Present Illness Date of Service: 10/02/23 Attending physician on admission: Misha Gomez Chief Complaint: Incontinence Pt is a 68-year-old female with a PMH significant for?peripheral edema, HFrEF (LVEF 40-45%), prn home O2, obesity class III, and hx of appendectomy and cholecystectomy who initially presented to the ED for Lozano catheter placement. Patient reports she has lost bladder control approximately 2 weeks ago. Started out as occasional incontinence, but soon turned into constant dripping. Patient states she ?can not hold anything in?. She initially called her PCP who placed an order for Lozano insertion by [facility]. Visiting nurse attempted to place Lozano x3 times at home but failed. She then called her PCP back who suggested she come to the ED for Lozano placement. While in the ED patient was noted to be hypoxic as low as 84% on RA and have an elevated BNP of 1192, greater than previous. Patient was previously admitted to the hospital on 05/31-06/07/2023 for multiple conditions, including acute hypoxic respiratory failure in the setting of influenza infection, superimposed pneumonia, and new onset CHF. Patient was discharged on furosemide 40 mg daily which she initially reports taking. However, patient is seen developed constipation which she attributed to the furosemide and so stopped taking her home diuretics a few weeks ago. In fact, patient is not on any home prescriptions at this time but instead takes multiple herbal supplements, including ?Fluid Away . Patient has been experiencing some increased difficulty breathing, which she attributes to eating a gluten based pizza crust that her ordered. Denies any significant SOB or increase in lower leg edema, patient says she believes she has gained some weight, but denies any abdominal swelling. No chest pain/pressure, palpitations. No fever, chills, nausea, vomiting, abdominal pain. In the ED pt was tachycardic up to 105, tachypneic up to 25, was soft BP as low as 109/58, and hypoxic as low as 84% on RA. Labs were significant for BUN 93, creatinine 1.97, initial troponin 46.2, and BNP 1192. No leukocytosis. Stable H&H. CXR showed central vascular prominence and prominent cardiac silhouette, similar to prior with possible mild pulmonary edema. EKG demonstrated normal sinus rhythm with right ventricular hypertrophy and possible septal infarct, but no evidence of significant ST elevations or depressions. Pt was treated with Lasix 40 mg IV. Pt will be admitted to the hospital for treatment further evaluation of acute on chronic hypoxic respiratory failure in setting of acute CHF exacerbation. Review of Systems 2 Review of Systems: Incontinence Weight gain Wheezing Constipation, now resolved Chronic SOB, at baseline Chronic lower leg edema, at baseline Chronic abdominal swelling, at baseline Denies chest pain/pressure, palpitations No fever, chills, nausea, vomiting, abdominal pain PMFSH Medical History CAD (coronary artery disease) Degenerative disc disease, lumbar Scoliosis Surgical History History of cholecystectomy Social History Household Members: Spouse Housing: House Do you presently have visiting nurse or other home services: No Patient Tobacco Use Status: Former Tobacco user Smoked in Last 30 Days: No Use of substances other than those prescribed or required for medical reasons: No Advance Directives: Yes Advance Directives Information Provided: No Advance Directives on File: No service: No Current occupational status: unemployed Meds Allergies Allergy/AdvReac Type Severity Reaction Status Date / Time Penicillins Allergy Anaphylaxis Verified 10/02/23 15:19 Sulfa (Sulfonamide Allergy Anaphylaxis Verified 10/02/23 15:19 Antibiotics) Home Medications ?Medication ?Instructions ?Recorded ?Confirmed ?Last Taken ?Type Bacillus coagulans-inulin 1 1 cap PO DAILY 05/31/23 10/02/23 05/30/23 History billion cell-250 mg capsule ashwagandha extract 1 cap PO DAILY 05/31/23 10/02/23 05/30/23 History berberine-herbal comb no.18 capsule 1 cap PO DAILY 05/31/23 10/02/23 05/30/23 History krill oil 1 cap PO DAILY 05/31/23 10/02/23 05/30/23 History multivitamin with minerals 1 tab PO DAILY 05/31/23 10/02/23 05/30/23 History qejmgduda-ogigcmd-upjfkyswl capsule 1 cap PO DAILY 05/31/23 10/02/23 05/30/23 History vit C-vit D-tfpwrt-vvsazokz capsule 1 cap PO DAILY 05/31/23 10/02/23 05/30/23 History vitamin D3 25 mcg (1,000 unit)-vit 1 tab PO DAILY 05/31/23 10/02/23 05/30/23 History K2 90 mcg disintegrating tablet (D3 Plus K2 Dots) xjqtufwg-skmowk-yfqsb extract 5 1 cap PO DAILY 10/02/23 10/02/23 Unknown History mg-6 mg-150 mg capsule (Fruit and Vegetable Daily) Physical Exam 2 Vital Signs and Narrative: Vital Signs: Last Vital Signs Temp 97.5 F 10/02/23 19:42 Pulse 94 10/02/23 19:42 Resp 25 H 10/02/23 19:42 BP 109/58 L 10/02/23 19:42 Pulse Ox 94 10/02/23 19:42 O2 Del Method Nasal Cannula 10/02/23 19:42 O2 Flow Rate 2 10/02/23 19:42 BMI result Body Mass Index 64.6 Constitutional: Alert, in no acute distress. Mental Status: Oriented to person, place and time. Eyes: Pupils are equal, round, and reactive to light. Ear, Nose, and Throat: Oropharynx clear, mucous membranes moist. Ears and nose without deformities. Trachea midline. Respiratory: Mild diffuse expiratory wheezing bilaterally. Cardiovascular: S1, S2, tachy. Gastrointestinal: Abdomen firm, obese, non-tender. Normal bowel sounds. Neurologic: Cranial nerves II-XII are grossly intact bilaterally. No focal neurological deficits. Moves all extremities spontaneously. Skin: Warm, dry. Extremities: 2+ bilateral pitting edema. Chronic venous stasis dermatitis changes to lower legs. Psychiatric: Normal mood and affect. Results Labs 10/02/23 18:45 10/02/23 18:45 Labs: Laboratory Results - last 24 hr 10/02/23 10/02/23 18:45 20:24 MCV 73.4 L MCH 21.9 L MCHC 29.8 L RDW 21.5 H Plt Count 367 D MPV 10.0 Immature Gran % (Auto) 1.1 H Neut % (Auto) 77.0 H Lymph % (Auto) 11.7 L [place] % (Auto) 9.1 Eos % (Auto) 0.4 Baso % (Auto) 0.7 Lymph # (Auto) 0.9 L [place] # (Auto) 0.7 Eos # (Auto) 0.0 Baso # (Auto) 0.1 Abs Immat Gran (auto) 0.08 H Absolute Neuts (auto) 5.9 Absolute Nucleated RBC 0.030 H Nucleated RBC % (auto) 0.4 H Anion Gap 18 Estim Creat Clear Calc 45.3 Estimated GFR 25 Random Glucose 196 H Calcium 9.4 Troponin I High Sens 46.2 H B-Natriuretic Peptide 1192 H Imaging Radiologist's Impressions: Impressions Chest X-Ray 10/02/23 18:28 IMPRESSION: Central vascular prominence and prominent cardiac silhouette similar to the prior study. I cannot exclude a component of mild edema in this setting. Assessment and Plan (1) Acute exacerbation of CHF (congestive heart failure): Status: Acute Plan Pt is a 68-year-old female with a PMH significant for?peripheral edema, HFrEF (LVEF 40-45%), prn home O2, obesity class III, and hx of appendectomy and cholecystectomy who initially presented to the ED for Lozano catheter placement. While in the ED patient was noted to be hypoxic as low as 84% on RA and have an elevated BNP of 1192, greater than previous. Pt will be admitted to the hospital for treatment further evaluation of acute on chronic hypoxic respiratory failure in setting of acute CHF exacerbation. Acute hypoxic respiratory failure in the setting of acute HFrEF exacerbation Likely secondary to medication noncompliance; patient stopped taking home furosemide some weeks ago due to perceived side effect of constipation Patient satting as low as 84% on RA, CXR showing likely pulmonary edema, elevated BNP, bilateral LLE Furosemide 40 mg IV b.i.d. Follow lytes, MG, I/O Daily weights, low-salt diet Titrate supplemental O2 >92, wean as tolerated Admit to telemetry Urinary incontinence Patient experiencing severe urinary incontinence x2 weeks Had Lozano placed in the ED Unclear etiology Consider Neurology or OBGYN consult Obesity Class III Weight loss encouraged Full Code Attending:?Dr. Mackenzie DVT Prophylaxis: Lovenox Pt will require a hospitalization of at least two nights for treatment of acute hypoxic respiratory failure in the setting of acute CHF exacerbation due to medication noncompliance. Patient will require hospitalization for administration of IV diuretics, supplemental oxygen, as well as close monitoring of labs and cardiac function. Quality Stroke Does the patient have a stroke diagnosis?: No VTE Prior VTE?: No VTE Risk Level:: Medical - moderate - high VTE Device Contraindication: Treatment Not Indicated VTE Drug Contraindication: N/A - Med Ordered
[2023-10-02 22:57] VITALS: BP 120/51; PULSE 96; RESP 15; TEMP 36.4; O2SAT 96
[2023-10-02] MEDS: Enoxaparin Sodium 40 MG/0.4 ML SYRINGE SUBCUT (23:32)
[2023-10-03] VITALS (10 sets, daily range): BP systolic 115–135; BP diastolic 54–69; PULSE 87–96; RESP 13–22; TEMP 36.2–36.9; O2SAT 88–99; BMI 69.2
[2023-10-03] MEDS: 0.9 % Sodium Chloride Flush 3 ML SYRINGE IVFLUSH (01:29)
[2023-10-03 05:27] LABS: Anion Gap 17 (12-20); Blood Urea Nitrogen 90 mg/dL (9-16); Calcium 9.5 mg/dL (8.4-10.2); Carbon Dioxide 28 mmol/L (22-29); Chloride 94 mmol/L (96-108); Creatinine Clr Calc Pharmacy 50.5; Estimated Glomerular Filt Rate 28; Glucose Random 147 mg/dL (60-115); Magnesium 2.4 mg/dL (1.6-2.6); Potassium 4.3 mmol/L (3.3-5.1); Sodium 135 mmol/L (135-145)
[2023-10-03 05:42] LABS: Troponin-I High Sensitivity 55.4 ng/L (<3.5-17.0)
--- NOTE | 2023-10-03 07:12 | PC.NURSE ---
patient sitting up in chair, legs elevated. patient alert and oriented x3. VSS, respirations equal and unlabored, on 2l NC. VSS, skin dry and intact. patient has serrano 300 ml urine emptied
[2023-10-03] MEDS: Furosemide 40 MG/4 ML VIAL IVPUSH ×2 (09:22→17:27)
[2023-10-03] MEDS: Multivitamin TABLET 1 TAB PO (09:22)
--- NOTE | 2023-10-03 11:57 | HO.PM.IMPN ---
Subjective Subjective Date of Service: 10/03/23 Interval History: C/o dyspnea. Hypoxic to 88% on RA. Was not taking furosemide because she believed it was causing constipation. Review of Systems Review of Systems: Yes all other systems are reviewed and are negative Physical Exam Vital Signs: Vital Signs: Last Vital Signs Temp 97.4 F 10/03/23 07:08 Pulse 90 10/03/23 10:46 Resp 21 H 10/03/23 10:46 BP 127/69 10/03/23 08:28 Pulse Ox 88 L 10/03/23 10:46 O2 Del Method Nasal Cannula 10/03/23 10:46 O2 Flow Rate 2 10/03/23 10:46 BMI result Body Mass Index 64.6 Gen: in no acute distress HEENT: sclera anicteric, moist mucus membranes Neck: supple, JVD Lungs: diminished Heart: regular rate and rhythm, no murmurs Abd: soft, non-tender, non-distended, obese Ext: 2+ bilateral leg edema Skin: warm/well-perfused Neuro: alert and oriented x3, no focal findings Psych: appropriate affect Objective Data Active Medications Acetaminophen (Acetaminophen 325 Mg Tablet) 650 mg PO Q6H PRN PRN Reason: Fever, mild pain, or headache Albuterol/Ipratropium (Albuterol/Iprat 2.5/0.5mg 3 Ml Ampul.Neb) 3 ml INHALE RQ4H WHILE AWAKE PRN PRN Reason: Shortness of Breath/Wheezing Benzonatate (Benzonatate 100 Mg Capsule) 100 mg PO TID PRN PRN Reason: Cough Calcium Carbonate (Calcium Carbonate 750 Mg Tab.Chew) 750 mg PO Q6H PRN PRN Reason: Heartburn Enoxaparin Sodium (Enoxaparin Sodium 40 Mg/0.4 Ml Syringe) 40 mg SUBCUT Q24H [facility] Last Admin: 10/02/23 23:32 Dose: 40 mg Documented By: ALLEN Furosemide (Furosemide 40 Mg/4 Ml Vial) 40 mg IVPUSH BID@0900,1800 [facility]; Protocol Last Admin: 10/03/23 09:22 Dose: 40 mg Documented By: GERALD Magnesium Hydroxide (Milk Of Magnesia 30 Ml Oral.Susp) 30 ml PO DAILY PRN PRN Reason: Constipation Melatonin (Melatonin 3 Mg Tablet) 6 mg PO BEDTIME PRN PRN Reason: Insomnia Multivitamins/Vitamin C (Multivitamin Tablet) 1 tab PO DAILY [facility] Last Admin: 10/03/23 09:22 Dose: 1 tab Documented By: GERALD Ondansetron HCl (Ondansetron Hcl 4 Mg/2 Ml Vial) 4 mg IVPUSH Q8H PRN PRN Reason: Nausea and Vomiting Polyethylene Glycol (Polyethylene Glycol 3350 17 Gm Powd.Pack) 17 gm PO DAILY PRN PRN Reason: Constipation Sodium Chloride (0.9 % Sodium Chloride Flush 3 Ml Syringe) 3 ml IVFLUSH QSHIFT [facility] Last Admin: 10/03/23 07:31 Dose: Not Given Documented By: GERALD Non-Admin Reason: See Note Labs 10/02/23 18:45 10/03/23 04:46 Labs: Laboratory Results - last 24 hr 10/02/23 10/02/23 10/03/23 18:45 20:24 04:46 MCV 73.4 L MCH 21.9 L MCHC 29.8 L RDW 21.5 H Plt Count 367 D MPV 10.0 Immature Gran % (Auto) 1.1 H Neut % (Auto) 77.0 H Lymph % (Auto) 11.7 L [place] % (Auto) 9.1 Eos % (Auto) 0.4 Baso % (Auto) 0.7 Lymph # (Auto) 0.9 L [place] # (Auto) 0.7 Eos # (Auto) 0.0 Baso # (Auto) 0.1 Abs Immat Gran (auto) 0.08 H Absolute Neuts (auto) 5.9 Absolute Nucleated RBC 0.030 H Nucleated RBC % (auto) 0.4 H Anion Gap 18 17 Estim Creat Clear Calc 45.3 50.5 Estimated GFR 25 28 Random Glucose 196 H 147 H Calcium 9.4 9.5 Magnesium 2.4 Troponin I High Sens 46.2 H 55.4 H* B-Natriuretic Peptide 1192 H Impressions Chest X-Ray 10/02/23 18:28 IMPRESSION: Central vascular prominence and prominent cardiac silhouette similar to the prior study. I cannot exclude a component of mild edema in this setting. Assessment and Plan (1) Acute exacerbation of CHF (congestive heart failure): Status: Acute Plan d2 68yo F with HFrEF [LVEF 40% May 2023], obesity presenting with urinary incontinence and found to be hypoxic from CHF exacerbation acute/chronic HFrEF - low-sodium diet, monitor BNP/BMP/Mg + I/O [negative 1300 mL thus far] - continue IV furosemide - once euvolemic consider B-jessica; ARB once Cr improved. Cardiology consultation. JUAN C - suspect cardiorenal; monitor BMP with diuresis AHRF - wean O2 with diuresis; also sleep study given obesity constipation - bowel regimen urinary incontinence - Lozano placed. Send UA micro/culture. Voiding trial and if persists will consider Urology consultation. morbid obesity - diet/exercise counseling VTE ppx - LMWH dispo - TBD In my clinical judgment, the patient requires continued inpatient hospitalization for the following reasons: IV diuresis, hypoxia Total time managing care of this patient today: 40 minutes. Quality Stroke Does the patient have a stroke diagnosis?: No VTE Prior VTE?: No VTE Risk Level:: Medical - moderate - high VTE Device Contraindication: Treatment Not Indicated VTE Drug Contraindication: N/A - Med Ordered
[2023-10-03 14:22] LABS: Estimated Average Glucose 197 mg/dL; Hemoglobin A1c % 8.5 % (<6.0)
--- NOTE | 2023-10-03 15:00 | PC.NURSE ---
patient resting quietly in hospital bed, provided for more comfort. patient eating lunch sitting up, respirations equal and unlabored, skin dry and intact. patient VSS, respirations equal and unlabored.
[2023-10-03 17:01] LABS: Glucose, Whole Blood 179 mg/dL (60-115)
[2023-10-03] MEDS: Insulin Lispro 100 UNIT/ML 3 ML VIAL SUBCUT ×2 (17:27→21:17)
[2023-10-03] MEDS: Cyclobenzaprine HCl 5 MG TABLET PO (18:16)
[2023-10-03 20:22] LABS: Glucose, Whole Blood 180 mg/dL (60-115)
[2023-10-03] MEDS: Enoxaparin Sodium 40 MG/0.4 ML SYRINGE SUBCUT (21:17)
[2023-10-03] MEDS: Sennosides/Docusate Sodium TABLET 2 TAB PO (21:17)
--- NOTE | 2023-10-03 22:42 | PC.RT ---
Sleep study started at 2244; trialed on RA sats of 86 placed on 1L NC sat of 92
--- NOTE | 2023-10-03 23:07 | PC.RT ---
Sleep Study started at 2305; Pt on RA
[2023-10-04] VITALS (7 sets, daily range): BP systolic 107–147; BP diastolic 58–84; PULSE 90–99; RESP 18–20; TEMP 36.3–36.9; O2SAT 90–94; BMI 68.4
[2023-10-04] MEDS: 0.9 % Sodium Chloride Flush 3 ML SYRINGE IVFLUSH ×4 (01:05→20:37)
--- NOTE | 2023-10-04 05:48 | PC.RT ---
Found pt off sleep study; pt states they removed it roughly at 0430(Sleep Study End)
[2023-10-04] MEDS: Acetaminophen 325 MG TABLET 650 MG PO ×2 (06:05→20:36)
[2023-10-04 06:52] LABS: Anion Gap 16 (12-20); Blood Urea Nitrogen 93 mg/dL (9-16); Calcium 9.7 mg/dL (8.4-10.2); Carbon Dioxide 30 mmol/L (22-29); Chloride 94 mmol/L (96-108); Creatinine Clr Calc Pharmacy 53.4; Estimated Glomerular Filt Rate 29; Glucose Random 142 mg/dL (60-115); Magnesium 2.3 mg/dL (1.6-2.6); Potassium 5.1 mmol/L (3.3-5.1); Sodium 135 mmol/L (135-145)
[2023-10-04 07:01] LABS: B Type Natriuretic Peptide 1307 pg/mL (<100)
[2023-10-04 07:30] LABS: Glucose, Whole Blood 146 mg/dL (60-115)
[2023-10-04] MEDS: Sennosides/Docusate Sodium TABLET 2 TAB PO ×2 (08:41→20:37)
[2023-10-04] MEDS: Multivitamin TABLET 1 TAB PO (08:41)
[2023-10-04] MEDS: Furosemide 40 MG/4 ML VIAL IVPUSH (08:41)
--- NOTE | 2023-10-04 09:28 | MHC.CM.PN ---
IMM 10/04/23, EMR REVIEWED, PT W/CHF EXAC, CM MET W/PT WHO REPORTS SHE WOULD LIKE STR AT [facility] IT IS CLOSE TO HER HUSBANDS WORK ON [employer]. PT REPORTS SHE LIVES W/, USES A FWW AND HAS A CANE AT HOME, PT ALSO REPORTS SHE IS ACTIVE W/ENHABIT [facility] HOWEVER GOAL FOR DC IS STR. PT VERIFIES PCP/HCP ON FILE ARE CORRECT
[2023-10-04 11:24] LABS: Glucose, Whole Blood 179 mg/dL (60-115)
[2023-10-04 11:29] LABS: Appearance Urine Cloudy; Color Urine Yellow; Glucose Urine UA Negative (Negative); Leukocyte Esterase Urine Large (3+) (Negative); Nitrite Urine Negative (Negative); PH 5.5 (5.0-9.0); UMIC TRIGGER UACC YES; Urine Blood Large (3+) (Negative); Urine Ketones Negative (Negative); Urine Protein Trace mg/dL (Neg-Trace)
[2023-10-04 11:42] LABS: Bacteria Urine 4+ (None Seen); RBC Urine >20 /HPF (0-2); Squamous Epithelial Cell Urine 0-2 /HPF (0-2); UACC Culture Trigger YES; WBC Clumps Urine Present; WBC Urine >50 /HPF (0-5)
[2023-10-04] MEDS: Insulin Lispro 100 UNIT/ML 3 ML VIAL SUBCUT ×3 (11:59→20:37)
[2023-10-04] MEDS: Furosemide 200 MG in 0.9 % Sodium Chloride 80 ML IVCONT (12:00)
--- NOTE | 2023-10-04 13:16 | PM.CNCAR ---
History of Present Illness History of Present Illness Date of Service: 10/04/23 Requesting physician: River Sen Consult reason: congestive heart failure Chief complaint: CHF exacerbation Narrative: I was consulted to see Cory in cardiology consultation today for management of congestive heart failure. She is 68-year-old female with prior history of heart failure with LVEF of 40-45% predominantly right-sided heart failure, morbid obesity, chronic kidney disease on p.r.n. home oxygen with significant leg edema in the past. Schedule for cardiac catheterization by Dr. Dumont in the coming week. However patient says she stopped taking Lasix few weeks ago as she was constipated. She then continued to have leg edema but then was having a lot of uncontrolled urination. She therefore wanted a Lozano catheter, [facility] failed to place a Lozano catheter and a primary care physician advised her to come to the emergency room. In emergency room she was noted to have hypoxic respiratory failure was noted to be markedly fluid overloaded and was admitted for management of congestive heart failure. BNP significantly elevated compared to baseline in the 1100 range. She was given IV Lasix and has over the last 2 days negative balance of 4 L but remains significantly fluid overloaded. She was admitted with also elevated creatinine which is most consistent with cardiorenal syndrome. Creatinine is improved with diuresis. She denies any chest pain. Plan to start on IV Lasix drip due to significant fluid overload still present. Review of Systems Constitutional: Constitutional: Reports no additional constitutional complaints Eyes: Eyes: Reports no additional eye complaints Cardiovascular: Cardiovascular: Reports Abdominal Distension, Denies chest pain, Reports leg edema, Denies lightheadedness, Denies Loss of Consciousness, Denies palpitations and Reports dyspnea on exertion Respiratory: Respiratory: Reports no additional respiratory complaints and Reports dyspnea on exertion Gastrointestinal: Gastrointestinal: Reports no additional gastrointestinal complaints Genitourinary: Genitourinary: Reports no additional female genitourinary complaints Musculoskeletal: Musculoskeletal: Reports no additional musculoskeletal complaints Neurologic: Reports system reviewed and no additional complaints, except as documented Endocrine: Endocrine: Denies palpitations PMFSH Past Medical History Medical History Edema, peripheral CAD (coronary artery disease) Degenerative disc disease, lumbar Scoliosis Surgical History Surgical History History of cholecystectomy Social History Social History Household Members: Spouse Housing: House Do you presently have visiting nurse or other home services: Yes (vna) Patient Tobacco Use Status: Former Tobacco user service: No Current occupational status: unemployed Meds Allergies Allergy/AdvReac Type Severity Reaction Status Date / Time Penicillins Allergy Anaphylaxis Verified 10/02/23 15:19 Sulfa (Sulfonamide Allergy Anaphylaxis Verified 10/02/23 15:19 Antibiotics) Active Medications: Current Medications Acetaminophen (Acetaminophen 325 Mg Tablet) 650 mg PO Q6H PRN PRN Reason: Fever, mild pain, or headache Last Admin: 10/04/23 06:05 Dose: 650 mg Albuterol/Ipratropium (Albuterol/Iprat 2.5/0.5mg 3 Ml Ampul.Neb) 3 ml INHALE RQ4H WHILE AWAKE PRN PRN Reason: Shortness of Breath/Wheezing Benzonatate (Benzonatate 100 Mg Capsule) 100 mg PO TID PRN PRN Reason: Cough Calcium Carbonate (Calcium Carbonate 750 Mg Tab.Chew) 750 mg PO Q6H PRN PRN Reason: Heartburn Enoxaparin Sodium (Enoxaparin Sodium 40 Mg/0.4 Ml Syringe) 40 mg SUBCUT Q24H [facility] Last Admin: 10/03/23 21:17 Dose: 40 mg Glucose (Glucose Gel 15 Gm Gel..Gram.) 15 gm PO Q15M PRN; Protocol PRN Reason: per Hypoglycemia Standing Ord. Dextrose (D10) 250 mls @ 750 mls/hr IV Q15M PRN; Protocol PRN Reason: per Hypoglycemia Standing Ord. Furosemide 200 mg/ Sodium (Chloride) 100 mls @ 2.5 mls/hr IVCONT .Q24H [facility] Last Admin: 10/04/23 12:00 Dose: 5 mg/hr, 2.5 mls/hr Insulin Human Lispro (Insulin Lispro 100 Unit/Ml 3 Ml Vial) 0 unit SUBCUT QIDACHS [facility]; Protocol Last Admin: 10/04/23 11:59 Dose: 2 unit Magnesium Hydroxide (Milk Of Magnesia 30 Ml Oral.Susp) 30 ml PO DAILY PRN PRN Reason: Constipation Melatonin (Melatonin 3 Mg Tablet) 6 mg PO BEDTIME PRN PRN Reason: Insomnia Multivitamins/Vitamin C (Multivitamin Tablet) 1 tab PO DAILY [facility] Last Admin: 10/04/23 08:41 Dose: 1 tab Ondansetron HCl (Ondansetron Hcl 4 Mg/2 Ml Vial) 4 mg IVPUSH Q8H PRN PRN Reason: Nausea and Vomiting Polyethylene Glycol (Polyethylene Glycol 3350 17 Gm Powd.Pack) 17 gm PO DAILY PRN PRN Reason: Constipation Senna/Docusate Sodium (Sennosides/Docusate Sodium Tablet) 2 tab PO BID [facility] Last Admin: 10/04/23 08:41 Dose: 2 tab Sodium Chloride (0.9 % Sodium Chloride Flush 3 Ml Syringe) 3 ml IVFLUSH QSHIFT [facility] Last Admin: 10/04/23 08:41 Dose: 3 ml Home Medications ?Medication ?Instructions ?Recorded ?Confirmed ?Last Taken ?Type Bacillus coagulans-inulin 1 1 cap PO DAILY 05/31/23 10/02/23 05/30/23 History billion cell-250 mg capsule ashwagandha extract 1 cap PO DAILY 05/31/23 10/02/23 05/30/23 History berberine-herbal comb no.18 capsule 1 cap PO DAILY 05/31/23 10/02/23 05/30/23 History krill oil 1 cap PO DAILY 05/31/23 10/02/23 05/30/23 History multivitamin with minerals 1 tab PO DAILY 05/31/23 10/02/23 05/30/23 History aiuzsffcc-czhsngo-zoqfjkxij capsule 1 cap PO DAILY 05/31/23 10/02/23 05/30/23 History vit C-vit J-mgwpvx-zqlwoyrw capsule 1 cap PO DAILY 05/31/23 10/02/23 05/30/23 History vitamin D3 25 mcg (1,000 unit)-vit 1 tab PO DAILY 05/31/23 10/02/23 05/30/23 History K2 90 mcg disintegrating tablet (D3 Plus K2 Dots) ymbudazo-wgyhdh-sqpny extract 5 1 cap PO DAILY 10/02/23 10/02/23 Unknown History mg-6 mg-150 mg capsule (Fruit and Vegetable Daily) Physical Exam Vital Signs: Vital Signs: Last Vital Signs Temp 97.9 F 10/04/23 11:17 Pulse 92 10/04/23 11:17 Resp 20 10/04/23 11:17 BP 122/62 10/04/23 12:00 Pulse Ox 93 10/04/23 11:17 O2 Del Method Nasal Cannula 10/04/23 11:17 O2 Flow Rate 2 10/04/23 11:17 BMI result Body Mass Index 68.4 Objective Labs and Meds 10/02/23 18:45 10/04/23 06:21 Lab results: Laboratory Results - last 24 hr 10/02/23 10/03/23 10/03/23 18:45 16:57 20:19 Sodium Potassium Chloride Carbon Dioxide Anion Gap BUN Creatinine Estim Creat Clear Calc Estimated GFR POC Glucose 179 H 180 H Random Glucose Estimat Average Glucose 197 Hemoglobin A1c % 8.5 H Calcium Magnesium B-Natriuretic Peptide Urine Color Urine Appearance Urine pH Ur Specific [place] Urine Protein Urine Glucose (UA) Urine Ketones Urine Blood Urine Nitrite Ur Leukocyte Esterase Urine RBC Urine WBC Urine WBC Clumps Ur Squamous Epith Cells Urine Bacteria Hyaline Casts 10/04/23 10/04/23 10/04/23 06:21 07:26 11:00 Sodium 135 Potassium 5.1 Chloride 94 L Carbon Dioxide 30 H Anion Gap 16 BUN 93 H Creatinine 1.74 H Estim Creat Clear Calc 53.4 Estimated GFR 29 POC Glucose 146 H Random Glucose 142 H Estimat Average Glucose Hemoglobin A1c % Calcium 9.7 Magnesium 2.3 B-Natriuretic Peptide 1307 H Urine Color Yellow Urine Appearance Cloudy Urine pH 5.5 Ur Specific [place] 1.010 Urine Protein Trace Urine Glucose (UA) Negative Urine Ketones Negative Urine Blood Large (3+) H Urine Nitrite Negative Ur Leukocyte Esterase Large (3+) H Urine RBC >20 H Urine WBC >50 H Urine WBC Clumps Present Ur Squamous Epith Cells 0-2 Urine Bacteria 4+ Hyaline Casts 6-10 10/04/23 11:19 Sodium Potassium Chloride Carbon Dioxide Anion Gap BUN Creatinine Estim Creat Clear Calc Estimated GFR POC Glucose 179 H Random Glucose Estimat Average Glucose Hemoglobin A1c % Calcium Magnesium B-Natriuretic Peptide Urine Color Urine Appearance Urine pH Ur Specific [place] Urine Protein Urine Glucose (UA) Urine Ketones Urine Blood Urine Nitrite Ur Leukocyte Esterase Urine RBC Urine WBC Urine WBC Clumps Ur Squamous Epith Cells Urine Bacteria Hyaline Casts Assessment and Plan (1) Acute exacerbation of CHF (congestive heart failure): Status: Acute Patient presents with acute congestive heart failure exacerbation predominantly right-sided heart failure with marked fluid overload with evidence of cardiorenal syndrome most likely due to renal venous congestion and capsular edema. Patient remains fluid overload despite 4 L of negative balance. Agree with IV Lasix drip. Can use p.r.n. metolazone. Continue strict intake and output chart. Continue monitor renal function as well as electrolytes. Consider use of Jardiance 10 mg. Will hold off on spironolactone therapy given her elevated creatinine. Once creatinine improves can consider starting spironolactone therapy. Also consider use of beta-jessica therapy for her LV systolic dysfunction with neurohormonal modulation once more compensated. Patient says she has side effects to various medication not sure whether she will continue to use medications as before. Ischemic workup can be pursued once she is stable and will consider right and left heart catheterization as outpatient. A benefit from CardioMEMS device given difficulty in assessing her fluid status Will follow with you Procedures Date of Service Date of Service: 10/04/23
--- NOTE | 2023-10-04 14:22 | HO.PM.IMPN ---
Subjective Subjective Date of Service: 10/04/23 Interval History: Still quite swollen and dyspneic despite being negative 4L. C/o urine leaking around Lozano Review of Systems Review of Systems: Yes all other systems are reviewed and are negative Physical Exam Vital Signs: Vital Signs: Last Vital Signs Temp 97.9 F 10/04/23 11:17 Pulse 92 10/04/23 11:17 Resp 20 10/04/23 11:17 BP 122/62 10/04/23 12:00 Pulse Ox 93 10/04/23 11:17 O2 Del Method Nasal Cannula 10/04/23 11:17 O2 Flow Rate 2 10/04/23 11:17 BMI result Body Mass Index 68.4 Gen: in no acute distress HEENT: sclera anicteric, moist mucus membranes Neck: supple Lungs: diminished Heart: regular rate and rhythm, no murmurs Abd: soft, non-tender, non-distended, obese Ext: 3+ bilateral leg edema Skin: warm/well-perfused Neuro: alert and oriented x3, no focal findings Psych: appropriate affect Objective Data Active Medications Acetaminophen (Acetaminophen 325 Mg Tablet) 650 mg PO Q6H PRN PRN Reason: Fever, mild pain, or headache Last Admin: 10/04/23 06:05 Dose: 650 mg Documented By: JOSE Albuterol/Ipratropium (Albuterol/Iprat 2.5/0.5mg 3 Ml Ampul.Neb) 3 ml INHALE RQ4H WHILE AWAKE PRN PRN Reason: Shortness of Breath/Wheezing Benzonatate (Benzonatate 100 Mg Capsule) 100 mg PO TID PRN PRN Reason: Cough Calcium Carbonate (Calcium Carbonate 750 Mg Tab.Chew) 750 mg PO Q6H PRN PRN Reason: Heartburn Enoxaparin Sodium (Enoxaparin Sodium 40 Mg/0.4 Ml Syringe) 40 mg SUBCUT Q24H [facility] Last Admin: 10/03/23 21:17 Dose: 40 mg Documented By: MARLA Glucose (Glucose Gel 15 Gm Gel..Gram.) 15 gm PO Q15M PRN; Protocol PRN Reason: per Hypoglycemia Standing Ord. Dextrose (D10) 250 mls @ 750 mls/hr IV Q15M PRN; Protocol PRN Reason: per Hypoglycemia Standing Ord. Furosemide 200 mg/ Sodium (Chloride) 100 mls @ 2.5 mls/hr IVCONT .Q24H [facility] Last Admin: 10/04/23 12:00 Dose: 5 mg/hr, 2.5 mls/hr Documented By: GONZALO Insulin Human Lispro (Insulin Lispro 100 Unit/Ml 3 Ml Vial) 0 unit SUBCUT QIDACHS [facility]; Protocol Last Admin: 10/04/23 11:59 Dose: 2 unit Documented By: GONZALO Magnesium Hydroxide (Milk Of Magnesia 30 Ml Oral.Susp) 30 ml PO DAILY PRN PRN Reason: Constipation Melatonin (Melatonin 3 Mg Tablet) 6 mg PO BEDTIME PRN PRN Reason: Insomnia Multivitamins/Vitamin C (Multivitamin Tablet) 1 tab PO DAILY [facility] Last Admin: 10/04/23 08:41 Dose: 1 tab Documented By: GONZALO Ondansetron HCl (Ondansetron Hcl 4 Mg/2 Ml Vial) 4 mg IVPUSH Q8H PRN PRN Reason: Nausea and Vomiting Polyethylene Glycol (Polyethylene Glycol 3350 17 Gm Powd.Pack) 17 gm PO DAILY PRN PRN Reason: Constipation Senna/Docusate Sodium (Sennosides/Docusate Sodium Tablet) 2 tab PO BID [facility] Last Admin: 10/04/23 08:41 Dose: 2 tab Documented By: GONZALO Sodium Chloride (0.9 % Sodium Chloride Flush 3 Ml Syringe) 3 ml IVFLUSH QSHIFT [facility] Last Admin: 10/04/23 08:41 Dose: 3 ml Documented By: GONZALO Labs 10/02/23 18:45 10/04/23 06:21 Labs: Laboratory Results - last 24 hr 10/02/23 10/03/23 10/03/23 18:45 16:57 20:19 Anion Gap Estim Creat Clear Calc Estimated GFR POC Glucose 179 H 180 H Random Glucose Estimat Average Glucose 197 Hemoglobin A1c % 8.5 H Calcium Magnesium B-Natriuretic Peptide Urine Color Urine Appearance Urine pH Ur Specific [place] Urine Protein Urine Glucose (UA) Urine Ketones Urine Blood Urine Nitrite Ur Leukocyte Esterase Urine RBC Urine WBC Urine WBC Clumps Ur Squamous Epith Cells Urine Bacteria Hyaline Casts 10/04/23 10/04/23 10/04/23 06:21 07:26 11:00 Anion Gap 16 Estim Creat Clear Calc 53.4 Estimated GFR 29 POC Glucose 146 H Random Glucose 142 H Estimat Average Glucose Hemoglobin A1c % Calcium 9.7 Magnesium 2.3 B-Natriuretic Peptide 1307 H Urine Color Yellow Urine Appearance Cloudy Urine pH 5.5 Ur Specific [place] 1.010 Urine Protein Trace Urine Glucose (UA) Negative Urine Ketones Negative Urine Blood Large (3+) H Urine Nitrite Negative Ur Leukocyte Esterase Large (3+) H Urine RBC >20 H Urine WBC >50 H Urine WBC Clumps Present Ur Squamous Epith Cells 0-2 Urine Bacteria 4+ Hyaline Casts 6-10 10/04/23 11:19 Anion Gap Estim Creat Clear Calc Estimated GFR POC Glucose 179 H Random Glucose Estimat Average Glucose Hemoglobin A1c % Calcium Magnesium B-Natriuretic Peptide Urine Color Urine Appearance Urine pH Ur Specific [place] Urine Protein Urine Glucose (UA) Urine Ketones Urine Blood Urine Nitrite Ur Leukocyte Esterase Urine RBC Urine WBC Urine WBC Clumps Ur Squamous Epith Cells Urine Bacteria Hyaline Casts Assessment and Plan (1) Acute exacerbation of CHF (congestive heart failure): Status: Acute Plan d3 68yo F with HFrEF [LVEF 40% May 2023], obesity presenting with urinary incontinence and found to be hypoxic from CHF exacerbation acute/chronic HFrEF - low-sodium diet, monitor BNP/BMP/Mg + I/O [negative 4.1L thus far]; change to IV furosemide gtt. Will give 1 dose metolazone. - once euvolemic consider B-jessica; ARB once Cr improved. Cardiology consulted, add Jardiance - pt scheduled for outpt cath with Dr Dumont 10/07; to consider CardioMEMS device JUAN C - likely cardiorenal; monitor BMP with diuresis [Cr 1.97->1.74] AHRF - wean O2 with diuresis; also sleep study given obesity constipation - bowel regimen urinary incontinence - Lozano placed. Send UA micro/culture. Urology consultation. morbid obesity - diet/exercise counseling DM2, A1c 8.5 - enoch dose lispro, Jardiance as above. Pt has not tolerated MTF in past. VTE ppx - LMWH dispo - PT consult In my clinical judgment, the patient requires continued inpatient hospitalization for the following reasons: IV diuresis, hypoxia Total time managing care of this patient today: 40 minutes. Quality Stroke Does the patient have a stroke diagnosis?: No VTE Prior VTE?: No VTE Risk Level:: Medical - moderate - high VTE Device Contraindication: Treatment Not Indicated VTE Drug Contraindication: N/A - Med Ordered
[2023-10-04] MEDS: metOLazone 2.5 MG TABLET PO (15:04)
[2023-10-04 16:28] LABS: Glucose, Whole Blood 168 mg/dL (60-115)
[2023-10-04] MEDS: polyethylene glycoL 3350 17 GM POWD.PACK PO (20:42)
[2023-10-04] MEDS: Enoxaparin Sodium 40 MG/0.4 ML SYRINGE SUBCUT (20:43)
[2023-10-04 20:50] LABS: Glucose, Whole Blood 167 mg/dL (60-115)
[2023-10-04] MEDS: oxyCODONE HCl Immed Release 5 MG TABLET PO (23:11)
[2023-10-04] MEDS: Melatonin 3 MG TABLET 6 MG PO (23:12)
[2023-10-05] VITALS: PULSE 89; RESP 20; TEMP 37; O2SAT 93
[2023-10-05 02:46] VITALS: BP 98/50
[2023-10-05] MEDS: oxyCODONE HCl Immed Release 5 MG TABLET PO ×3 (04:12→18:38)
[2023-10-05] MEDS: Acetaminophen 325 MG TABLET 650 MG PO ×2 (04:12→22:23)
[2023-10-05 06:00] VITALS: BMI 70.8
[2023-10-05 07:25] LABS: Anion Gap 17 (12-20); Blood Urea Nitrogen 91 mg/dL (9-16); Calcium 9.6 mg/dL (8.4-10.2); Carbon Dioxide 28 mmol/L (22-29); Chloride 93 mmol/L (96-108); Creatinine Clr Calc Pharmacy 59.5; Estimated Glomerular Filt Rate 32; Glucose Random 130 mg/dL (60-115); Magnesium 2.4 mg/dL (1.6-2.6); Potassium 4.5 mmol/L (3.3-5.1); Sodium 133 mmol/L (135-145)
[2023-10-05 07:35] VITALS: BP 128/53; PULSE 90; RESP 20; TEMP 36.3; O2SAT 94
[2023-10-05 07:42] LABS: Glucose, Whole Blood 131 mg/dL (60-115)
[2023-10-05 08:01] LABS: B Type Natriuretic Peptide 1542 pg/mL (<100)
[2023-10-05] MEDS: Empagliflozin 10 MG TABLET PO (08:05)
[2023-10-05] MEDS: Multivitamin TABLET 1 TAB PO (08:05)
[2023-10-05] MEDS: Sennosides/Docusate Sodium TABLET 2 TAB PO ×2 (08:05→22:11)
--- NOTE | 2023-10-05 11:10 | PM.UROCN ---
History of Present Illness Consult details Consult date: 10/05/23 Narrative: CC: Sudden onset stress incontinence 68-year-old female Obesity class 5 greater than BMI 60 Two weeks ago started with sudden onset stress incontinence - states this seemed to occur after resolution of episode of constipation Presented to hospital for Lozano catheter placement via emergency room after visiting nurse unable to place Lozano catheter. Found to have exacerbation of cardiac failure. Has reduced ejection fraction. Initial creatinine 2.0 suggestive of acute renal insufficiency in setting of acute on chronic exacerbation of heart failure Lozano catheter placed Lasix started Stress incontinence likely due to overflow Lozano catheter can remain to gravity drainage as long as output greater than 3000 cc per day Otherwise should have catheter cap placed to encourage ambulation Bladder should be emptied every 3 hours Start alpha-jessica tamsulosin to assist urination after catheter removed Recommend 1800 calorie per day protein slanted diet Will need outpatient insole stiffener assessment for prolapse Review of Systems Constitutional: Constitutional: Reports as per HPI and Reports no additional constitutional complaints Cardiovascular: Cardiovascular: Reports as per HPI and Reports no additional cardiovascular complaints Respiratory: Respiratory: Reports as per HPI and Reports no additional respiratory complaints Gastrointestinal: Gastrointestinal: Reports as per HPI and Reports no additional gastrointestinal complaints Genitourinary: Genitourinary: Reports as per HPI Musculoskeletal: Musculoskeletal: Reports no additional musculoskeletal complaints and Reports as per HPI Neurologic: Reports system reviewed and no additional complaints, except as documented and Reports as per HPI PMFSH Past Medical History Medical History Edema, peripheral CAD (coronary artery disease) Degenerative disc disease, lumbar Scoliosis Surgical History Surgical History History of cholecystectomy Social History Social History Household Members: Spouse Housing: House Do you presently have visiting nurse or other home services: Yes (vna) Patient Tobacco Use Status: Former Tobacco user service: No Current occupational status: unemployed Meds Allergies Allergy/AdvReac Type Severity Reaction Status Date / Time Penicillins Allergy Anaphylaxis Verified 10/02/23 15:19 Sulfa (Sulfonamide Allergy Anaphylaxis Verified 10/02/23 15:19 Antibiotics) Active Medications: Current Medications Acetaminophen (Acetaminophen 325 Mg Tablet) 650 mg PO Q6H PRN PRN Reason: Fever, mild pain, or headache Last Admin: 05/18/24 04:12 Dose: 650 mg Albuterol/Ipratropium (Albuterol/Iprat 2.5/0.5mg 3 Ml Ampul.Neb) 3 ml INHALE RQ4H WHILE AWAKE PRN PRN Reason: Shortness of Breath/Wheezing Benzonatate (Benzonatate 100 Mg Capsule) 100 mg PO TID PRN PRN Reason: Cough Calcium Carbonate (Calcium Carbonate 750 Mg Tab.Chew) 750 mg PO Q6H PRN PRN Reason: Heartburn Empagliflozin (Empagliflozin 10 Mg Tablet) 10 mg PO DAILY [facility] Last Admin: 10/05/23 08:05 Dose: 10 mg Enoxaparin Sodium (Enoxaparin Sodium 40 Mg/0.4 Ml Syringe) 40 mg SUBCUT Q24H [facility] Last Admin: 10/04/23 20:43 Dose: 40 mg Glucose (Glucose Gel 15 Gm Gel..Gram.) 15 gm PO Q15M PRN; Protocol PRN Reason: per Hypoglycemia Standing Ord. Dextrose (D10) 250 mls @ 750 mls/hr IV Q15M PRN; Protocol PRN Reason: per Hypoglycemia Standing Ord. Furosemide 200 mg/ Sodium (Chloride) 100 mls @ 2.5 mls/hr IVCONT .Q24H [facility] Last Admin: 10/04/23 12:00 Dose: 5 mg/hr, 2.5 mls/hr Insulin Human Lispro (Insulin Lispro 100 Unit/Ml 3 Ml Vial) 0 unit SUBCUT QIDACHS [facility]; Protocol Last Admin: 10/05/23 07:58 Dose: Not Given Magnesium Hydroxide (Milk Of Magnesia 30 Ml Oral.Susp) 30 ml PO DAILY PRN PRN Reason: Constipation Melatonin (Melatonin 3 Mg Tablet) 6 mg PO BEDTIME PRN PRN Reason: Insomnia Last Admin: 10/04/23 23:12 Dose: 6 mg Multivitamins/Vitamin C (Multivitamin Tablet) 1 tab PO DAILY [facility] Last Admin: 10/05/23 08:05 Dose: 1 tab Ondansetron HCl (Ondansetron Hcl 4 Mg/2 Ml Vial) 4 mg IVPUSH Q8H PRN PRN Reason: Nausea and Vomiting Oxycodone HCl (Oxycodone Hcl Immed Release 5 Mg Tablet) 5 mg PO Q4H PRN PRN Reason: Pain, Severe (Pain Scale 7-10) Last Admin: 10/05/23 04:12 Dose: 5 mg Polyethylene Glycol (Polyethylene Glycol 3350 17 Gm Powd.Pack) 17 gm PO DAILY PRN PRN Reason: Constipation Last Admin: 10/04/23 20:42 Dose: 17 gm Senna/Docusate Sodium (Sennosides/Docusate Sodium Tablet) 2 tab PO BID [facility] Last Admin: 10/05/23 08:05 Dose: 2 tab Sodium Chloride (0.9 % Sodium Chloride Flush 3 Ml Syringe) 3 ml IVFLUSH QSHIFT [facility] Last Admin: 10/05/23 08:05 Dose: Not Given Home Medications ?Medication ?Instructions ?Recorded ?Confirmed ?Last Taken ?Type Bacillus coagulans-inulin 1 1 cap PO DAILY 05/31/23 10/02/23 05/30/23 History billion cell-250 mg capsule ashwagandha extract 1 cap PO DAILY 05/31/23 10/02/23 05/30/23 History berberine-herbal comb no.18 capsule 1 cap PO DAILY 05/31/23 10/02/23 05/30/23 History krill oil 1 cap PO DAILY 05/31/23 10/02/23 05/30/23 History multivitamin with minerals 1 tab PO DAILY 05/31/23 10/02/23 05/30/23 History vjeapznrm-aoogklr-nljzouvmo capsule 1 cap PO DAILY 05/31/23 10/02/23 05/30/23 History vit C-vit P-xofojl-abperdda capsule 1 cap PO DAILY 05/31/23 10/02/23 05/30/23 History vitamin D3 25 mcg (1,000 unit)-vit 1 tab PO DAILY 05/31/23 10/02/23 05/30/23 History K2 90 mcg disintegrating tablet (D3 Plus K2 Dots) ksolqtaw-fwkfkw-vwrzb extract 5 1 cap PO DAILY 10/02/23 10/02/23 Unknown History mg-6 mg-150 mg capsule (Fruit and Vegetable Daily) Physical Exam Vital Signs: Vital Signs: Last Vital Signs Temp 97.4 F 10/05/23 07:35 Pulse 90 10/05/23 07:35 Resp 20 10/05/23 07:35 BP 128/53 L 10/05/23 07:35 Pulse Ox 94 10/05/23 07:35 O2 Del Method Nasal Cannula 10/05/23 07:35 O2 Flow Rate 2 10/05/23 07:35 BMI result Body Mass Index 70.8 Const: General: cooperative, healthy appearing, comfortable and no acute distress Orientation/consciousness: patient oriented x3 HEENT: Face and sinus: Yes normal facial exam Mouth: moist mucous membranes Neck: Neck: Yes normal visual inspection, Yes full ROM and Yes trachea midline Chest: Chest palpation & inspection: normal inspection of the chest Resp: Effort & Inspection: normal respiratory effort, able to speak in complete sentences and no respiratory distress GI: Inspection: Yes normal to inspection Back/Spine/Pelvis: Cervical Spine: normal cervical lordosis Thoracic/Lumbar Spine: thoracic and lumbar spine normal to inspection Skin: General skin exam: no rashes or lesions noted Neuro: General: patient oriented x3, tone normal and moves all extremities Extrem: General: Yes normal to inspection and Yes capillary refill normal Results Labs 10/02/23 18:45 10/05/23 06:37 Labs: Abnormal lab results 10/04/23 10/04/23 10/04/23 Range/Units 11:00 11:19 16:24 Sodium (135-145) mmol/L Chloride (96-108) mmol/L BUN (9-16) mg/dL Creatinine (0.5-1.4) mg/dL POC Glucose 179 H 168 H (60-115) mg/dL Random Glucose (60-115) mg/dL B-Natriuretic Peptide (<100) pg/mL Urine Blood Large (3+) H (Negative) Ur Leukocyte Esterase Large (3+) H (Negative) Urine RBC >20 H (0-2) /HPF Urine WBC >50 H (0-5) /HPF 10/04/23 10/05/23 10/05/23 Range/Units 20:23 06:37 07:37 Sodium 133 L (135-145) mmol/L Chloride 93 L (96-108) mmol/L BUN 91 H (9-16) mg/dL Creatinine 1.60 H (0.5-1.4) mg/dL POC Glucose 167 H 131 H (60-115) mg/dL Random Glucose 130 H (60-115) mg/dL B-Natriuretic Peptide 1542 H (<100) pg/mL Urine Blood (Negative) Ur Leukocyte Esterase (Negative) Urine RBC (0-2) /HPF Urine WBC (0-5) /HPF BMP 10/05/23 06:37 Sodium 133 L Potassium 4.5 Chloride 93 L Carbon Dioxide 28 BUN 91 H Creatinine 1.60 H Calcium 9.6 Urine 10/04/23 Range/Units 11:00 Urine Color Yellow Urine Appearance Cloudy Urine pH 5.5 (5.0-9.0) Ur Specific Brule 1.010 (1.005-1.025) Urine Protein Trace (Neg-Trace) mg/dL Urine Glucose (UA) Negative (Negative) mg/dL All other labs normal. Assessment and Plan (1) Overflow incontinence: Status: Acute Plan Tamsulosin CT bladder with emptying every 3 hours Encourage ambulation Voiding trial once Lasix IV completed Procedures Date of Service Date of Service: 10/05/23
[2023-10-05 11:19] VITALS: BP 117/56; PULSE 92; RESP 20; TEMP 36.3; O2SAT 95
[2023-10-05 11:27] LABS: Glucose, Whole Blood 191 mg/dL (60-115)
[2023-10-05] MEDS: Insulin Lispro 100 UNIT/ML 3 ML VIAL SUBCUT ×3 (11:40→22:11)
--- NOTE | 2023-10-05 13:29 | PM.PNCARD ---
Subjective Subjective Date of Service: 10/05/23 Principal diagnosis: Right heart failure Review of Systems Constitutional: Reports no additional constitutional complaints Eyes: Reports no additional eye complaints Cardiovascular: Reports Abdominal Distension and Reports leg edema Respiratory: Reports no additional respiratory complaints Physical Exam Vital Signs: Last Vital Signs Temp 97.4 F 10/05/23 11:19 Pulse 92 10/05/23 11:19 Resp 20 10/05/23 11:19 BP 117/56 L 10/05/23 11:19 Pulse Ox 95 10/05/23 11:19 O2 Del Method Nasal Cannula 10/05/23 11:19 O2 Flow Rate 3 10/05/23 11:19 BMI result Body Mass Index 70.8 Const General: cooperative and comfortable Neck Neck: Yes trachea midline, Yes supple and Yes other (Difficult to evaluate JVD) Resp Effort & Inspection: decreased respiratory effort Auscultation: diminished lung sounds Objective Labs and Meds 10/02/23 18:45 10/05/23 06:37 Lab results: Laboratory Results - last 24 hr 10/04/23 10/04/23 10/05/23 16:24 20:23 06:37 Hold Purple Top SEE NOTE Sodium 133 L Potassium 4.5 Chloride 93 L Carbon Dioxide 28 Anion Gap 17 BUN 91 H Creatinine 1.60 H Estim Creat Clear Calc 59.5 Estimated GFR 32 POC Glucose 168 H 167 H Random Glucose 130 H Calcium 9.6 Magnesium 2.4 B-Natriuretic Peptide 1542 H 10/05/23 10/05/23 07:37 11:21 Hold Purple Top Sodium Potassium Chloride Carbon Dioxide Anion Gap BUN Creatinine Estim Creat Clear Calc Estimated GFR POC Glucose 131 H 191 H Random Glucose Calcium Magnesium B-Natriuretic Peptide Progress Note: A&P Assessment and plan (1) Acute exacerbation of CHF (congestive heart failure): Status: Acute Assessment and Plan: Acute decompensated congestive heart failure predominantly marked right heart failure syndrome. Overall given body habitus difficult to evaluate central venous pressures. However she appears to be markedly fluid overloaded continue with IV diuresis with Lasix drip currently. Continue strict intake and output chart. Continue monitor renal function which is gradually downtrending consistent with cardiorenal syndrome and renal vascular congestion. Continue Jardiance therapy. Once blood pressure improves and renal function improves, can add renin angiotensin antagonist to her regimen. 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 Will follow with you Time Spent With Patient Time: Total time managing care of this patient today ____ minutes. Progress Note: Quality Stroke Does the patient have a stroke diagnosis?: No Procedures Date of Service Date of Service: 10/05/23
[2023-10-05 16:00] VITALS: BP 148/62; PULSE 99; RESP 19; TEMP 36.4; O2SAT 93
[2023-10-05 16:08] LABS: Glucose, Whole Blood 176 mg/dL (60-115)
[2023-10-05] MEDS: Furosemide 200 MG in 0.9 % Sodium Chloride 80 ML IVCONT (16:13)
--- NOTE | 2023-10-05 17:42 | PC.NURSE ---
Per communication order from Dr Walker, pt cath capped with plan to encourage ambulation. First attempt at assisting pt to bedside, pivot to commoed required 4 person plus spouse max assist. Pt desats on movement. Is peeing around cath- reported to Dr Romero the most recent cath empty after soiling bedding, the contents in urinal are dark oni/red tinged, streaky/milky.
--- NOTE | 2023-10-05 18:24 | HO.PM.IMPN ---
Subjective Subjective Date of Service: 10/06/23 Interval History: Being followed for acute CHF Denies chest pain, no palpitations, no shortness of breath, no other acute events overnight, lives at home with was ambulating short distances, up until few weeks ago. Denies urinary burning or dysuria but noted to have cloudy/mild blood in urine. Review of Systems All other system reviewed and negative Physical Exam Vital Signs: Vital Signs: Last Vital Signs Temp 97.5 F 10/05/23 16:00 Pulse 99 10/05/23 16:00 Resp 19 10/05/23 16:00 BP 148/62 H 10/05/23 16:00 Pulse Ox 93 10/05/23 16:00 O2 Del Method Nasal Cannula 10/05/23 16:00 O2 Flow Rate 3 10/05/23 16:00 BMI result Body Mass Index 70.8 Const: Other: Gen: Awake alert x3, in no acute distress HEENT: sclera anicteric, moist mucus membranes Neck: supple, no JVD Lungs: diminished breath sound Heart: regular rate and rhythm, no murmurs Abd: soft, non-tender, non-distended, obese, subcutaneous edema Ext: bilateral pitting leg edema Skin: Significant moist hyperemic rash both groins Neuro: alert and oriented x3, no focal findings Psych: appropriate affect Objective Data Active Medications Acetaminophen (Acetaminophen 325 Mg Tablet) 650 mg PO Q6H PRN PRN Reason: Fever, mild pain, or headache Last Admin: 10/05/23 04:12 Dose: 650 mg Documented By: RAYMUNDO Albuterol/Ipratropium (Albuterol/Iprat 2.5/0.5mg 3 Ml Ampul.Neb) 3 ml INHALE RQ4H WHILE AWAKE PRN PRN Reason: Shortness of Breath/Wheezing Benzonatate (Benzonatate 100 Mg Capsule) 100 mg PO TID PRN PRN Reason: Cough Calcium Carbonate (Calcium Carbonate 750 Mg Tab.Chew) 750 mg PO Q6H PRN PRN Reason: Heartburn Empagliflozin (Empagliflozin 10 Mg Tablet) 10 mg PO DAILY [facility] Last Admin: 10/05/23 08:05 Dose: 10 mg Documented By: JOEL Enoxaparin Sodium (Enoxaparin Sodium 40 Mg/0.4 Ml Syringe) 40 mg SUBCUT Q24H [facility] Last Admin: 10/04/23 20:43 Dose: 40 mg Documented By: MERLE Glucose (Glucose Gel 15 Gm Gel..Gram.) 15 gm PO Q15M PRN; Protocol PRN Reason: per Hypoglycemia Standing Ord. Dextrose (D10) 250 mls @ 750 mls/hr IV Q15M PRN; Protocol PRN Reason: per Hypoglycemia Standing Ord. Furosemide 200 mg/ Sodium (Chloride) 100 mls @ 2.5 mls/hr IVCONT .Q24H [facility] Last Admin: 10/05/23 16:13 Dose: 5 mg/hr, 2.5 mls/hr Documented By: JOEL Insulin Human Lispro (Insulin Lispro 100 Unit/Ml 3 Ml Vial) 0 unit SUBCUT QIDACHS [facility]; Protocol Last Admin: 10/05/23 16:12 Dose: 2 unit Documented By: JOEL Magnesium Hydroxide (Milk Of Magnesia 30 Ml Oral.Susp) 30 ml PO DAILY PRN PRN Reason: Constipation Melatonin (Melatonin 3 Mg Tablet) 6 mg PO BEDTIME PRN PRN Reason: Insomnia Last Admin: 10/04/23 23:12 Dose: 6 mg Documented By: MERLE Multivitamins/Vitamin C (Multivitamin Tablet) 1 tab PO DAILY [facility] Last Admin: 10/05/23 08:05 Dose: 1 tab Documented By: JOEL Ondansetron HCl (Ondansetron Hcl 4 Mg/2 Ml Vial) 4 mg IVPUSH Q8H PRN PRN Reason: Nausea and Vomiting Oxycodone HCl (Oxycodone Hcl Immed Release 5 Mg Tablet) 5 mg PO Q4H PRN PRN Reason: Pain, Severe (Pain Scale 7-10) Last Admin: 10/05/23 11:40 Dose: 5 mg Documented By: JOEL Polyethylene Glycol (Polyethylene Glycol 3350 17 Gm Powd.Pack) 17 gm PO DAILY PRN PRN Reason: Constipation Last Admin: 10/04/23 20:42 Dose: 17 gm Documented By: MERLE Senna/Docusate Sodium (Sennosides/Docusate Sodium Tablet) 2 tab PO BID [facility] Last Admin: 10/05/23 08:05 Dose: 2 tab Documented By: JOEL Sodium Chloride (0.9 % Sodium Chloride Flush 3 Ml Syringe) [facility] Last Admin: 10/05/23 16:13 Dose: Not Given Documented By: JOEL Non-Admin Reason: IV Running Tamsulosin HCl (Tamsulosin Hcl 0.4 Mg Capsule) 0.4 mg PO BEDTIME [facility] Labs 10/02/23 18:45 10/06/23 09:37 Labs: Laboratory Results - last 24 hr 10/04/23 10/05/23 10/05/23 20:23 06:37 07:37 Hold Purple Top SEE NOTE Anion Gap 17 Estim Creat Clear Calc 59.5 Estimated GFR 32 POC Glucose 167 H 131 H Random Glucose 130 H Calcium 9.6 Magnesium 2.4 B-Natriuretic Peptide 1542 H 10/05/23 10/05/23 11:21 16:03 Hold Purple Top Anion Gap Estim Creat Clear Calc Estimated GFR POC Glucose 191 H 176 H Random Glucose Calcium Magnesium B-Natriuretic Peptide Microbiology Microbiology Results: Microbiology 10/04/23 Unknown Urine Culture - Preliminary Urine clean catch - Urine galindo top Gram negative ryan Assessment and Plan (1) Acute exacerbation of CHF (congestive heart failure): Status: Acute Plan 68yo F with HFrEF [LVEF 40% May 2023], obesity presenting with urinary incontinence and found to be hypoxic from CHF exacerbation acute/chronic HFrEF -remains volume overloaded, will continue IV Lasix drip 5mg status post 1 dose of metolazone Continue low-sodium diet, stable renal function and electrolytes, monitor BNP/BMP/Mg + I/O. Chest x-ray showed central vascular prominence and prominent cardiac silhouette, component of mild edema not excluded Continue Jardiance, once euvolemic will consider B-jessica; ARB once Cr improved. Cardiology consulted, added Jardiance Echo June 12 showed mild to moderate LV systolic dysfunction, EF 40-5 45% pt. scheduled for outpt cath with Dr Dumont 10/07; to consider CardioMEMS device JUAN C - likely cardiorenal; creatinine trending down with diuresis, monitor BMP with diuresis [Cr 1.97->1.74 >1.6] Acute hypoxic respiratory failure - wean O2 with diuresis; also sleep study given obesity constipation -resolved, continue bowel regimen urinary incontinence - Lozano placed. UA showed 3 +leukocyte esterase, greater than 50 WBC and 4+ bacteria , urine culture Gram preliminary shows Gram-negative rods Will add IV ertapenem, since noted to have mild hematuria, has Lozano, history of ESBL positive Klebsiella, was felt to be colonized during last admission will consult ID Patient seen by Urology they recommend to cap Lozano catheter to encourage ambulation, to empty bladder every 3 hours, recommend alpha jessica after catheter removed. morbid obesity - diet/exercise /counseling done DM2, A1c 8.5 - stable blood sugars, continue correction dose lispro, Jardiance as above. Pt has not tolerated MTF in past. VTE ppx - LMWH dispo - PT not done due to advanced heart failure and awaiting cardiac catheterization. In my clinical judgment, the patient requires continued inpatient hospitalization for the following reasons: IV diuresis, hypoxia Total time managing care of this patient today: 40 minutes. Quality Stroke Does the patient have a stroke diagnosis?: No VTE Prior VTE?: No VTE Risk Level:: Medical - moderate - high VTE Device Contraindication: Treatment Not Indicated VTE Drug Contraindication: N/A - Med Ordered
[2023-10-05 20:00] VITALS: BP 134/64; PULSE 95; RESP 16; TEMP 36; O2SAT 92
[2023-10-05 20:16] LABS: Glucose, Whole Blood 183 mg/dL (60-115)
[2023-10-05] MEDS: Enoxaparin Sodium 40 MG/0.4 ML SYRINGE SUBCUT (22:11)
[2023-10-05] MEDS: Tamsulosin HCL 0.4 MG CAPSULE PO (22:11)
[2023-10-05] MEDS: Ertapenem Sodium 1 GM in 0.9 % Sodium Chloride 50 ML IV (22:14)
[2023-10-06] VITALS (7 sets, daily range): BP systolic 108–134; BP diastolic 57–69; PULSE 89–98; RESP 18–20; TEMP 36.3–37.1; O2SAT 90–95; BMI 69.1
--- NOTE | 2023-10-06 | ECG_ITS ---
Test Reason : chest pain Blood Pressure : / mmHG Vent. Rate : 097 BPM Atrial Rate : 097 BPM P-R Int : 182 ms QRS Dur : 116 ms QT Int : 358 ms P-R-T Axes : 051 228 038 degrees QTc Int : 454 ms Normal sinus rhythm Incomplete right bundle branch block Right ventricular hypertrophy Possible Anterolateral infarct (cited on or before 02-OCT-2023) Abnormal ECG When compared with ECG of 06-OCT-2023 10:28, No significant change was found Referred By: Nedra Romero Electronically Signed By:Jagdeep Rankin
[2023-10-06] MEDS: 0.9 % Sodium Chloride Flush 3 ML SYRINGE IVFLUSH (05:36)
[2023-10-06] MEDS: ondansetron HCL 4 MG/2 ML VIAL IVPUSH (06:35)
[2023-10-06 07:47] LABS: Glucose, Whole Blood 163 mg/dL (60-115)
[2023-10-06] MEDS: Multivitamin TABLET 1 TAB PO (07:59)
[2023-10-06] MEDS: Empagliflozin 10 MG TABLET PO (07:59)
[2023-10-06] MEDS: Sennosides/Docusate Sodium TABLET 2 TAB PO ×2 (07:59→21:54)
[2023-10-06] MEDS: Insulin Lispro 100 UNIT/ML 3 ML VIAL SUBCUT ×4 (08:00→22:02)
--- NOTE | 2023-10-06 10:15 | ECG_ITS ---
Test Reason : chest pain Blood Pressure : / mmHG Vent. Rate : 096 BPM Atrial Rate : 096 BPM P-R Int : 166 ms QRS Dur : 110 ms QT Int : 358 ms P-R-T Axes : 052 229 033 degrees QTc Int : 452 ms Normal sinus rhythm Right superior axis deviation Incomplete right bundle branch block Right ventricular hypertrophy Cannot rule out Anterior infarct (cited on or before 31-MAY-2023) Abnormal ECG When compared with ECG of 02-OCT-2023 18:59, No significant changes seen Referred By: Nedra Romero Electronically Signed By:Jagdeep Rankin
[2023-10-06 10:21] LABS: Anion Gap 17 (12-20); Blood Urea Nitrogen 92 mg/dL (9-16); Carbon Dioxide 31 mmol/L (22-29); Chloride 90 mmol/L (96-108); Creatinine Clr Calc Pharmacy 51.7; Estimated Glomerular Filt Rate 28; Glucose Random 171 mg/dL (60-115); Potassium 4.8 mmol/L (3.3-5.1); Sodium 133 mmol/L (135-145)
[2023-10-06 11:21] LABS: Glucose, Whole Blood 173 mg/dL (60-115)
[2023-10-06] MEDS: metOLazone 2.5 MG TABLET PO (11:26)
--- NOTE | 2023-10-06 12:48 | PM.PNCARD ---
Subjective Subjective Date of Service: 10/06/23 Principal diagnosis: Right heart failure Interval history: Patient with no significant urine output noted to be in positive balance. Creatinine is going appears still remains significantly fluid overloaded. Chest pain overnight but with normal EKG. Review of Systems Constitutional: Reports no additional constitutional complaints Eyes: Reports no additional eye complaints Cardiovascular: Reports Abdominal Distension and Reports leg edema Respiratory: Reports no additional respiratory complaints Physical Exam Vital Signs: Last Vital Signs Temp 97.6 F 10/06/23 11:53 Pulse 96 10/06/23 11:53 Resp 20 10/06/23 11:53 BP 118/60 10/06/23 11:53 Pulse Ox 93 10/06/23 11:53 O2 Del Method Nasal Cannula 10/06/23 11:53 O2 Flow Rate 2 10/06/23 11:53 BMI result Body Mass Index 69.1 Const Other: Gen: Awake alert x3, in no acute distress HEENT: sclera anicteric, moist mucus membranes Neck: supple, no JVD Lungs: diminished breath sound Heart: regular rate and rhythm, no murmurs Abd: soft, non-tender, non-distended, obese Ext: bilateral leg edema Skin: warm/well-perfused Neuro: alert and oriented x3, no focal findings Psych: appropriate affect Objective Labs and Meds 10/02/23 18:45 10/06/23 09:37 Lab results: Laboratory Results - last 24 hr 10/05/23 10/05/23 10/06/23 16:03 20:13 07:44 Hold Purple Top Sodium Potassium Chloride Carbon Dioxide Anion Gap BUN Creatinine Estim Creat Clear Calc Estimated GFR POC Glucose 176 H 183 H 163 H Random Glucose Calcium 10/06/23 10/06/23 09:37 11:14 Hold Purple Top SEE NOTE Sodium 133 L Potassium 4.8 Chloride 90 L Carbon Dioxide 31 H Anion Gap 17 BUN 92 H Creatinine 1.81 H Estim Creat Clear Calc 51.7 Estimated GFR 28 POC Glucose 173 H Random Glucose 171 H Calcium 10.0 Progress Note: A&P Assessment and plan (1) Acute exacerbation of CHF (congestive heart failure): Status: Acute Assessment and Plan: Acute heart failure most likely right-sided heart failure. Chest pain without any acute ischemic changes. Overall output has tapered on Lasix drip. I would increase Lasix to 10 mg an hour and add metolazone 2.5 mg. Her creatinine has gone up most likely due to right-sided heart failure and cardiorenal syndrome. Continue strict intake and output chart which needs to be accurate. Check renal function as well as BNP tomorrow. Overall very difficult to assess central venous pressure but appears to be significantly fluid overloaded. Will follow with you Time Spent With Patient Time: Total time managing care of this patient today ____ minutes. Progress Note: Quality Stroke Does the patient have a stroke diagnosis?: No Procedures Date of Service Date of Service: 10/06/23
[2023-10-06] MEDS: Furosemide 200 MG in 0.9 % Sodium Chloride 80 ML IVCONT (14:30)
[2023-10-06] MEDS: Lactulose 20 GM/30 ML SOLUTION PO (14:31)
--- NOTE | 2023-10-06 15:57 | P.PNIM_ITS ---
Subjective Subjective Date of Service: 10/06/23 Interval History: Complaining of mid chest pain , mild nausea, denies shortness of breath, no diaphoresis, no bowel dilatation, decreased appetite no abdominal pain passing flatus feels constipated, denies having bowel movement in last few days, noted to have hematuria, urinary output 300 mL. Review of Systems All other system reviewed and negative Physical Exam 2 Vital Signs: Vital Signs: Last Vital Signs Temp 97.6 F 10/06/23 11:53 Pulse 96 10/06/23 11:53 Resp 20 10/06/23 11:53 BP 118/60 10/06/23 11:53 Pulse Ox 93 10/06/23 11:53 O2 Del Method Nasal Cannula 10/06/23 11:53 O2 Flow Rate 2 10/06/23 11:53 BMI result Body Mass Index 69.1 Const: Other: Gen: Awake alert x3, in no acute distress HEENT: sclera anicteric, moist mucus membranes Neck: supple, no JVD Lungs: diminished breath sound Heart: regular rate and rhythm, no murmurs Abd: soft, mild epigastric discomfort to palpation, non-distended, obese, subcutaneous edema Ext: bilateral pitting leg edema Skin: Significant moist hyperemic rash both groins Neuro: alert and oriented x3, no focal findings Psych: appropriate affect Lozano catheter with dark bloody urine/no clots Objective Data Active Medications Acetaminophen (Acetaminophen 325 Mg Tablet) 650 mg PO Q6H PRN PRN Reason: Fever, mild pain, or headache Last Admin: 10/05/23 22:23 Dose: 650 mg Documented By: MERLE Albuterol/Ipratropium (Albuterol/Iprat 2.5/0.5mg 3 Ml Ampul.Neb) 3 ml INHALE RQ4H WHILE AWAKE PRN PRN Reason: Shortness of Breath/Wheezing Benzonatate (Benzonatate 100 Mg Capsule) 100 mg PO TID PRN PRN Reason: Cough Calcium Carbonate (Calcium Carbonate 750 Mg Tab.Chew) 750 mg PO Q6H PRN PRN Reason: Heartburn Empagliflozin (Empagliflozin 10 Mg Tablet) 10 mg PO DAILY [facility] Last Admin: 10/06/23 07:59 Dose: 10 mg Documented By: JOEL Enoxaparin Sodium (Enoxaparin Sodium 40 Mg/0.4 Ml Syringe) 40 mg SUBCUT Q24H [facility] Last Admin: 10/05/23 22:11 Dose: 40 mg Documented By: MERLE Glucose (Glucose Gel 15 Gm Gel..Gram.) 15 gm PO Q15M PRN; Protocol PRN Reason: per Hypoglycemia Standing Ord. Dextrose (D10) 250 mls @ 750 mls/hr IV Q15M PRN; Protocol PRN Reason: per Hypoglycemia Standing Ord. Furosemide 200 mg/ Sodium (Chloride) 100 mls @ 5 mls/hr IVCONT .Q20H [facility] Last Admin: 10/06/23 14:30 Dose: 10 mg/hr, 5 mls/hr Documented By: JOEL Insulin Human Lispro (Insulin Lispro 100 Unit/Ml 3 Ml Vial) 0 unit SUBCUT QIDACHS [facility]; Protocol Last Admin: 10/06/23 11:26 Dose: 2 unit Documented By: JOEL Magnesium Hydroxide (Milk Of Magnesia 30 Ml Oral.Susp) 30 ml PO DAILY PRN PRN Reason: Constipation Melatonin (Melatonin 3 Mg Tablet) 6 mg PO BEDTIME PRN PRN Reason: Insomnia Last Admin: 10/04/23 23:12 Dose: 6 mg Documented By: MERLE Multivitamins/Vitamin C (Multivitamin Tablet) 1 tab PO DAILY [facility] Last Admin: 10/06/23 07:59 Dose: 1 tab Documented By: JOEL Omeprazole (Omeprazole 20 Mg Capsule.Dr) 20 mg PO DAILY@0630 [facility] Ondansetron HCl (Ondansetron Hcl 4 Mg/2 Ml Vial) 4 mg IVPUSH Q8H PRN PRN Reason: Nausea and Vomiting Last Admin: 10/06/23 06:35 Dose: 4 mg Documented By: PRAMOD Oxycodone HCl (Oxycodone Hcl Immed Release 5 Mg Tablet) 5 mg PO Q4H PRN PRN Reason: Pain, Severe (Pain Scale 7-10) Last Admin: 10/05/23 18:38 Dose: 5 mg Documented By: JOEL Polyethylene Glycol (Polyethylene Glycol 3350 17 Gm Powd.Pack) 17 gm PO DAILY PRN PRN Reason: Constipation Last Admin: 10/04/23 20:42 Dose: 17 gm Documented By: MERLE Senna/Docusate Sodium (Sennosides/Docusate Sodium Tablet) 2 tab PO BID [facility] Last Admin: 10/06/23 07:59 Dose: 2 tab Documented By: JOEL Sodium Chloride (0.9 % Sodium Chloride Flush 3 Ml Syringe) 3 ml IVFLUSH QSHIFT [facility] Last Admin: 10/06/23 08:03 Dose: Not Given Documented By: JOEL Non-Admin Reason: IV Running Tamsulosin HCl (Tamsulosin Hcl 0.4 Mg Capsule) 0.4 mg PO BEDTIME [facility] Last Admin: 10/05/23 22:11 Dose: 0.4 mg Documented By: MERLE Labs 10/02/23 18:45 10/06/23 09:37 Labs: Laboratory Results - last 24 hr 10/05/23 10/05/23 10/06/23 16:03 20:13 07:44 Hold Purple Top Anion Gap Estim Creat Clear Calc Estimated GFR POC Glucose 176 H 183 H 163 H Random Glucose Calcium 10/06/23 10/06/23 09:37 11:14 Hold Purple Top SEE NOTE Anion Gap 17 Estim Creat Clear Calc 51.7 Estimated GFR 28 POC Glucose 173 H Random Glucose 171 H Calcium 10.0 Microbiology Microbiology Results: Microbiology 10/04/23 Unknown Urine Culture - Final Urine clean catch - Urine galindo top Klebsiella pneumoniae Assessment and Plan (1) Acute exacerbation of CHF (congestive heart failure): Status: Acute Plan 68yo F with HFrEF [LVEF 40% May 2023], obesity presenting with urinary incontinence and found to be hypoxic from CHF exacerbation acute/chronic HFrEF -remains volume overloaded, noted to have worsening creatinine 1.8, case discussed with Cardiology, will continue IV Lasix drip increase dose to 10mg and repeat 1 dose of metolazone Continue low-sodium diet, monitor BNP/BMP/Mg + I/O. Chest x-ray showed central vascular prominence and prominent cardiac silhouette, component of mild edema not excluded Continue Jardiance, once euvolemic will consider B-jessica; ARB once Cr improved. Continue Jardiance Echo June 12 showed mild to moderate LV systolic dysfunction, EF 40-5 45% pt. scheduled for outpt cath with Dr Dumont 10/07; to consider CardioMEMS device JUAN C - likely cardiorenal; creatinine bumped back to 1.8 therefore will increase dose of Lasix as above and follow BMP Acute hypoxic respiratory failure - wean O2 with diuresis; also sleep study given obesity constipation -continue Senokot will add lactulose urinary incontinence/hematuria - noted to have hematuria question due to UTI/no history of trauma Will follow CBC/consider CBI and will discuss further treatment plan with urology if hematuria persists seen by Urology they recommend to cap Lozano catheter to encourage ambulation, patient noted to have leakage around the Lozano catheter therefore placed to Lozano bag. UTI UA showed 3 +leukocyte esterase, greater than 50 WBC and 4+ bacteria , urine culture grew ESBL positive Klebsiella similar to prior culture on June 12 and was felt to be colonized s/p IV ertapenem x 1 dose, since noted to have mild hematuria, has Lozano, will continue treatment with IV meropenem renally dosed ID consult morbid obesity - diet/exercise /counseling done DM2, A1c 8.5 - stable blood sugars, continue correction dose lispro, Jardiance as above. Pt has not tolerated MTF in past. VTE ppx - LMWH dispo - PT not done due to advanced heart failure and awaiting cardiac catheterization. In my clinical judgment, the patient requires continued inpatient hospitalization for the following reasons: IV diuresis, hypoxia Total time managing care of this patient today: 40 minutes. Quality Stroke Does the patient have a stroke diagnosis?: No VTE Prior VTE?: No VTE Risk Level:: Medical - moderate - high VTE Device Contraindication: Treatment Not Indicated VTE Drug Contraindication: N/A - Med Ordered
[2023-10-06 16:35] LABS: Glucose, Whole Blood 187 mg/dL (60-115)
[2023-10-06] MEDS: Acetaminophen 325 MG TABLET 650 MG PO (17:22)
--- NOTE | 2023-10-06 18:30 | PC.NURSE ---
Around 1030 this am, pt reporting epigastric discomfort, feels like hurts when applying pressure, and when applying pressure can feel it in her back. Dr Romero at bedside during this time, completed pt assessment. Orders placed for EKG, completed, Dr Romero did not place any new orders, stated no new findings on EKG. Pt repositioned and reports improvement in comfort. Serrano output remains low, dark/red sediment. Flushed/irrigated per Dr Romero request x 2 with 60cc sterile water. No resistance felt, return fluid immediately in serrano (leg bag). Dr. Romero to follw up and place orders as needed.
[2023-10-06 20:31] LABS: Glucose, Whole Blood 163 mg/dL (60-115)
[2023-10-06] MEDS: Melatonin 3 MG TABLET 6 MG PO (21:53)
[2023-10-06] MEDS: Enoxaparin Sodium 40 MG/0.4 ML SYRINGE SUBCUT (21:53)
[2023-10-06] MEDS: Tamsulosin HCL 0.4 MG CAPSULE PO (21:54)
[2023-10-07 01:44] LABS: Appearance Urine Turbid; Color Urine RED; Glucose Urine UA Negative (Negative); Leukocyte Esterase Urine Moderate (2+) (Negative); Nitrite Urine Positive (Negative); PH 6.5 (5.0-9.0); Specific Gravity - Urine 1.025 (1.005-1.025); UMIC TRIGGER UACC YES; Urine Blood Large (3+) (Negative); Urine Ketones Trace mg/dL (Negative); Urine Protein 300 (3+) mg/dL (Neg-Trace)
[2023-10-07 01:56] LABS: Bacteria Urine Trace (None Seen); Hyaline Casts Urine 0-2 /LPF (0-2); RBC Urine >20 /HPF (0-2); Squamous Epithelial Cell Urine 0-2 /HPF (0-2); UACC Culture Trigger YES; WBC Urine >50 /HPF (0-5)
[2023-10-07 02:59] VITALS: BP 117/57; PULSE 93; RESP 20; TEMP 36.1; O2SAT 94
[2023-10-07] MEDS: diphenhydrAMINE HCL 25 MG CAPSULE 50 MG PO (03:59)
[2023-10-07 06:00] VITALS: BMI 69.7
[2023-10-07 06:47] LABS: Hematocrit 41.3 % (37.0-47.0); Hemoglobin 11.4 g/dl (12.0-16.0); Mean Corpuscular HGB Conc 27.6 g/dl (31.0-35.0); Mean Corpuscular Hemoglobin 21.3 pg (27.0-33.0); Mean Corpuscular Volume 77.2 fL (80.0-98.0); Mean Platelet Volume 9.7 fL (9.4-12.3); NRBC Pct Auto 1.1 /100WBC (0.0-0.2); Platelet Count 300 X10*3/uL (160-400); Red Blood Count 5.35 X10*6/uL (4.20-5.50); Red Cell Distribution Width 21.6 % (11.0-16.0); White Blood Count 6.4 X10*3/uL (4.8-10.8)
[2023-10-07 07:07] LABS: Anion Gap 15 (12-20); Blood Urea Nitrogen 95 mg/dL (9-16); Calcium 9.8 mg/dL (8.4-10.2); Carbon Dioxide 30 mmol/L (22-29); Chloride 92 mmol/L (96-108); Estimated Glomerular Filt Rate 25; Glucose Random 142 mg/dL (60-115); Sodium 132 mmol/L (135-145)
[2023-10-07 07:17] LABS: Glucose, Whole Blood 173 mg/dL (60-115)
[2023-10-07 07:51] VITALS: BP 124/66; PULSE 89; RESP 20; TEMP 36.4; O2SAT 95
[2023-10-07] MEDS: Empagliflozin 10 MG TABLET PO (08:34)
[2023-10-07] MEDS: Insulin Lispro 100 UNIT/ML 3 ML VIAL SUBCUT (08:34)
[2023-10-07] MEDS: Multivitamin TABLET 1 TAB PO (08:34)
--- NOTE | 2023-10-07 10:48 | MHC.CM.PN ---
Pt is not ready for DC. She requires continued hospitalization for IV diuresis and hypoxia. She does have HCP on file: Gallo Tomas. DC plan is STR at [facility], referral in, and they are requesting further info. CM to continue to assist with DC planning.
[2023-10-07] MEDS: Furosemide 200 MG in 0.9 % Sodium Chloride 80 ML IVCONT (10:55)
[2023-10-07 10:59] LABS: Glucose, Whole Blood 136 mg/dL (60-115)
[2023-10-07 11:40] VITALS: BP 110/79; PULSE 90; RESP 20; TEMP 36.4; O2SAT 96
--- NOTE | 2023-10-07 11:57 | P.PNCA_ITS ---
Subjective Subjective Date of Service: 10/07/23 Principal diagnosis: Right heart failure Interval history: Seen examined at bedside. She has right-sided heart failure and has been on diuretics with poor urine output. BUN is 95 and creatinine 1.96 today. Physical Exam Vital Signs: Last Vital Signs Temp 97.6 F 10/07/23 11:40 Pulse 90 10/07/23 11:40 Resp 20 10/07/23 11:40 BP 110/79 10/07/23 11:40 Pulse Ox 96 10/07/23 11:40 O2 Del Method Nasal Cannula 10/07/23 11:40 O2 Flow Rate 3 10/07/23 11:40 BMI result Body Mass Index 69.7 GENERAL APPEARANCE: in no acute distress, morbidly obese. NECK: no carotid bruit, + jugular venous distention. SKIN: no suspicious lesions, warm and dry. HEART: no murmurs, regular rate and rhythm. LUNGS: clear to auscultation bilaterally. ABDOMEN: soft, nontender. EXTREMITIES: + edema. PERIPHERAL PULSES: equal. NEUROLOGIC: No gross deficits, AAO X 3 Objective Labs and Meds 10/07/23 06:22 10/07/23 06:22 Lab results: Laboratory Results - last 24 hr 10/06/23 10/06/23 10/07/23 16:31 20:25 01:20 WBC RBC Hgb Hct MCV MCH MCHC RDW Plt Count MPV Absolute Nucleated RBC Nucleated RBC % (auto) Smear Path Review Sodium Potassium Chloride Carbon Dioxide Anion Gap BUN Creatinine Estim Creat Clear Calc Estimated GFR POC Glucose 187 H 163 H Random Glucose Calcium Urine Color RED Urine Appearance Turbid Urine pH 6.5 Ur Specific [place] 1.025 Urine Protein 300 (3+) H Urine Glucose (UA) Negative Urine Ketones Trace Urine Blood Large (3+) H Urine Nitrite Positive H Ur Leukocyte Esterase Moderate (2+) H Urine RBC >20 H Urine WBC >50 H Ur Squamous Epith Cells 0-2 Urine Bacteria Trace Hyaline Casts 0-2 10/07/23 10/07/23 10/07/23 06:22 07:13 10:52 WBC 6.4 RBC 5.35 Hgb 11.4 L Hct 41.3 MCV 77.2 L MCH 21.3 L MCHC 27.6 L RDW 21.6 H Plt Count 300 MPV 9.7 Absolute Nucleated RBC 0.070 H Nucleated RBC % (auto) 1.1 H Smear Path Review SEE NOTE Sodium 132 L Potassium 5.0 Chloride 92 L Carbon Dioxide 30 H Anion Gap 15 BUN 95 H Creatinine 1.96 H Estim Creat Clear Calc 48.0 Estimated GFR 25 POC Glucose 173 H 136 H Random Glucose 142 H Calcium 9.8 Urine Color Urine Appearance Urine pH Ur Specific [place] Urine Protein Urine Glucose (UA) Urine Ketones Urine Blood Urine Nitrite Ur Leukocyte Esterase Urine RBC Urine WBC Ur Squamous Epith Cells Urine Bacteria Hyaline Casts Progress Note: A&P Assessment and plan (1) Acute exacerbation of CHF (congestive heart failure): Status: Acute (2) Acute kidney injury: Status: Acute Plan 68-year-old female with right-sided heart failure clinically who has been on IV diuretics and metolazone with worsening kidney function and poor urine output. She has been experiencing off and on chest tightness. She has ESBL UTI and is on antibiotics. She has a patient of Dr. Dumont and told me that she was planned to undergo angiography cause of chest tightness. Currently quite difficult to assess her volume status due to significant obesity. By my exam she appears to be volume overloaded but with diuretics her creatinine has been rising. I think she would benefit from [id number] heart catheterization and I will discuss with [facility] cardiovascular associates to see if she could be transferred to [facility]. Continue antibiotics. Thank you for allowing me to participate in the care of your patient. Please feel free to contact me if you have any questions. Time Spent With Patient Time: Total time managing care of this patient today ____ minutes. Progress Note: Quality Stroke Does the patient have a stroke diagnosis?: No Procedures Date of Service Date of Service: 10/07/23
--- NOTE | 2023-10-07 12:27 | PM.CNNEP ---
History of Present Illness Reason for Consult Consult date: 10/07/23 Chief Complaint Chief complaint: CHF exacerbation History of Present Illness Narrative: 68-year-old female who initially presented to the ED for Lozano catheter placement. Patient reports she has lost bladder control approximately 2 weeks ago. Started out as occasional incontinence, but soon turned into constant dripping. She initially called her PCP who placed an order for Lozano insertion by [facility]. Visiting nurse attempted to place Lozano x3 times at home but failed. She then called her PCP back who suggested she come to the ED for Lozano placement. While in the ED patient was noted to be hypoxic as low as 84% on RA and have an elevated BNP of 1192, greater than previous. Patient was previously admitted to the hospital on 05/31-06/07/2023 for multiple conditions, including acute hypoxic respiratory failure in the setting of influenza infection, superimposed pneumonia, and new onset CHF. Patient was discharged on furosemide 40 mg daily which she initially reports taking. However, patient is seen developed constipation which she attributed to the furosemide and so stopped taking her home diuretics a few weeks ago. Denies any significant SOB or increase in lower leg edema, patient says she believes she has gained some weight, but denies any abdominal swelling. No chest pain/pressure, palpitations. No fever, chills, nausea, vomiting, abdominal pain. In the ED pt was tachycardic up to 105, tachypneic up to 25, was soft BP as low as 109/58, and hypoxic as low as 84% on RA. Labs were significant for BUN 93, creatinine 1.97, initial troponin 46.2, and BNP 1192. No leukocytosis. CXR showed central vascular prominence and prominent cardiac silhouette, similar to prior with possible mild pulmonary edema. EKG demonstrated normal sinus rhythm with right ventricular hypertrophy and possible septal infarct, but no evidence of significant ST elevations or depressions. Pt was treated with diuresis .Pt was admitted to the hospital for further treatment . Nephrology has been consulted to assist in her clinical care during her current hospital stay Review of Systems Review of Systems Yes all other systems are reviewed and are negative PMFSH Past Medical History Medical History Edema, peripheral CAD (coronary artery disease) Degenerative disc disease, lumbar Scoliosis Surgical History Surgical History History of cholecystectomy Social History Social History Household Members: Spouse Housing: House Do you presently have visiting nurse or other home services: Yes ([facility]) Patient Tobacco Use Status: Former Tobacco user service: No Current occupational status: unemployed Meds Allergies Allergy/AdvReac Type Severity Reaction Status Date / Time Penicillins Allergy Anaphylaxis Verified 10/02/23 15:19 Sulfa (Sulfonamide Allergy Anaphylaxis Verified 10/02/23 15:19 Antibiotics) Active Medications: Current Medications Acetaminophen (Acetaminophen 325 Mg Tablet) 650 mg PO Q6H PRN PRN Reason: Fever, mild pain, or headache Last Admin: 10/06/23 17:22 Dose: 650 mg Albuterol/Ipratropium (Albuterol/Iprat 2.5/0.5mg 3 Ml Ampul.Neb) 3 ml INHALE RQ4H WHILE AWAKE PRN PRN Reason: Shortness of Breath/Wheezing Benzonatate (Benzonatate 100 Mg Capsule) 100 mg PO TID PRN PRN Reason: Cough Calcium Carbonate (Calcium Carbonate 750 Mg Tab.Chew) 750 mg PO Q6H PRN PRN Reason: Heartburn Enoxaparin Sodium (Enoxaparin Sodium 40 Mg/0.4 Ml Syringe) 40 mg SUBCUT Q24H [facility] Last Admin: 10/06/23 21:53 Dose: 40 mg Glucose (Glucose Gel 15 Gm Gel..Gram.) 15 gm PO Q15M PRN; Protocol PRN Reason: per Hypoglycemia Standing Ord. Dextrose (D10) 250 mls @ 750 mls/hr IV Q15M PRN; Protocol PRN Reason: per Hypoglycemia Standing Ord. Insulin Human Lispro (Insulin Lispro 100 Unit/Ml 3 Ml Vial) 0 unit SUBCUT QIDACHS [facility]; Protocol Last Admin: 10/07/23 11:02 Dose: Not Given Magnesium Hydroxide (Milk Of Magnesia 30 Ml Oral.Susp) 30 ml PO DAILY PRN PRN Reason: Constipation Melatonin (Melatonin 3 Mg Tablet) 6 mg PO BEDTIME PRN PRN Reason: Insomnia Last Admin: 10/06/23 21:53 Dose: 6 mg Multivitamins/Vitamin C (Multivitamin Tablet) 1 tab PO DAILY [facility] Last Admin: 10/07/23 08:34 Dose: 1 tab Omeprazole (Omeprazole 20 Mg Capsule.Dr) 20 mg PO DAILY@0630 [facility] Last Admin: 10/07/23 05:44 Dose: Not Given Ondansetron HCl (Ondansetron Hcl 4 Mg/2 Ml Vial) 4 mg IVPUSH Q8H PRN PRN Reason: Nausea and Vomiting Last Admin: 10/06/23 06:35 Dose: 4 mg Oxycodone HCl (Oxycodone Hcl Immed Release 5 Mg Tablet) 5 mg PO Q4H PRN PRN Reason: Pain, Severe (Pain Scale 7-10) Last Admin: 10/05/23 18:38 Dose: 5 mg Polyethylene Glycol (Polyethylene Glycol 3350 17 Gm Powd.Pack) 17 gm PO DAILY PRN PRN Reason: Constipation Last Admin: 10/04/23 20:42 Dose: 17 gm Senna/Docusate Sodium (Sennosides/Docusate Sodium Tablet) 2 tab PO BID [facility] Last Admin: 10/07/23 08:35 Dose: Not Given Sodium Chloride (0.9 % Sodium Chloride Flush 3 Ml Syringe) 3 ml IVFLUSH QSHIFT [facility] Last Admin: 10/07/23 08:34 Dose: Not Given Tamsulosin HCl (Tamsulosin Hcl 0.4 Mg Capsule) 0.4 mg PO BEDTIME [facility] Last Admin: 10/06/23 21:54 Dose: 0.4 mg Home Medications ?Medication ?Instructions ?Recorded ?Confirmed ?Last Taken ?Type Bacillus coagulans-inulin 1 1 cap PO DAILY 05/31/23 10/02/23 05/30/23 History billion cell-250 mg capsule ashwagandha extract 1 cap PO DAILY 05/31/23 10/02/23 05/30/23 History berberine-herbal comb no.18 capsule 1 cap PO DAILY 05/31/23 10/02/23 05/30/23 History krill oil 1 cap PO DAILY 05/31/23 10/02/23 05/30/23 History multivitamin with minerals 1 tab PO DAILY 05/31/23 10/02/23 05/30/23 History hnsjiincw-aetvwvq-brsjaexes capsule 1 cap PO DAILY 05/31/23 10/02/23 05/30/23 History vit C-vit O-kfnwyt-yyeiolho capsule 1 cap PO DAILY 05/31/23 10/02/2324 History vitamin D3 25 mcg (1,000 unit)-vit 1 tab PO DAILY 05/31/23 10/02/23 05/30/23 History K2 90 mcg disintegrating tablet (D3 Plus K2 Dots) lmktonxe-xucvul-itwld extract 5 1 cap PO DAILY 10/02/23 10/02/23 Unknown History mg-6 mg-150 mg capsule (Fruit and Vegetable Daily) Physical Exam Vital Signs: Last Vital Signs Temp 97.6 F 10/07/23 11:40 Pulse 90 10/07/23 11:40 Resp 20 10/07/23 11:40 BP 110/79 10/07/23 11:40 Pulse Ox 96 10/07/23 11:40 O2 Del Method Nasal Cannula 10/07/23 11:40 O2 Flow Rate 3 10/07/23 11:40 BMI result Body Mass Index 69.7 Const General: no acute distress Eyes EOM: EOMs intact bilaterally Resp Auscultation: diminished lung sounds Cardio Rate: regular rate GI Palpation (GI): Soft to palpation Neuro General: moves all extremities Results Lab Results 10/07/23 06:22 10/07/23 06:22 Lab results: Chemistry 10/05/23 10/06/23 10/07/23 06:37 09:37 06:22 Sodium 133 L 133 L 132 L Potassium 4.5 4.8 5.0 Carbon Dioxide 28 31 H 30 H BUN 91 H 92 H 95 H Creatinine 1.60 H 1.81 H 1.96 H Calcium 9.6 10.0 9.8 Hematology 10/07/23 06:22 WBC 6.4 Hgb 11.4 L Plt Count 300 Urinalysis 10/07/23 01:20 Urine Color RED Urine Appearance Turbid Urine pH 6.5 Ur Specific [place] 1.025 Urine Protein 300 (3+) H Urine Glucose (UA) Negative Urine Ketones Trace Urine Blood Large (3+) H Urine Nitrite Positive H Ur Leukocyte Esterase Moderate (2+) H Urine RBC >20 H Urine WBC >50 H Ur Squamous Epith Cells 0-2 Hyaline Casts 0-2 Assessment and Plan (1) Acute kidney injury: Status: Acute Plan JUAN C due to tubular injury UO not robust on diuretics Will be better served by SG catheter to assess volume status Shall hold diuresis/Jardiance for now Will need cardiac cath as per cards No indication for renal replacement now Shall closely follow up Procedures Date of Service Date of Service: 10/07/23
--- NOTE | 2023-10-07 13:08 | P.DS_ITS ---
DS: Providers Provider Date of Service: 10/07/23 Date of admission: 10/02/23 22:17 Primary care physician: Kobi Cornejo MD Consults: 10/03/23 08:27 Consult to Cardiology Routine Consulting Provider: [facility] – [place] [facility] Reason for consultation: HFrEF, cardiorenal 10/03/23 17:18 Consult to Wound Care Routine Reason for consultation: rashes to abdominal folds, open area to bilateral legs, dry skin 10/04/23 08:05 Consult to Urology Routine Consulting Provider: [facility] – [place] [facility] Reason for consultation: New acute incontinence 10/05/23 18:45 Consult to Infectious Diseases Routine Consulting Provider: Nae Ledesma Reason for consultation: uti hx of esbl uti 10/07/23 07:52 Consult to Nephrology Routine Consulting Provider: [facility] – [place] [facility] Reason for consultation: juan c Has provider been notified: No DS: Diagnosis Discharge Diagnosis (1) Acute kidney injury: Status: Acute DS: Summary Hospital Course Hospital Course: History of presenting illness: Date of Service: 10/02/23 Attending physician on admission: Misha Gomez Chief Complaint: Incontinence Pt is a 68-year-old female with a PMH significant for?peripheral edema, HFrEF (LVEF 40-45%), prn home O2, obesity class III, and hx of appendectomy and cholecystectomy who initially presented to the ED for Lozano catheter placement. Patient reports she has lost bladder control approximately 2 weeks ago. Started out as occasional incontinence, but soon turned into constant dripping. Patient states she ?can not hold anything in?. She initially called her PCP who placed an order for Lozano insertion by [facility]. Visiting nurse attempted to place Lozano x3 times at home but failed. She then called her PCP back who suggested she come to the ED for Lozano placement. While in the ED patient was noted to be hypoxic as low as 84% on RA and have an elevated BNP of 1192, greater than previous. Patient was previously admitted to the hospital on 05/31-06/07/2023 for multiple conditions, including acute hypoxic respiratory failure in the setting of influenza infection, superimposed pneumonia, and new onset CHF. Patient was discharged on furosemide 40 mg daily which she initially reports taking. However, patient is seen developed constipation which she attributed to the furosemide and so stopped taking her home diuretics a few weeks ago. In fact, patient is not on any home prescriptions at this time but instead takes multiple herbal supplements, including ?Fluid Away . Patient has been experiencing some increased difficulty breathing, which she attributes to eating a gluten based p tamy crust that her ordered. Denies any significant SOB or increase in lower leg edema, patient says she believes she has gained some weight, but denies any abdominal swelling. No chest pain/pressure, palpitations. No fever, chills, nausea, vomiting, abdominal pain. In the ED pt was tachycardic up to 105, tachypneic up to 25, was soft BP as low as 109/58, and hypoxic as low as 84% on RA. Labs were significant for BUN 93, creatinine 1.97, initial troponin 46.2, and BNP 1192. No leukocytosis. Stable H&H. CXR showed central vascular prominence and prominent cardiac silhouette, similar to prior with possible mild pulmonary edema. EKG demonstrated normal sinus rhythm with right ventricular hypertrophy and possible septal infarct, but no evidence of significant ST elevations or depressions. Pt was treated with Lasix 40 mg IV. Pt will be admitted to the hospital for treatment further evaluation of acute on chronic hypoxic respiratory failure in setting of acute CHF exacerbation. Hospital course: 68yo F with HFrEF [LVEF 40% May 2023], obesity presenting with urinary incontinence and found to be hypoxic and admitted to [facility] with a diagnosis of acute hypoxic respiratory failure likely due to acute on chronic heart failure with reduced EF patient also noted to have acute kidney injury initially felt to be cardiorenal patient was diuresed with IV Lasix drip initially creatinine improved from 1.97-1.6, but then patient noted to have decreased urinary output on 10/05 and creatinine bumped to 1.96 acute on chronic HFrEF and possible right-sided heart failure , seen by internet marketing executive just and treated with IV Lasix drip,and Jardiance, > 5 L negative, but noted to have decreased urine output in last 24 hours with worsening creatinine, therefore patient being transferred to [facility] for cardiac catheterization to assess volume status, Echo June 12 showed mild to moderate LV systolic dysfunction, EF 40-5 45%, pt. scheduled for outpt cath with Dr Dumont 10/07,and to consider CardioMEMS device, patient renal function and electrolytes were monitored closely patient noted to have mild hyponatremia with a sodium of 132 today, potassium 5, EKG showed no ischemia, troponin elevated but flat 46.2 repeat 55.4. JUAN C initially felt to be cardiorenal, treated with diuretics but noted to have worsening kidney injury with decreased urine output due to difficulty in assessing volume status cardiology and nephrology recommend cardiac catheterization. Acute hypoxic respiratory failure - not on home oxygen due to above, will also benefit from sleep study. Constipation continue Senokot and MiraLax urinary incontinence patient evaluated by Urology and started on Flomax, Lozano catheter placed , plan was for voiding trial once Lasix IV was completed, but patient noted to have hematuria with decreased urine output Question due to trauma versus UTI, No clots noted, hematocrit remained stable therefore CBI not initiated. UTI UA showed 3 +leukocyte esterase, greater than 50 WBC and 4+ bacteria , urine culture grew ESBL positive Klebsiella similar to prior culture on June 12 , s/p IV ertapenem x 1 dose,on 10/04,now on IV meropenem renally dosed. morbid obesity - recommend low-calorie diet exercise and weight loss. DM2, A1c 8.5 not on home medications, patient has not tolerated metformin in the past, on diabetic diet , blood sugars less than 200, continue correction dose insulin. Time Attestation Discharge Coordination Time (in mins): 40 Quality: Safe Use of Opioids Does Pt have an Active Cancer Diagnosis on the Problem List?: No Quality: Stroke Does the patient have a stroke diagnosis?: No Physical Exam Vital Signs: Vital Signs: Last Vital Signs Temp 97.6 F 10/07/23 11:40 Pulse 90 10/07/23 11:40 Resp 20 10/07/23 11:40 BP 110/79 10/07/23 11:40 Pulse Ox 96 10/07/23 11:40 O2 Del Method Nasal Cannula 10/07/23 11:40 O2 Flow Rate 3 10/07/23 11:40 BMI result Body Mass Index 69.7 Const: Other: Gen: Awake alert x3, in no acute distress HEENT: sclera anicteric, moist mucus membranes Neck: supple, difficult to assess JVD Lungs: Clear to auscultation, no wheeze Heart: regular rate and rhythm, no murmurs Abd: soft, mild epigastric discomfort to palpation, non-distended, obese, subcutaneous edema Ext: bilateral pitting leg edema Skin: Significant moist hyperemic rash both groins Neuro: alert and oriented x3, no focal findings Psych: appropriate affect Lozano catheter with dark bloody urine/no clots DS: Data Data Completed and Pending Labs on day of discharge: Laboratory Results - last 24 hr 10/06/23 10/06/23 10/07/23 16:31 20:25 01:20 WBC RBC Hgb Hct MCV MCH MCHC RDW Plt Count MPV Absolute Nucleated RBC Nucleated RBC % (auto) Smear Path Review Sodium Potassium Chloride Carbon Dioxide Anion Gap BUN Creatinine Estim Creat Clear Calc Estimated GFR POC Glucose 187 H 163 H Random Glucose Calcium Urine Color RED Urine Appearance Turbid Urine pH 6.5 Ur Specific [place] 1.025 Urine Protein 300 (3+) H Urine Glucose (UA) Negative Urine Ketones Trace Urine Blood Large (3+) H Urine Nitrite Positive H Ur Leukocyte Esterase Moderate (2+) H Urine RBC >20 H Urine WBC >50 H Ur Squamous Epith Cells 0-2 Urine Bacteria Trace Hyaline Casts 0-2 10/07/23 10/07/23 10/07/23 06:22 07:13 10:52 WBC 6.4 RBC 5.35 Hgb 11.4 L Hct 41.3 MCV 77.2 L MCH 21.3 L MCHC 27.6 L RDW 21.6 H Plt Count 300 MPV 9.7 Absolute Nucleated RBC 0.070 H Nucleated RBC % (auto) 1.1 H Smear Path Review SEE NOTE Sodium 132 L Potassium 5.0 Chloride 92 L Carbon Dioxide 30 H Anion Gap 15 BUN 95 H Creatinine 1.96 H Estim Creat Clear Calc 48.0 Estimated GFR 25 POC Glucose 173 H 136 H Random Glucose 142 H Calcium 9.8 Urine Color Urine Appearance Urine pH Ur Specific [place] Urine Protein Urine Glucose (UA) Urine Ketones Urine Blood Urine Nitrite Ur Leukocyte Esterase Urine RBC Urine WBC Ur Squamous Epith Cells Urine Bacteria Hyaline Casts Discharge Plan Discharge Anticipated Discharge Date/Time: 10/07/23 12:57 Patient Disposition: Xfer Acute Care Hospital Discharge Diagnosis: Acute on chronic heart failure with reduced EF Acute kidney injury Acute hypoxic respiratory failure Urinary incontinence Hematuria ESBL positive UTI Referrals: Kobi Cornejo MD [Primary Care Provider] - 1 Week Discharge Medications: New ipratropium-albuterol 0.5 mg-3 mg(2.5 mg base)/3 mL Solution For Nebulization 3 ml inhalation RQ4H WHILE AWAKE PRN (Reason: Shortness Of Breath/Wheezing) Qty: 90 0RF tamsulosin 0.4 mg Capsule 0.4 mg PO BEDTIME Qty: 30 0RF enoxaparin 40 mg/0.4 mL Syringe 40 mg subcut Q24H Qty: 4 0RF acetaminophen 325 mg Tablet 650 mg PO Q6H PRN (Reason: Fever, mild pain, or headache) Qty: 30 0RF polyethylene glycol 3350 17 gram Powder In Packet 17 g PO DAILY PRN (Reason: Constipation) Qty: 30 0RF Antacid Ext Str (calcium carb) 300 mg (750 mg) Tablet,Chewable 2.5 tab PO Q6H PRN (Reason: Heartburn) Qty: 30 0RF omeprazole 20 mg Capsule,Delayed Release(Dr/Ec) 20 mg PO DAILY@0630 Qty: 30 0RF insulin lispro [Admelog U-100 Insulin lispro] 100 unit/mL Solution See Protocol subcut QIDACHS Qty: 10 0RF Protocol: Insulin Correction Scale Less than or equal to 110 ---- Give (units): 0 111 to 150 Give (units): 0 151 to 200 Give (units): 2 201 to 250 Give (units): 4 251 to 300 Give (units): 6 301 to 350 Give (units): 8 Greater than 350 Give (units): 10 Call MD if Blood Glucose > : 350 oxycodone 5 mg Tablet 5 mg PO Q4H PRN (Reason: Pain, Severe (Pain Scale 7-10)) Qty: 10 0RF Rx Instructions: Partial Fill upon patient request. melatonin 3 mg Tablet 6 mg PO BEDTIME PRN (Reason: Insomnia) Qty: 30 0RF meropenem 1 gram Recon Soln 1 g IV Q12H Qty: 10 0RF Continued multivitamin with minerals Tablet 1 tab PO DAILY Discontinued vit C-vit [id number] Capsule 1 cap PO DAILY berberine-herbal comb no.18 Capsule 1 cap PO DAILY [id number] Capsule 1 cap PO DAILY D3 Plus K2 Dots 25 mcg (1,000 unit)-90 mcg Tablet,Disintegrating 1 tab PO DAILY Bacillus coagulans-inulin 1 billion-250 cell-mg Capsule 1 cap PO DAILY ashwagandha extract 1 cap PO DAILY krill oil 1 cap PO DAILY Fruit and Vegetable Daily 5-6-150 mg Capsule 1 cap PO DAILY Discharge Orders: Discharge Order (Routine); Ordered 10/07/23 Ordered By: Nedra Romero Diet: Diabetic diet Activity on Discharge: As tolerated Stand Alone Forms: Patient Portal Discharge page Print Language: Hungarian Care Plan Goals: Acute kidney injury Acute on chronic CHF ESBL positive Klebsiella pneumonia UTI Health Concerns: Obesity Diabetes Plan of Treatment: Transferred to [facility] for left right heart catheterization to assess volume status. Assessment: As above
--- NOTE | 2023-10-07 16:22 | HO.WOUND ---
Wound Consult: Initial Attempted 68yr old?female admitted to [facility] [place] on 10/02/23 - See progress notes and H&P for detailed history.? Wound consult placed for Legs and Skin folds.? Arrival to bedside patient was off unit - will attempt assessment at future date and or time.
[2023-10-10 17:18] LABS: NT-proBNP 9436 pg/mL (<125)
== END 2023-10-07 15:01 | disposition short-term general hospital (02) | DRG 291 ==
LOC: HO.ED 19:40 → HO.EDOVER 22:35 → HO.IMC 10-03 14:39
PROVIDERS: Family Medicine; Internal Medicine; Admitting Provider Student in an Organized Health Care Education/Training Program; Emergency Provider Emergency Medicine; PCP Internal Medicine; Visit Provider Hospitalist
DX: I11.0 Hypertensive heart disease with heart failure (principal); I50.23 Acute on chronic systolic (congestive) heart failure; J96.01 Acute respiratory failure with hypoxia; N17.0 Acute kidney failure with tubular necrosis; Z68.44 Body mass index [BMI] 60.0-69.9, adult; Z16.12 Extended spectrum beta lactamase (ESBL) resistance; N39.490 Overflow incontinence; R31.9 Hematuria, unspecified; B96.1 Klebsiella pneumoniae [K. pneumoniae] as the cause of diseases classified elsewhere; I50.813 Acute on chronic right heart failure; E11.9 Type 2 diabetes mellitus without complications; K59.00 Constipation, unspecified; I25.10 Atherosclerotic heart disease of native coronary artery without angina pectoris; E66.01 Morbid (severe) obesity due to excess calories; Z99.81 Dependence on supplemental oxygen; Z71.3 Dietary counseling and surveillance; Z91.148 Patient's other noncompliance with medication regimen for other reason; Z87.891 Personal history of nicotine dependence; Z79.899 Other long term (current) drug therapy
CPT/HCPCS: 36415; 71045; 80048; 81001; 82947; 83036; 83735; 83880; 84484; 85025; 85027; 87086; 87088; 87186; 93005; 99285; C1758; J1335; J1650; J1940; J2185; J2405

== ENCOUNTER → 2023-10-02 18:14 | Outpatient (BNV) | payer MEDICARE, SELFPAY | PROVIDERS: Admitting Provider Student in an Organized Health Care Education/Training Program; Emergency Provider Emergency Medicine; PCP Internal Medicine; Visit Provider Internal Medicine Cardiovascular Disease | DX: R94.31 Abnormal electrocardiogram [ECG] [EKG] (principal) | CPT/HCPCS: 93010 ==

== ENCOUNTER 2023-10-02 22:17 | Outpatient (BNV) | payer MEDICARE, SELFPAY | END 2023-10-06 10:15 | PROVIDERS: Admitting Provider Student in an Organized Health Care Education/Training Program; Emergency Provider Emergency Medicine; PCP Internal Medicine; Visit Provider Internal Medicine Cardiovascular Disease | DX: R94.31 Abnormal electrocardiogram [ECG] [EKG] (principal) | CPT/HCPCS: 93010 ==

== ENCOUNTER → 2023-10-02 22:17 | Outpatient (BNV) | payer MEDICARE, SELFPAY | PROVIDERS: Admitting Provider Student in an Organized Health Care Education/Training Program; Emergency Provider Emergency Medicine; PCP Internal Medicine; Visit Provider Internal Medicine Cardiovascular Disease | DX: I50.9 Heart failure, unspecified (principal); N17.9 Acute kidney failure, unspecified | CPT/HCPCS: 99222; 99233 ==

== ENCOUNTER → 2023-10-02 22:17 | Outpatient (BNV) | payer MEDICARE, SELFPAY | PROVIDERS: Admitting Provider Student in an Organized Health Care Education/Training Program; Emergency Provider Emergency Medicine; PCP Internal Medicine; Visit Provider Internal Medicine Nephrology | DX: N17.0 Acute kidney failure with tubular necrosis (principal) | CPT/HCPCS: 99222 ==

== ENCOUNTER → 2023-10-02 22:17 | Outpatient (BNV) | payer MEDICARE, SELFPAY | PROVIDERS: Admitting Provider Student in an Organized Health Care Education/Training Program; Emergency Provider Emergency Medicine; PCP Internal Medicine; Visit Provider Family Medicine | DX: I50.9 Heart failure, unspecified (principal) | CPT/HCPCS: 99223; 99232; 99239 ==

== ENCOUNTER → 2023-10-02 22:17 | Outpatient (BNV) | payer MEDICARE, SELFPAY | PROVIDERS: Admitting Provider Student in an Organized Health Care Education/Training Program; Emergency Provider Emergency Medicine; PCP Internal Medicine; Visit Provider Urology | DX: N39.490 Overflow incontinence (principal) | CPT/HCPCS: 99222 ==